=== PATIENT | male | born 1950 | race Caucasian/White ===

== ENCOUNTER 2024-06-08 17:13 | Emergency (ER) | payer OTHER, SELFPAY ==
[2024-06-08] VITALS (7 sets, daily range): BP systolic 166–202; BP diastolic 81–110; BMI 32.6
[2024-06-08 17:40] LABS: % Basophils 0.6 % (0-2); % Eosinophils 0.5 % (0-6); % Immature Granulocytes 0.3 % (0-0.5); % Lymphocytes 16.2 % (20.5-51.1); % Monocytes 7.4 % (1.7-9.3); Absolute Basophils 0.1 10^3/uL (0-0.2); Absolute Lymphocytes 1.3 10^3/uL (1.2-3.4); Absolute Monocytes 0.6 10^3/uL (0.1-0.6); Hematocrit 42.2 % (39.0-52.0); Hemoglobin 14.3 g/dL (13.0-18.0); Mean Corp Hgb Conc. 33.9 g/dL (33.0-37.0); Mean Corpuscular Hgb 30.6 pg (27.0-31.0); Mean Corpuscular Volume 90.2 fL (80.0-94.0); Mean Platelet Volume 8.9 fL (7.4-10.4); Nucleated Red Blood Cells % 0 % (-); Platelet Count 226 10^3/uL (130-400); Red Blood Cell Count 4.68 10^6/uL (4.70-6.10); Red Cell Dist. Width 12.8 % (11.5-14.5)
[2024-06-08 17:46] LABS: ALT (SGPT) 24 U/L (0-50); AST (SGOT) 28 U/L (17-59); Albumin 4.9 g/dl (3.5-5.0); Alkaline Phosphatase 73 U/L (38-126); Blood Urea Nitrogen 16 mg/dl (9-20); Calcium 9.7 mg/dl (8.4-10.2); Carbon Dioxide 26 mmol/L (22-30); Chloride 100 mmol/L (98-107); Glucose 115 mg/dl (70-99); Sodium 135 mmol/L (135-145); Total Bilirubin 1.9 mg/dl (0.2-1.3); eGFR > 60.00
--- NOTE | 2024-06-08 21:16 | ED.GENMED ---
History of Present Illness
General
Chief Complaint: Blood Pressure Problem
Source: patient
Exam Limitations: none
Time Seen by Provider: 06/08/24 21:09
History of Present Illness
History of Present Illness:
See MDM
Past History
Past History
ED Past Medical History: Cancer, HTN and Hypercholesterolemia
ED Past Surgical History: Urological (prostatectomy)
Social History
Tobacco: Non-smoker
Alcohol: None
Drug: None
Personal:
Living: with family
Phy Exam
Physical Exam
Physical Exam:
See MDM
Course
Orders/Labs/Results
Orders:
Orders
06/08/24 17:18
Electrocardiogram (*1) Urgent
Reason for Study: Other
Other Reason for Exam: hypertension
06/08/24 17:19
EKG- Treatment ONCE
06/08/24 17:25
CMP [Comprehensive Metabolic Panel] Urgent
Complete Blood Count/With Diff Urgent
06/08/24 21:16
Amlodipine [Norvasc] 10 mg PO ONCE ONE
Abnormal Lab Results
06/08/24
17:25
RBC 4.68 L 10^6/uL
(4.70-6.10)
Lymphocytes % 16.2 L %
(20.5-51.1)
Glucose 115 H mg/dl
(70-99)
Total Bilirubin 1.9 H mg/dl
(0.2-1.3)
06/08/24 17:25
06/08/24 17:25
Vital Signs
Initial and Last Documented VS:
Initial Vital Signs
Temp Pulse Resp Pulse Ox
97.4 F 71 18 99
06/08/24 17:14 06/08/24 17:14 06/08/24 17:14 06/08/24 17:14
Last Documented Vital Signs
Temp Pulse Resp BP Pulse Ox
97.4 F 69 13 166/84 96
06/08/24 17:14 06/08/24 23:00 06/08/24 23:00 06/08/24 23:00 06/08/24 23:00
MDM/Problems Addressed
Differential Diagnosis Includes:
HPI and MDM Narrative:
73-year-old male presenting for evaluation of asymptomatic hypertension. Patient has a recurrence of prostate cancer and is currently on a biologic medicine called his Zytiga. He was told that this medicine will increase his blood pressure.
Because of the increasing blood pressure, his 10 mg of lisinopril was increased to 40 mg. Patient takes his blood pressure every 2 to 3 days. He noticed that his blood pressure has remained elevated today and came in for evaluation. Patient
denies any complaint. Denies headache, shortness of breath, blurry vision, chest pain. Patient is found to have asymptomatic hypertension. Given that this is likely a worsening side effect of his chronic medication, will give dose of amlodipine
and continue to monitor. Blood work done prior to my evaluation showing no signs of endorgan damage
Physical exam
General: Well appearing and non-toxic. Sitting in bed,
HEENT: protecting airway. Pupils equal reactive
Neck: appears supple
CV: No evidence of cyanosis. Regular rate and rhythm
Resp: No accessory muscle use
Abd: Non-distended
Extremities: No deformities. No pitting edema in his legs
Neuro: alert
Psych: Normal affect
Skin: Intact
Problems Addressed including Acute and Chronic Conditions affecting care:
1. Asymptomatic hypertension
Acuity: acute
Prognosis: stable
Details: Likely related to his biologic medication. Patient is already on 40 mg of lisinopril. Will add amlodipine and continue to monitor
2. [ ]
Acuity: acute
Prognosis: stable
Details:
3. [ ]
Acuity: acute
Prognosis: stable
Details:
4. [ ]
Acuity: acute
Prognosis: stable
Details:
5. [ ]
Acuity:
Prognosis:
Details:
Updates
Differential Diagnosis (but not limited to):
Testing considered:
Drug therapy (if applicable): OTC meds, please see d/c instruction regarding Rx drugs
Amount and/or Complexity of Data Reviewed
Clinical info obtained from: Patient
External data reviewed: N/A
Labs I independently reviewed (but not limited to): Creatinine normal
Radiology: N/A
Pulse Ox: not hypoxic
EKG independently reviewed: Sinus rhythm, normal axis, no STEMI
[employer]: Sinus rhythm
Critical Care: N/A
Risk of Complication:
Social Determinants of health: Good social support
Discussed with other providers: N/A
Escalation of Care includes Admit/Obs: After being observed in the Emergency Department, pt stable for discharge.
Occasional wrong word or 'sound a like' substitutions may have occurred due to the inherent limitations of voice recognition software. Read the chart carefully and recognize, using context, where substitutions have occurred.
*Critical Care Note
Total Time (30-74mins, 75-104mins- exclusive of procedures): Not Applicable
ED Attending Note
-
Portions of this chart may have been created with voice recognition software.� Occasional wrong word or��sound alike� substitutions may have occurred due to the inherent limitations of voice recognition software.
Discharge Plan
Departure
Patient Disposition: Home (Routine Discharge)
Date of Disposition: 06/08/24
Time of Disposition: 23:21
Patient with high blood pressure during this ER visit?: Yes
Discharge Problem:
HTN (hypertension)
Instructions: High Blood Pressure (DC), BLOOD PRESSURE
Prescriptions:
New
amlodipine [Norvasc] 10 mg tablet
10 mg PO DAILY Qty: 30 0RF
No Action
levothyroxine 175 mcg tablet
175 mcg PO DAILY
prednisone 5 mg tablet
5 mg PO DAILY
simvastatin 20 mg tablet
20 mg PO QPM
lisinopril 40 mg tablet
40 mg PO DAILY
abiraterone [Zytiga] 250 mg Tablet
1,000 mg PO DAILY
Rx Instructions:
must be taken on empty stomach, at least 1 hr before or 2 hrs after a meal/food. takes at 6am
ciprofloxacin HCl 750 mg tablet
750 mg PO DAILY Qty: 7 0RF
Referrals:
Mane Simpson MD [Family Provider] -
Activity Restrictions/Additional Instructions:
Please return for any worsening symptoms.
You may return at any time if you have further concerns.
Please follow up with your doctor at the first available appointment, preferably this week.
Thank you for choosing [facility].
Interventions
Interventions:
*Risk Screen - Suicide Last Done: 06/08/24 17:14
*General Assessment Last Done: 06/08/24 21:32
*Neglect/Abuse Screening Last Done: 06/08/24 21:49
ED- Fall Risk Assessment Last Done: 06/08/24 21:32
*ED COVID-19 Vaccine History Last Done: 06/08/24 21:32
ED- Cardiac Assessment Last Done: 06/08/24 21:32
ED- Neurological Assessment Last Done: 06/08/24 21:32
ED- Pulmonary Assessment Last Done: 06/08/24 21:32
Discharge Date and Time
Print Language: CZECH
[2024-06-08] MEDS: NORVASC 10 MG PO (21:29)
== END 2024-06-08 23:50 | disposition home or self-care (01) ==
LOC: EMR 17:13
PROVIDERS: Emergency Medicine; EMERGENCY PHYSICIAN Student in an Organized Health Care Education/Training Program; FAMILY PHYSICIAN Family Medicine
DX: I10 Essential (primary) hypertension (principal); E78.00 Pure hypercholesterolemia, unspecified; Z90.79 Acquired absence of other genital organ(s); C61 Malignant neoplasm of prostate
CPT/HCPCS: 99283; 80053; 85025; 93005

== ENCOUNTER → 2024-07-12 09:02 | Outpatient (REF) | payer OTHER, SELFPAY | LOC: RAD 09:02 | PROVIDERS: ATTENDING PHYSICIAN Physician Assistant Medical; FAMILY PHYSICIAN Family Medicine | DX: Z91.89 Other specified personal risk factors, not elsewhere classified (principal); C61 Malignant neoplasm of prostate; C77.8 Secondary and unspecified malignant neoplasm of lymph nodes of multiple regions; Z79.52 Long term (current) use of systemic steroids; R79.89 Other specified abnormal findings of blood chemistry | CPT/HCPCS: 77080 ==

== ENCOUNTER 2025-02-06 17:45 | Inpatient (IN) | payer OTHER, SELFPAY ==
[2025-02-06] VITALS (11 sets, daily range): BP systolic 120–147; BP diastolic 59–82; BMI 31.0; BMI 31.3
--- NOTE | 2025-02-06 09:04 | ED.GENMED ---
History of Present Illness
General
Chief Complaint: Musculo-Skeletal Complaint
Source: patient
Exam Limitations: none
Time Seen by Provider: 02/06/25 09:01
Nursing documentation reviewed up to this point in time: agreed with
History of Present Illness
History of Present Illness:
The patient is a pleasant 74-year-old man with a past medical history of prostate cancer, prostatectomy, and urethral sphincter implant who presents with fairly sudden onset of severe pain in his right groin area. Patient reports the pain started
yesterday. Reports it so painful he cannot walk. Patient reports that while still the pain is extremely mild but with walking, he experiences severe pain in his right groin, right testicle and right inner thigh. Patient reports cough and
congestion about a week ago that is now improved but still reports a dry cough. Patient found to have a fever on arrival to the ED. Patient denies weakness and numbness of the legs. He denies back pain. He denies nausea, vomiting and diarrhea.
Patient reports he also self catheterizes twice a week to drain urine.
Past History
Past History
ED Past Medical History: Cancer, HTN and Hypercholesterolemia
ED Past Surgical History: Urological (prostatectomy)
Social History
Tobacco: Non-smoker
Alcohol: None
Drug: None
Personal:
Living: with family
Employment: Other
Family History
Family History: Other
Review of Systems
Review of Systems
Allergies reviewed?: Yes
All Other Systems: ROS reviewed and negative except as documented in HPI and ROS
Constitutional: Reports chills
EENT: Reports no symptoms
Respiratory: Reports no symptoms
Cardiac: Reports no symptoms
ABD/GI: Reports abdominal pain (Right groin area pain)
: Reports other (Right testicle and groin area pain)
Musculoskeletal: Reports other (Pain rating into right thigh)
Skin: Reports no symptoms
Neurological: Reports no symptoms
Endocrine: Reports no symptoms
Hematologic/Lymphatic: Reports no symptoms
Psychiatric: Reports no symptoms
Phy Exam
Physical Exam
Physical Exam:
Physical Exam
General: no apparent distress, not acutely ill
Neck: supple. no meningeal signs. normal psoterior pharynx
Heart: s1/s2 regular rate and rhythm, no murmur. equal radial pulses.
Lungs: no acute respiratory distress. clear bilaterally
Abdomen: Abdomen is soft throughout. No masses felt. No inguinal hernias felt. Mild tenderness in right testicle area with implantable device felt in right scrotal area. No signs of scrotal cellulitis. No skin redness or
swelling of peritoneum.
Neuro: alert and oriented. no focal neurological deficits
Skin: No crepitus, erythema or swelling of right thigh. No concerning rash
Psychiatric: well kept. interactive and cooperative
Extremities: no edema. no calf tenderness. negative homans. good distal pulses. Strong pulses in bilateral feet. Able to fully extend and flex right hip with no specific pain in right hip.
Course
Orders/Labs/Results
Orders:
Orders
02/06/25 09:10
COVID-19 Antigen Urgent
Source: Nasal Swab
Influenza A+B Rapid Molecular Urgent
KATHLEEN Source: Nasal Swab
Specimen Description:
02/06/25 09:19
Complete Blood Count/With Diff Urgent
Comprehensive Metabolic Panel Urgent
Lactic Acid Urgent
Magnesium Urgent
Urinalysis Reflex To Culture Urgent
Date Specimen was Collected: 02/06/25
Time Specimen was Collected: 09:13
Urine Microscopic Reflex Cult Urgent
Urine Culture Urgent
KATHLEEN Source: U
Specimen Description:
Date Specimen was Collected: 02/06/25
Time Specimen was Collected: 09:13
02/06/25 09:52
0.9% Sodium Chloride 1000 ml [Nss] 1,000 ml IV BOLUS
Acetaminophen [Tylenol] 1,000 mg PO NOW STA
02/06/25 10:16
Ketorolac [Toradol] 30 mg IV NOW STA
02/06/25 11:24
CT Abd/pel Without Iv Or Oral Urgent
Comment:
Reason For Exam: fever, R groin pain
02/06/25 11:25
CefTRIAXone [Rocephin] 1,000 mg IV NOW STA
02/06/25 13:22
Scrotum US [US Scrotum] Urgent
Comment:
Reason For Exam: R groin pain, UTI
02/06/25 13:45
Blood Culture Q30M
KATHLEEN Source: Blood/Venous
Specimen Description:
02/06/25 14:15
Blood Culture Q30M
KATHLEEN Source: Blood/Venous
Specimen Description:
Abnormal Lab Results
02/06/25
09:19
WBC 12.4 H 10^3/uL
(4.8-10.8)
RBC 4.27 L 10^6/uL
(4.70-6.10)
Hgb 12.8 L g/dL
(13.0-18.0)
Hct 38.6 L %
(39.0-52.0)
Absolute Neuts (auto) 10.6 H 10^3/uL
(1.4-6.5)
Absolute Lymphs (auto) 0.6 L 10^3/uL
(1.2-3.4)
Absolute Monos (auto) 1.1 H 10^3/uL
(0.1-0.6)
Neutrophils % 85.6 H %
(42.2-75.2)
Lymphocytes % 4.9 L %
(20.5-51.1)
BUN 22 H mg/dl
(9-20)
Glucose 140 H mg/dl
(70-99)
Total Bilirubin 2.3 H mg/dl
(0.2-1.3)
Ur Occult Blood Reflex 4+ A
(Negative)
Leukocyte Esterase Rfl 3+ A
(Negative)
Urine RBC 40-50 A /HPF
(0-2)
Urine WBC (Reflex) 16-20 A /HPF
(0-5)
Urine Bacteria (Reflex) Few A
(Negative)
Urine Albumin (Reflex) 2+ A
(Neg - Trace)
02/06/25 09:19
02/06/25 09:19
Vital Signs
Initial and Last Documented VS:
Initial Vital Signs
Temp Pulse Resp BP Pulse Ox
101.8 F H 86 16 147/70 96
02/06/25 09:00 02/06/25 09:00 02/06/25 09:00 02/06/25 09:00 02/06/25 09:00
Last Documented Vital Signs
Temp Pulse Resp BP Pulse Ox
101.8 F H 83 13 147/70 97
02/06/25 09:00 02/06/25 09:05 02/06/25 09:05 02/06/25 09:05 02/06/25 09:05
MDM/Problems Addressed
Differential Diagnosis Includes:
Orchitis, epididymitis, infected urethral device, renal colic, septic right hip
MDM/Problems Addressed:
Patient presents with acute pain in right groin area and right inner thigh
Chronic conditions affecting care:
Urinary incontinence
Acute Exacerbation and/or Progression of Chronic Illness:
Patient may have acute urinary infection due to chronic urinary incontinence
*Pulse Oximetry
SaO2: 95
Oxygen Mode of Delivery: Room air
Patient hypoxic: no
*EKG
Interpreted by ED Provider?: NA
*[employer]ling [employer]ader Interpretation
Rate: normal
Interpretation: normal
Rhythm: sinus
*Critical Care Note
Total Time (30-74mins, 75-104mins- exclusive of procedures): Not Applicable
Data Reviewed
Review of Other/Old Records Reveals: Discharge Summary (Discharge summary reviewed from 2022 when patient was septic due to UTI)
Source: patient and spouse
Patient Management
Social determinants of health affecting care: Living situation and Strong social support
Discussion with other providers: Hospitalist and Other (Case discussed with Dr. Almeida from urology who agreed to evaluate patient. He personally looked over patient's CT and did not feel that there was any air or abscess around urethral device)
ED Attending Note
-
Portions of this chart may have been created with voice recognition software.� Occasional wrong word or��sound alike� substitutions may have occurred due to the inherent limitations of voice recognition software.
Discharge Plan
Departure
Patient Disposition: Admit
Date of Disposition: 02/06/25
Time of Disposition: 13:07
Admit to: Med/Surg
Presentation/result/management discussed w/ accepting MD/DO: Hospitalist
Patient with high blood pressure during this ER visit?: Yes
Condition: Good
Covid-19: Negative COVID-19
Discharge Problem:
UTI (urinary tract infection), Fever
Prescriptions:
No Action
levothyroxine 175 mcg tablet
175 mcg PO MOTUWETHFRSA@0600
prednisone 5 mg tablet
5 mg PO DAILY
simvastatin 20 mg tablet
20 mg PO QPM
lisinopril 40 mg tablet
40 mg PO DAILY
abiraterone [Zytiga] 250 mg Tablet
1,000 mg PO DAILY@0600
Rx Instructions:
must be taken on empty stomach, at least 1 hr before or 2 hrs after a meal/food. takes at 6am
amlodipine 5 mg tablet
5 mg PO DAILY
calcium carbonate-vitamin D3 [Calcium + D] 600 mg-5 mcg (200 unit) Tablet
1 tab PO DAILY
Referrals:
Mane Simpson MD [Family Provider, Family Practice]
Interventions
Interventions:
*Risk Screen - Suicide Last Done: 02/06/25 09:00
*General Assessment Last Done: 02/06/25 09:00
*Neglect/Abuse Screening Last Done: 02/06/25 09:00
*ED- Fall Risk Assessment Last Done: 02/06/25 09:00
*ED COVID-19 Vaccine History Last Done: 02/06/25 09:00
*ED Influenza Vaccine History Last Done: 02/06/25 09:00
ED-Musculoskeletal Assessment Last Done: 02/06/25 09:00
Discharge Date and Time
Print Language: TURKISH
[2025-02-06 09:34] LABS: Hematocrit 38.6 % (39.0-52.0); Hemoglobin 12.8 g/dL (13.0-18.0); Mean Corp Hgb Conc. 33.2 g/dL (33.0-37.0); Mean Corpuscular Volume 90.4 fL (80.0-94.0); Nucleated Red Blood Cells % 0 % (-); Platelet Count 194 10^3/uL (130-400); Red Cell Dist. Width 13.2 % (11.5-14.5)
[2025-02-06 09:45] LABS: COVID-19 Antigen Negative (Negative)
[2025-02-06 10:03] LABS: ALT (SGPT) 16 U/L (0-50); AST (SGOT) 18 U/L (17-59); Albumin 3.9 g/dl (3.5-5.0); Alkaline Phosphatase 44 U/L (38-126); Blood Urea Nitrogen 22 mg/dl (9-20); Calcium 8.9 mg/dl (8.4-10.2); Carbon Dioxide 27 mmol/L (22-30); Chloride 106 mmol/L (98-107); Estimated Creatinine Clearance 80 ml/min; Glucose 140 mg/dl (70-99); Magnesium 1.9 mg/dl (1.6-2.3); Potassium 3.8 mmol/L (3.5-5.1); Sodium 137 mmol/L (135-145); Total Protein 6.8 g/dl (6.3-8.2); eGFR > 60.00
[2025-02-06] MEDS: TORADOL 30 MG IV (10:23)
[2025-02-06] MEDS: TYLENOL 1000 MG PO (10:23)
[2025-02-06] MEDS: NSS 1000 IV (10:23)
[2025-02-06 10:46] LABS: Urine Character Clear (Clear)
[2025-02-06 10:51] LABS: Urine Red Blood Cell 40-50 /HPF (0-2); Urine White Cell 16-20 /HPF (0-5)
[2025-02-06] MEDS: ROCEPHIN 1000 MG IV ×2 (12:56→23:06)
--- NOTE | 2025-02-06 14:06 | CM ---
mountain services manager reviewed patient's chart and met with patient and patient lives with spouse in a 1 story home, with 2 steps to enter, patient is independent with adl's and ambulation, no dme, patient drives.
PCP: Dr. Mane Simpson
Pharmacy: [facility]
Plan; Home with spouse when stable.
--- NOTE | 2025-02-06 18:02 | HPS.HSE ---
Addendum entered and electronically signed by Krys Mensah MD 02/06/25 19:01:
I personally performed a history and physical exam of the patient and discussed management with the resident. I reviewed the resident's note and agree with the documented findings and plan of care HPI/CC.
GENERAL: well developed, well nourished, obese male in no apparent distress
HEENT: NC/AT
HEART: regular rate and rhythm, +S1, +S2
LUNGS : clear to auscultation bilaterally
ABDOM: soft, nontender, nondistended, + bowel sounds
EXT: no cyanosis, clubbing, or edema--? fullness in right groin--LAD?, pulled muscle?--no hernia noted by Dr. Ness's exam
NEUROLOGIC: grossly intact
Sepsis due to unknown source possibly urinary--CT scan with stranding around the urinary bladder--WBC elevated and UTI likely--ADMIT--check urine and blood cultures--cont rocephin until cultures back--await urology input
Microscopic hematuria-- Urine analysis shows urine RBC of 40-50/high-power field, 4+ urine occult blood--renal stones, infection, radiation changes all possible--renal US pending
Right lower inguinal pain--presenting complaint--Present on right inguinal area radiating down the inner part of thigh, not able to elicit via palpation-- Scrotal ultrasound shows bilateral testicular microlithiasis which are usually
asymptomatic--Tylenol as needed for pain
Prostate cancer--s/p resection and XRT--Continue with Zytiga and prednisone 5 mg as he takes it with Zytiga to prevent side effects- Every 6 months receives a hormonal shot to his left arm at [facility]--watch for stress dose steroid needs
essential hypertension-- Continue with lisinopril 40 mg and amlodipine 5 mg p.o. daily
Hyperlipidemia- Continue simvastatin
DVT prophy-- Lovenox
code status--Full code
Original Note:
Family Physician
-
Family Physician: Mane Simpson
Chief Complaint
-
Right lower groin pain
History of Present Illness
74-year-old man presents to the ED with his at bedside with past medical history of prostate cancer, prostatectomy, urethral sphincter implant, hypertension, hyperlipidemia, hypothyroidism with sudden onset of severe sharp localized pain in the
right groin area. Pain is less on lying down. Aggravated on movement and when he walks a pound the inner side of his right thigh into his scrotum. On admission labs show a WBC of 12.8, hemoglobin 12.8. CMP shows lactate of 0.9, bili 2.3. His
vitals show a temperature of 101.8 with no tachycardia, increase in respiratory rate, hypotension. He met the criteria for sepsis. He sees Dr. Davis at [facility] for his oncology needs.
Medical History
Past Medical History
Past Medical History: Reports Other (Prostate cancer, hypertension, hypothyroidism, hyper lipidemia)
Past Surgical History: Reports Other (Prostatectomy, urethral sphincter implant, prostatic sling procedure)
Social History
Tobacco: Non-smoker
Alcohol: Occasional
Drug: None
Personal:
Living: With Family
Family History
Family History: Not pertinent
Allergies / Home Medications
Allergies reflects when Allergies were last updated in [employer].
Home Medications with original date entered in [employer]
Allergy/Medication List:
Allergies
Allergy/AdvReac Type Severity Reaction Status Date / Time
No Known Allergies Allergy Verified 06/08/24 17:16
Home Medications
abiraterone 250 mg tablet (Zytiga) 1,000 mg PO DAILY@0600 01/03/23
levothyroxine 175 mcg tablet 175 mcg PO MOTUWETHFRSA@0600 01/03/23
lisinopril 40 mg tablet 40 mg PO DAILY 01/03/23
prednisone 5 mg tablet 5 mg PO DAILY 01/03/23
simvastatin 20 mg tablet 20 mg PO QPM 01/03/23
amlodipine 5 mg tablet 5 mg PO DAILY 02/06/25
calcium 600 mg (as carbonate)-vitamin D3 5 mcg (200 unit) tablet 1 tab PO DAILY 02/06/25
Review of Systems
-
History Source: Patient
A 12 point ROS was completed and negative except as noted: Yes
Abdomen/GI: Reports Abdominal Pain
Physical Exam
Vital Signs
Vital Signs
Temp Pulse Resp BP Pulse Ox
98.9 F 66 16 120/60 95
02/06/25 14:14 02/06/25 14:14 02/06/25 14:14 02/06/25 14:14 02/06/25 14:16
Physical Exam
General: Well Developed
Respiratory: Clear
Cardiac: S1/S2 and Regular Rhythm
GI: Soft, Non Tender, Non Distended, Normal Bowel Sounds and Other (There is a small 1 cm x 1 cm none mobile firm well-circumscribed mass present in the right inguinal area.)
Musculoskeletal: No Clubbing
Skin: Warm and Dry
Neuro: Awake, Alert, Oriented and AO x 3
Laboratory Results
-
02/06/25 09:19
02/06/25 09:19
Laboratory Results
Lactic Acid 0.9 mmol/L (0.7-2.0) 02/06/25 09:19
Total Bilirubin 2.3 mg/dl (0.2-1.3) H 02/06/25 09:19
AST 18 U/L (17-59) 02/06/25 09:19
ALT 16 U/L (0-50) 02/06/25 09:19
Alkaline Phosphatase 44 U/L (38-126) 02/06/25 09:19
Data Reviewed
-
CT Scan: Report Reviewed by me and Discussed with Physician
Lab Data: Labs Reviewed by me and Discussed with Physician
Impression/Plan
-
Sepsis due to unknown source possibly urinary:
- Patient met 2 of the 4 SIRS criteria which were leukocytosis with an increased WBC of 12.8 and a temperature of 101.8
- Differential diagnosis includes cystitis, pyelonephritis, UTI, prostatitis
-Urinalysis shows 3+ leukocyte esterase, 16-20 urine WBC, few urine bacteria this is a clean-catch sample as squamous cells are only 6-10
- Awaiting urine culture and blood culture to determine source of infection
- Continue ceftriaxone as empiric therapy before cultures results so that we can taper to specific organism
-Will hold off on fluids as patient is able to tolerate p.o. intake, no active ongoing losses of fluid, no hypotension
- Urology was consulted
Microscopic hematuria:
-Vitals are stable and patient is afebrile
- Urine analysis shows urine RBC of 40-50/high-power field, 4+ urine occult blood
- Differential diagnosis is kidney stones, radiation cystitis, ureteral stone, glomerulonephritis
- BUN/creatinine function is normal
- Awaiting urine culture and blood cultures
- Will order renal ultrasound
Right lower inguinal pain:
-Present on right inguinal area radiating down the inner part of thigh, not able to elicit via palpation
- Differential diagnosis is inguinal/femoral hernia, muscle strain, urethral sphincter complication
- CT scan of abdomen/pelvis 2 mm calcification in the central pole of the right kidney, most likely nephrolithiasis, potential cystitis, small fat-containing hernia in the right paramedian abdominal wall which is stable, no diverticulitis, normal
appendix
- Scrotal ultrasound shows bilateral testicular microlithiasis which are usually asymptomatic
- Physical examination for inguinal hernia was negative
-Tylenol as needed for pain
- Urology consult placed to investigate a potential urethral sphincter complication
Prostate cancer:
- Continue with Zytiga and prednisone 5 mg as he takes it with Zytiga to prevent side effects
- Patient was diagnosed in [address] Davis at [facility]
- Every 6 months receives a hormonal shot to his left arm at [facility]
essential hypertension:
-Blood pressures 120/60 and stable
- Continue with lisinopril 40 mg and amlodipine 5 mg p.o. daily
Hyperlipidemia:
- Continue simvastatin
DVT prophylaxis: Lovenox 40
Full code
--- NOTE | 2025-02-06 19:10 | CONS.URO ---
Addendum entered and electronically signed by Jos Almeida MD 02/06/25 19:24:
Will order RLE US to r/o DVT
Original Note:
Consultation
-
Date/Time Consultation Performed: 189902/06/25
Performing Provider: Elle
Reason for Consultation: Groin pain, fever
Medical History
History of Present Illness
74M past medical history of prostate cancer, prostatectomy, artificial urethral sphincter implant
Cared for by Dr. Arambula at [place]
Also hx hypertension, hyperlipidemia, hypothyroidism
Presents with sudden onset of severe sharp localized pain in the right groin area. Pain is less on lying down Aggravated on movement and when he walks. Pain is primarily on the inner side of his right thigh and radiates up into his scrotum.
He has a hx of urethral stricture requiring maintenance dilation with CIC and occasional dilation in OR
OTherwise he voids without difficulty
No recent bothersome UTI symptoms
On admission labs show a WBC of 12.8, hemoglobin 12.8. CMP shows lactate of 0.9 Found to have a fever near 102 with no tachycardia, increase in respiratory rate, hypotension. He was admitted for suspected sepsis.
Past Medical History
Past Medical History: Other (as above)
Past Surgical History: Urological
Social History
Tobacco: Non-smoker
Family History
Family History: Reviewed & Not Pertinent
Allergies/Home Medications
Allergies
Allergy/AdvReac Type Severity Reaction Status Date / Time
No Known Allergies Allergy Verified 06/08/24 17:16
Home Medications
�Medication �Instructions �Recorded �Confirmed �Type
abiraterone 250 mg tablet (Zytiga) 1,000 mg PO DAILY@0600 01/03/23 02/06/25 History
levothyroxine 175 mcg tablet 175 mcg PO MOTUWETHFRSA@0600 01/03/23 02/06/25 History
lisinopril 40 mg tablet 40 mg PO DAILY 01/03/23 02/06/25 History
prednisone 5 mg tablet 5 mg PO DAILY 01/03/23 02/06/25 History
simvastatin 20 mg tablet 20 mg PO QPM 01/03/23 02/06/25 History
amlodipine 5 mg tablet 5 mg PO DAILY 02/06/25 02/06/25 History
calcium 600 mg (as 1 tab PO DAILY 02/06/25 02/06/25 History
carbonate)-vitamin D3 5 mcg (200
unit) tablet
Physical Exam
Vital Signs
Vital Signs
Temp Pulse Resp BP Pulse Ox
98.6 F 86 20 131/82 99
02/06/25 18:22 02/06/25 18:22 02/06/25 18:22 02/06/25 18:22 02/06/25 18:22
Lab / Testing Results
Laboratory Results
02/06/25 09:19
02/06/25 09:19
Physical Exam
General: Well Developed, Well Nourished and No Apparent Distress
Respiratory: Non Labored Respirations
GI: Soft and Non Tender
Genito-urinary: No Costovertebral Tend and Other (normal scrotum and testicles, no pain to palpation at any site, AUS pump in good position without induration)
Neuro: AO x 3
Psych: Calm and Intact Judgement
Assessment / Plan
-
74M with prostate cancer s/p prostatectomy, radiation, on ADT
Incontinence s/p AUS >5 years ago
Urethral stricture maintained open with twice weekly CIC
Care managed by Dr. Arambula at [place]
Presenting with R inner thigh pain radiating to scrotum
Fever/sepsis with positive UA
- No signs of abscess, cellulitis, intrascrotal infection, or infected prosthetic device. CT shows no air in soft tissues or around . No induration or tenderness of scrotum, groin, or inner thigh
- No suspected source of groin pain. Would be a very unusual manifestation of UTI. Consider alternate sources - musculoskeletal? Radiculopathy? DVT?
- Continue abx pending culture for possible UTI
Data Reviewed
-
CT Scan: Image personally visualized and interpreted
[2025-02-06] MEDS: OFIRMEV 100 IV (20:55)
--- NOTE | 2025-02-06 22:20 | PTCARENOTE ---
Recieved pt. from ED. Pt. ambulated from stretcher to bed. AAOx3. Pt. oriented to floor and call crawford placed within reach. Patient care ongoing
[2025-02-06] MEDS: OSCAL 500 + D 500 MG PO (23:06)
[2025-02-06] MEDS: STERILE WATER FOR INJECTION 10 ML IV (23:06)
[2025-02-06] MEDS: LOVENOX 40 MG SC (23:06)
[2025-02-07] MEDS: SYNTHROID 175 MCG PO (05:55)
[2025-02-07] MEDS: NON-FORMULARY ITEM 1000 MG PO (05:55)
[2025-02-07 07:00] VITALS: BP 130/88
[2025-02-07 07:09] LABS: Hematocrit 34.9 % (39.0-52.0); Hemoglobin 11.7 g/dL (13.0-18.0); Mean Corp Hgb Conc. 33.5 g/dL (33.0-37.0); Mean Corpuscular Volume 90.4 fL (80.0-94.0); Nucleated Red Blood Cells % 0 % (-); Platelet Count 165 10^3/uL (130-400); Red Cell Dist. Width 13.0 % (11.5-14.5)
[2025-02-07 07:11] LABS: INR 1.17; PT 15.2 Sec (11.4-14.6)
[2025-02-07 07:12] LABS: APTT 36.5 Sec (23.4-35.0)
[2025-02-07 07:32] LABS: ALT (SGPT) 13 U/L (0-50); AST (SGOT) 16 U/L (17-59); Albumin 3.4 g/dl (3.5-5.0); Alkaline Phosphatase 44 U/L (38-126); Blood Urea Nitrogen 17 mg/dl (9-20); Calcium 8.7 mg/dl (8.4-10.2); Carbon Dioxide 24 mmol/L (22-30); Chloride 107 mmol/L (98-107); Estimated Creatinine Clearance 103 ml/min; Glucose 108 mg/dl (70-99); Magnesium 1.9 mg/dl (1.6-2.3); Potassium 3.5 mmol/L (3.5-5.1); Sodium 134 mmol/L (135-145); Total Protein 6.3 g/dl (6.3-8.2); eGFR > 60.00
[2025-02-07] MEDS: OSCAL 500 + D PO ×2 (08:00→08:07)
[2025-02-07] MEDS: ZESTRIL 40 MG PO (08:03)
[2025-02-07] MEDS: NORVASC 5 MG PO (08:03)
[2025-02-07] MEDS: DELTASONE 5 MG PO (08:10)
[2025-02-07 09:20] LABS: Glycohemoglobin (HgbA1c) 5.6 % (4.0-5.6)
[2025-02-07] MEDS: ROCEPHIN 2000 MG IV (13:48)
[2025-02-07] MEDS: STERILE WATER FOR INJECTION 20 ML IV (13:48)
[2025-02-07] MEDS: TYLENOL 650 MG PO ×3 (13:48→23:00)
[2025-02-07] MEDS: FLUSH (NSS) 1 FLUSH IV (13:48)
[2025-02-07] MEDS: TORADOL 15 MG IV ×2 (14:00→20:09)
--- NOTE | 2025-02-07 14:04 | CM ---
Patient seen at bedside with physician on . Patient for Orthoded[facility] consult per physician. Patient continues to complain of difficulty with walking and plan is for PT/OT assessment when medically appropriate. CM will continue to follow for
discharge planning needs.
Plan; home with VN and watch for possible SNF needs
[2025-02-07 14:49] VITALS: BP 134/65
[2025-02-07 15:42] VITALS: BP 134/65; PULSE 81; O2SAT 96
--- NOTE | 2025-02-07 15:59 | W.PN.HOSP.TC ---
Addendum entered and electronically signed by Krys Mensah MD 02/07/25 18:20:
I saw and evaluated the patient independently. I reviewed and discussed the resident�s note and agree with findings and plan as documented by Dr. Ness.
GENERAL: well developed, well nourished, obese male in no apparent distress
HEENT: NC/AT
HEART: regular rate and rhythm, +S1, +S2
LUNGS : clear to auscultation bilaterally
ABDOM: soft, nontender, nondistended, + bowel sounds
EXT: no cyanosis, clubbing, or edema--? fullness in right groin--LAD?, pulled muscle?--no hernia noted by Dr. Ness's exam
NEUROLOGIC: grossly intact
Sepsis due to unknown source possibly urinary--CT scan with stranding around the urinary bladder--WBC elevated and UTI likely- urine and blood cultures negative--can stop rocephin--apprec urology input
Microscopic hematuria-- Urine analysis shows urine RBC of 40-50/high-power field, 4+ urine occult blood--renal stones, infection, radiation changes all possible--renal US WNL
Right lower inguinal pain--presenting complaint--Present on right inguinal area radiating down the inner part of thigh, not able to elicit via palpation-- Scrotal ultrasound shows bilateral testicular microlithiasis which are usually
asymptomatic--Tylenol as needed for pain--US neg for DVT--concern for possible musculoskeletal disease?
Prostate cancer--s/p resection and XRT--Continue with Zytiga and prednisone 5 mg as he takes it with Zytiga to prevent side effects- Every 6 months receives a hormonal shot to his left arm at [facility]--watch for stress dose steroid needs
essential hypertension-- Continue with lisinopril 40 mg and amlodipine 5 mg p.o. daily
Hyperlipidemia- Continue simvastatin
DVT prophy-- Lovenox
code status--Full code
Original Note:
Today's Communication/Plan
-
-
Assessment / Plan
Assessment / Plan
Sepsis due to unknown source possibly urinary:
- Patient met 2 of the 4 SIRS criteria which were leukocytosis with an increased WBC of 12.8 and a temperature of 101.8
- Differential diagnosis includes cystitis, pyelonephritis, UTI, prostatitis
-Urinalysis shows 3+ leukocyte esterase, 16-20 urine WBC, few urine bacteria this is a clean-catch sample as squamous cells are only 6-10
- urine and blood cultures negative, will DC antibiotics
-Will hold off on fluids as patient is able to tolerate p.o. intake, no active ongoing losses of fluid, no hypotension
Microscopic hematuria:
- Vitals are stable and patient is afebrile
- Urine analysis shows urine RBC of 40-50/high-power field, 4+ urine occult blood
- Differential diagnosis is kidney stones, radiation cystitis, ureteral stone, glomerulonephritis
- BUN/creatinine function is normal
- Renal u/s negative for any abnormalities
- Will consider a urology outpatient follow up
Right lower inguinal pain:
-Present on right inguinal area radiating down the inner part of thigh, not able to elicit via palpation which is his presenting complaint
- Differential diagnosis is inguinal/femoral hernia, muscle strain, urethral sphincter complication, DVT
- CT scan of abdomen/pelvis 2 mm calcification in the central pole of the right kidney, most likely nephrolithiasis, potential cystitis, small fat-containing hernia in the right paramedian abdominal wall which is stable, no diverticulitis, normal
appendix
- Scrotal ultrasound shows bilateral testicular microlithiasis which are usually asymptomatic
- Physical examination for inguinal hernia was negative
- Ordered both IV ketorolac and Tylenol for his pain
- U/S lower extremity negative for DVT
- Urology wants to consider alternate sources such as musculoskeletal or radiculopathy
- Ordered physical therapy and occupational therapy
Prostate cancer:
- Continue with Zytiga and prednisone 5 mg as he takes it with Zytiga to prevent side effects
- Patient was diagnosed in [address] Davis at [facility]
- Every 6 months receives a hormonal shot to his left arm at [facility]
essential hypertension:
-Blood pressures 135/65 and stable
- Continue with lisinopril 40 mg and amlodipine 5 mg p.o. daily
Anticipated Discharge: 24 - 48 hours
Subjective/Interval History
-
Date of Service: February 07, 2025
No overnight events
Patient is stating that his pain is more severe than yesterday in the same right lower quadrant inguinal region shooting down the inner aspect of his thigh. He states that he needs better pain control medication.
Objective Data
-
Labs:
Laboratory Results
02/07/25
06:46
WBC 9.2
Hgb 11.7 L
Hct 34.9 L
Plt Count 165
PT 15.2 H
INR 1.17
APTT 36.5 H
Sodium 134 L
Potassium 3.5
Chloride 107
Carbon Dioxide 24
BUN 17
Creatinine 0.7
Glucose 108 H
Calcium 8.7
Total Bilirubin 1.8 H
AST 16 L
ALT 13
Alkaline Phosphatase 44
Vital Signs:
Vital Signs
Temp Pulse Resp BP Pulse Ox
100.2 F 81 18 134/65 96
02/07/25 14:49 02/07/25 14:49 02/07/25 14:49 02/07/25 14:49 02/07/25 14:49
I&O
02/06/25 02/07/25 02/08/25
06:59 06:59 06:59
Intake Total 480 / 480
Balance 480 / 480
Review of Systems
-
All other systems: Reviewed and negative
Abdomen/GI: Reports Abdominal Pain
Physical Exam
-
General: No Apparent Distress and Comfortable
HEENT: Negative Oxygen
Respiratory: Clear to Auscultation
Cardiac: Regular Rhythm and S1/S2; Negative Murmur or Rub
GI: Soft, Nontender, Nondistended and Normal Bowel Sounds
Musculoskeletal: No Edema
Neuro: Awake, Alert, Oriented, No Motor Deficits and Nonfocal/Grossly Intact
Psych: Calm
Data Reviewed
-
Labs: Labs Reviewed by me and Discussed with Physician
[2025-02-07] MEDS: LOVENOX 40 MG SC (18:20)
[2025-02-07] MEDS: LIPITOR 10 MG PO (18:20)
[2025-02-07] MEDS: OSCAL 500 + D 500 MG PO (22:56)
[2025-02-07 23:02] VITALS: BP 119/55
--- NOTE | 2025-02-08 02:28 | DOWNTIME ---
There was a [employer] Downtime on 02/08/2025 from 0100 to 02/08/2025 at 0215. Downtime documentation of patient's care, including medication administrations, has been reconciled in the electronic record per guidelines. Refer to the
patient's paper chart under the miscellaneous tab to see printed paper medication records and downtime forms.
[2025-02-08] MEDS: TYLENOL 650 MG PO ×2 (06:02→12:15)
[2025-02-08] MEDS: SYNTHROID 175 MCG PO (06:02)
[2025-02-08] MEDS: NON-FORMULARY ITEM 1000 MG PO (06:03)
[2025-02-08] MEDS: TORADOL 15 MG IV ×2 (06:15→14:43)
[2025-02-08 07:00] VITALS: BP 123/67
[2025-02-08] MEDS: DELTASONE 5 MG PO (07:34)
[2025-02-08 07:35] LABS: Hematocrit 35.8 % (39.0-52.0); Hemoglobin 11.9 g/dL (13.0-18.0); Mean Corp Hgb Conc. 33.2 g/dL (33.0-37.0); Mean Corpuscular Volume 92.3 fL (80.0-94.0); Nucleated Red Blood Cells % 0 % (-); Platelet Count 183 10^3/uL (130-400); Red Cell Dist. Width 13.2 % (11.5-14.5)
[2025-02-08] MEDS: NORVASC PO (07:35)
[2025-02-08] MEDS: ZESTRIL PO (07:35)
[2025-02-08] MEDS: ZESTRIL 40 MG PO (08:13)
[2025-02-08 08:22] LABS: ALT (SGPT) 13 U/L (0-50); AST (SGOT) 17 U/L (17-59); Albumin 3.4 g/dl (3.5-5.0); Alkaline Phosphatase 44 U/L (38-126); Blood Urea Nitrogen 16 mg/dl (9-20); Calcium 8.2 mg/dl (8.4-10.2); Carbon Dioxide 22 mmol/L (22-30); Chloride 106 mmol/L (98-107); Estimated Creatinine Clearance 103 ml/min; Glucose 106 mg/dl (70-99); Magnesium 2.2 mg/dl (1.6-2.3); Potassium 3.9 mmol/L (3.5-5.1); Sodium 136 mmol/L (135-145); Total Protein 6.3 g/dl (6.3-8.2); eGFR > 60.00
[2025-02-08 11:14] VITALS: BP 136/77; PULSE 70; O2SAT 97
--- NOTE | 2025-02-08 11:22 | PTOTSP ---
Pt currently at independent level with basic self care, transfers and functional mobility in room, bathroom and x household distances without AD. No further skilled OT indicated at this time
--- NOTE | 2025-02-08 14:20 | W.PN.HOSP.TC ---
Addendum entered and electronically signed by Krys Mensah MD 02/08/25 15:49:
I saw and evaluated the patient independently. I reviewed and discussed the resident�s note and agree with findings and plan as documented by Dr. Ness.
GENERAL: well developed, well nourished, obese male in no apparent distress
HEENT: NC/AT
HEART: regular rate and rhythm, +S1, +S2
LUNGS : clear to auscultation bilaterally
ABDOM: soft, nontender, nondistended, + bowel sounds
EXT: no cyanosis, clubbing, or edema
NEUROLOGIC: grossly intact
Sepsis due to unknown source --CT scan with stranding around the urinary bladder-- urine and blood cultures negative--can stop rocephin--apprec urology input
Microscopic hematuria-- Urine analysis shows urine RBC of 40-50/high-power field, 4+ urine occult blood--renal stones, infection, radiation changes all possible--renal US WNL
Right lower inguinal pain--presenting complaint--Present on right inguinal area radiating down the inner part of thigh, not able to elicit via palpation-- Scrotal ultrasound shows bilateral testicular microlithiasis which are usually
asymptomatic--Tylenol as needed for pain--US neg for DVT--concern for possible musculoskeletal disease?--will send pt home with 600mg motrin Q8H prn--f/u with PCP
Prostate cancer--s/p resection and XRT--Continue with Zytiga and prednisone 5 mg as he takes it with Zytiga to prevent side effects- Every 6 months receives a hormonal shot to his left arm at [facility]--watch for stress dose steroid needs
essential hypertension-- Continue with lisinopril 40 mg and amlodipine 5 mg p.o. daily
Hyperlipidemia- Continue simvastatin
DVT prophy-- Lovenox
code status--Full code
Original Note:
Today's Communication/Plan
-
- discharge today with follow up instuctions
Assessment / Plan
Assessment / Plan
Resolved Sepsis due to unknown source possibly urinary:
- Stable on discharge, vitals stable and afebrile
- Patient met 2 of the 4 SIRS criteria which were leukocytosis with an increased WBC of 12.8 and a temperature of 101.8
- Differential diagnosis includes cystitis, pyelonephritis, UTI, prostatitis
-Urinalysis shows 3+ leukocyte esterase, 16-20 urine WBC, few urine bacteria this is a clean-catch sample as squamous cells are only 6-10
- urine and blood cultures negative, will DC antibiotics
-Will hold off on fluids as patient is able to tolerate p.o. intake, no active ongoing losses of fluid, no hypotension
Microscopic hematuria:
- Vitals are stable and patient is afebrile
- Urine analysis shows urine RBC of 40-50/high-power field, 4+ urine occult blood
- Differential diagnosis is kidney stones, radiation cystitis, ureteral stone, glomerulonephritis
- BUN/creatinine function is normal
- Renal u/s negative for any abnormalities
- Will add urology follow up on discharge
Right lower inguinal pain:
-Present on right inguinal area radiating down the inner part of thigh, not able to elicit via palpation which is his presenting complaint
- Differential diagnosis is inguinal/femoral hernia, muscle strain, urethral sphincter complication, DVT
- CT scan of abdomen/pelvis 2 mm calcification in the central pole of the right kidney, most likely nephrolithiasis, potential cystitis, small fat-containing hernia in the right paramedian abdominal wall which is stable, no diverticulitis, normal
appendix
- Scrotal ultrasound shows bilateral testicular microlithiasis which are usually asymptomatic
- Physical examination for inguinal hernia was negative
- Ordered both IV ketorolac and Tylenol for his pain
- U/S lower extremity negative for DVT
- Urology wants to consider alternate sources such as musculoskeletal or radiculopathy
- PT/OT states he has independent function and does not require OT. PT Will follow patient in house.
- Please follow up with PCP in 5 days for further evaluation of musculoskeletal pain.
- Provided script for ibuprofen 600 mg q8 into 5 days for the pain.
Prostate cancer:
- Continue with Zytiga and prednisone 5 mg as he takes it with Zytiga to prevent side effects
- Patient was diagnosed in [address] Davis at [facility]
- Every 6 months receives a hormonal shot to his left arm at [facility]
essential hypertension:
-Blood pressures 123/62 and stable
- Continue with lisinopril 40 mg and amlodipine 5 mg p.o. daily
Anticipated Discharge: Today
Subjective/Interval History
-
Date of Service: February 08, 2025
No overnight events
Patient's pain in right lower inguinal area is much better after we started him on IV ketorolac and Tylenol yesterday. He rates the pain as a 3 out of 10. Pain is still present on exertion and I will be less than before due to initiation of recent
pain medication.
Objective Data
-
Labs:
Laboratory Results
02/08/25
06:58
WBC 10.4
Hgb 11.9 L
Hct 35.8 L
Plt Count 183
Sodium 136
Potassium 3.9
Chloride 106
Carbon Dioxide 22
BUN 16
Creatinine 0.7
Glucose 106 H
Calcium 8.2 L
Total Bilirubin 1.0
AST 17
ALT 13
Alkaline Phosphatase 44
Vital Signs:
Vital Signs
Temp Pulse Resp BP Pulse Ox
98.8 F 67 18 123/62 96
02/08/25 07:00 02/08/25 07:00 02/08/25 07:00 02/08/25 08:13 02/08/25 07:00
I&O
02/07/25 02/08/25 02/09/25
06:59 06:59 06:59
Intake Total 480 / 480 1260 / 1260
Balance 480 / 480 1260 / 1260
Review of Systems
-
All other systems: Reviewed and negative
Constitutional: Denies Fever, Weight Loss, Fatigue, Night Sweats or Chills
Respiratory: Denies Cough, Hemoptysis or Trouble Breathing
Cardiac: Denies Chest Pain, Diaphoresis, Palpitations or Syncope
Abdomen/GI: Denies Abdominal Pain, Nausea, Vomiting or Diarrhea
Genitourinary: Reports Dark Urine; Denies Dysuria, Frequency, Flank Pain, Incontinence, Difficulty Voiding, Urgency or Bleeding
Musculoskeletal: Reports Muscle Pain (Right lower inguinal area)
Neuro: Denies Dizzy, Headache, Weakness, Numbness or Ataxia
Hematologic / Lymphatic: Denies Bleeding
Physical Exam
-
General: Well Developed, Well Nourished and No Apparent Distress
HEENT: Negative Oxygen
Respiratory: Clear to Auscultation
Cardiac: Regular Rhythm and S1/S2; Negative Murmur or Rub
GI: Soft, Nontender, Nondistended and Normal Bowel Sounds
Musculoskeletal: No Edema
Neuro: Awake, Alert, Oriented, No Motor Deficits and Nonfocal/Grossly Intact
Psych: Calm
[2025-02-08 15:27] VITALS: BP 133/73
--- NOTE | 2025-02-08 15:45 | W.DCSUMMARY ---
Addendum entered and electronically signed by Krys Mensah MD 02/08/25 19:33:
Read, reviewed, and agree. See same day progress note for additional details. Time spent coordinating care, DC planning, review of DC plan of care with resident, transition of care, review of records in EMR, med rec, consults, notes, d/w
consultants, nursing, family, and CM = 33 minutes
Original Note:
Discharge Summary
Discharge Data
Date of Admission: 02/06/25
Date of Discharge: 02/08/25
-
Pending Results: No
Hospital Course
Discharging Physician : Dr. Krys Mensah and Dr. Jose Ness
Disposition : Home
Primary care physician : Dr. Denis Simpson
Principal Discharge diagnosis : Sepsis due to unknown source, microscopic hematuria, right lower inguinal pain
Chronic Discharge diagnosis : Prostate cancer status postresection and XRT, essential hypertension, hyperlipidemia
Hospital Course : 74-year-old man presents to the ED with his at bedside with past medical history of prostate cancer, prostatectomy, urethral sphincter implant, hypertension, hyperlipidemia, hypothyroidism with sudden onset of severe sharp
localized pain in the right groin area and he met 2 of 4 SIRS criteria.
Problem #1: Sepsis due to unknown source
- Patient presents to ED on 02/06/2025. Patient met 2 of the 4 SIRS criteria, which were WBC of 12.8 and a sustained temperature of 101.8. Urine analysis showed 3+ leukocyte esterase, 16-20 urine WBC, few urine bacteria, this is a clean-catch
sample. Patient placed on IV empiric ceftriaxone. No fluids as patient is able to tolerate p.o. intake and has no active ongoing losses of fluid plus no hypotension. Urine and blood cultures negative, so then we discontinued empiric antibiotics.
On discharge patient does not have fever and vitals are stable. CT scan of the abdomen pelvis shows 2 mm calcification central pole of the right kidney, most likely nephrolithiasis, potential cystitis, small fat-containing hernia in the right
paramedian abdominal watch was stable, no diverticulitis, normal appendix. Follow-up CBC and CMP with PCP in 1 week. Follow-up urology in 1 week.
Problem #2: Microscopic hematuria
- Urinalysis shows urine RBC of 40-50 per high-power field, 4+ urine occult blood. Differential diagnoses kidney stones versus radiation cystitis versus ureteral stone versus glomerulonephritis. Renal ultrasound is negative for any abnormalities
and BUN/creatinine function is normal. Please follow-up with PCP in 1 week for further workup.
Problem #3: Right lower inguinal pain
-This is the patient's presenting complaint, it is present on the right inguinal area radiating down the inner part of the thigh not able to elicit via palpation. Scrotal ultrasound shows bilateral testicular microlithiasis which is usually
asymptomatic. Physical examination for inguinal hernia was negative. Patient was placed on IV ketorolac and Tylenol for his pain which helped. Ultrasound lower extremity negative for DVT. Urology wants to consider alternative sources such as a
musculoskeletal or radiculopathy. Patient was seen by physical therapy and Occupational Therapy. Discharge patient on 600 mg of ibuprofen Q8 hourly for 5 days to help suppress the pain until he is seen by PCP. Follow-up with PCP in 1 week to
further evaluate for musculoskeletal cause.
Problem #4: Prostate cancer status postresection and XRT
- Diagnosed with prostate cancer in 2008, continue with Zytiga and prednisone [address] follows [address] Arambula at [facility]. He receives hormonal shot to his left arm every 6 months at [facility].
Problem #5: Essential hypertension
-Blood pressure is 133/73 on discharge and stable. Continue with lisinopril 40 mg and amlodipine 5 mg p.o. daily.
Problem #6: Hyperlipidemia
-Continue home dose simvastatin 20 mg.
Important imaging findings :
Abdominal/pelvis CT: 02/06/2025
IMPRESSION:
2 mm calcification in the central upper pole the right kidney, which is likely a small nephrolith. No evidence for ureteral calculi bilaterally.
Status post prostatectomy with a penile prosthesis present.
Slight stranding of the fat anterior to the urinary bladder, and please correlate with any clinical signs or symptoms that would suggest cystitis.
Not mentioned above, there is a small fat-containing hernia in the right paramedian abdominal wall, located 5 cm superior to the umbilicus, stable.
Colonic diverticula with no CT evidence for diverticulitis. The appendix appears normal.
Bony degenerative changes as described.
Scrotum ultrasound 02/06/2025
FINDINGS:
RIGHT TESTICLE: The right testicle measures 3.2 x 1.7 x 1.8 cm in size. There are multiple small hyperechoic foci in the right testicle consistent with testicular microlithiasis. There is arterial and venous blood flow demonstrated within the right
testicle on color duplex evaluation and spectral duplex waveform analysis. The right epididymal head measures 8.4 x 5.6 x 6.2 mm in size. There is no right-sided hydrocele.
LEFT TESTICLE: The left testicle measures 2.7 x 1.4 x 2.0 cm in size. There are multiple tiny hyperechoic foci in the left testicle consistent with testicular microlithiasis. There is arterial and venous blood flow demonstrated within the left
testicle on color duplex evaluation and spectral duplex waveform analysis. The left epididymal head measures 6.1 x 5.2 x 7 mm in size. There is no left-sided hydrocele.
IMPRESSION:
BILATERAL TESTICULAR MICROLITHIASIS.
Peripheral vascular ultrasound 02/07/2025
IMPRESSION: No evidence of deep venous thrombosis of the right lower extremity.
Renal ultrasound 02/07/2025
FINDINGS: The right kidney measures 10.9 cm in length and the left kidney measures 12.3 cm in length. The bilateral kidneys show no signs of hydronephrosis, focal lesions, or calcifications. No perinephric collection is seen.
The urinary bladder virtually completely empty, patient voided just prior to obtaining this study. Bilateral ureteral jets are not seen.
IMPRESSION: Unremarkable sonographic appearance of the kidneys bilaterally.
Procedure findings :
Discharge Plan
-
Patient Disposition: Home (Routine Discharge)
Discharge Diagnosis/Procedures: sepsis due to unknown source, microscopic hematuria, right lower inguinal pain, prostate cancer status post resection and XRT, essential hypertension, hyperlipidemia
Condition: Fair
Diet: Low Cholesterol
Activity: As tolerated
Driving Restrictions: Not until seen by your Dr
Bathing Restrictions: None
Blood Work: CBC and CMP with PCP in 1 week
Referrals:
Mane Simpson MD [Family Provider, Family Practice] - in less than 1 week
Jos Almeida MD [Active, Urology] - in less than 1 week
Additional Discharge Medication Instructions: Take ibuprofen 600 mg (1 tablet) every 8 hours if needed. Please take medication with food.
Prescriptions:
New
ibuprofen 600 mg tablet
600 mg PO Q8H PRN (Reason: pain) 5 Days Qty: 15 0RF
Rx Instructions:
PLEASE TAKE MEDICATION WITH FOOD
Continued
levothyroxine 175 mcg tablet
175 mcg PO MOTUWETHFRSA@0600
prednisone 5 mg tablet
5 mg PO DAILY
simvastatin 20 mg tablet
20 mg PO QPM
lisinopril 40 mg tablet
40 mg PO DAILY
abiraterone [Zytiga] 250 mg Tablet
1,000 mg PO DAILY@0600
Rx Instructions:
must be taken on empty stomach, at least 1 hr before or 2 hrs after a meal/food. takes at 6am
amlodipine 5 mg tablet
5 mg PO DAILY
calcium carbonate-vitamin D3 600 mg-5 mcg (200 unit) Tablet
1 tab PO DAILY
Discharge Orders:
Discharge Patient (As Directed); Ordered 02/08/25
Ordered By: Jose Ness
Discharge Date and Time
Print Language: SERBIAN
--- NOTE | 2025-02-08 15:51 | CM ---
Patient seen at bedside with physicians on . Patient declined VN and competed IMM signed form placed on chart. CM will continue to follow for discharge planning needs.
Plan; home with family, no needs at this time.
== END 2025-02-08 15:47 | disposition home or self-care (01) | DRG 872 ==
LOC: 4 WEST ACU 17:45
PROVIDERS: ADMITTING PHYSICIAN Internal Medicine; CONSULT PHYSICIAN Urology; EMERGENCY PHYSICIAN Emergency Medicine; FAMILY PHYSICIAN Family Medicine
DX: A41.9 Sepsis, unspecified organism (principal); N39.0 Urinary tract infection, site not specified; I10 Essential (primary) hypertension; C61 Malignant neoplasm of prostate; E03.9 Hypothyroidism, unspecified; R10.31 Right lower quadrant pain; E66.9 Obesity, unspecified; N20.0 Calculus of kidney; R31.29 Other microscopic hematuria; Z11.52 Encounter for screening for COVID-19; Z68.31 Body mass index [BMI] 31.0-31.9, adult; Z79.890 Hormone replacement therapy; Z79.899 Other long term (current) drug therapy
CPT/HCPCS: 74176; 76770; 76870; 80053; 81003; 81015; 83036; 83605; 83735; 85025; 85610; 85730; 87040; 87086; 87502; 87811; 93971; 93976; 96361; 96374; 97162; 97165; 99285

== ENCOUNTER 2025-03-14 17:57 | Inpatient (IN) | payer OTHER, SELFPAY ==
[2025-03-14] VITALS (7 sets, daily range): BP systolic 133–160; BP diastolic 62–72; BMI 29.8
--- NOTE | 2025-03-14 13:45 | ED.GENMED ---
History of Present Illness
<Reyna Ramirez MD, Resident - Last Filed: 03/14/25 17:04>
General
Chief Complaint: Musculo-Skeletal Complaint
Source: patient
Time Seen by Provider: 03/14/25 13:19
History of Present Illness
History of Present Illness:
Patient is a 74-year-old male with past medical history significant for essential hypertension, hyperlipidemia, hypothyroidism, prostate cancer s/p prostatectomy with here with complaint of left knee pain and fever.
He was in his usual state of health, awakened at middle of night around 2 AM when he had sudden severe pain in his left knee. Denies any trauma, fall or injury to the knee. He does report he had been relying on his left knee while ambulating
because of pain in his right knee and back. He was not aware that he had fever until he came to the ER this morning due to difficulty in ambulation.
In the ER, he has a febrile 101.5 �F, he is tachycardic and is having rigors and chills. He fulfills 2 out of 4 criteria for SIRS.
He was recently discharged from hospital in January 2025 after being treated for fever of unknown origin.
Denies any chest pain, shortness of breath, abdominal pain, nausea, vomiting, dizziness, lightheadedness, near syncope or syncopal episode
Past History
<Reyna Ramirez MD, Resident - Last Filed: 03/14/25 17:04>
Past History
ED Past Medical History: Cancer, HTN and Hypercholesterolemia
ED Past Surgical History: Urological (prostatectomy)
Social History
Tobacco: Non-smoker
Alcohol: None
Drug: None
Personal:
Living: with family
Employment: Other
Family History
Family History: Other
Phy Exam
<Reyna Ramirez MD, Resident - Last Filed: 03/14/25 17:04>
General Physical Exam
General Presentation: moderate distress (Due to pain in the left knee and continues rigors/chills)
General age: appears stated age
General Skin: feels hot
General Habitus: normal
General Mental: alert
Cardiovascular Exam
Cardiovascular Exam: regular rate/rhythm, no edema, no murmur and normal peripheral pulses
Pulmonary Exam
Pulmonary Exam: lungs clear, no respiratory distress, no rales, no rhonchi and no wheezing
Gastrointestinal Exam
Gastrointestinal Exam: normal bowel sounds, non tender and soft
Neurological Exam
Neurological Exam: alert, oriented x3, no motor deficits and no sensory deficits
Musculoskeletal Exam
Musculoskeletal Exam: joint swelling (Left knee swelling with limited range of motion due to pain) and neuro vasc intact
Skin Exam
Skin Exam: normal color, warm/dry and no rash
Sepsis
<Reyna Ramirez MD, Resident - Last Filed: 03/14/25 17:04>
Sepsis Screening
Sepsis Assessment: Sepsis
Sepsis Screen
Sepsis Screen: Sepsis
Date: 03/14/25
Time: 17:02
<Linda Colón MD - Last Filed: 03/14/25 18:41>
Sepsis Screen
Sepsis Screen: Sepsis
Date: 03/14/25
Time: 18:40
Course
<Reyna Ramirez MD, Resident - Last Filed: 03/14/25 17:04>
Orders/Labs/Results
Orders:
Orders
03/14/25
CMP [Comprehensive Metabolic Panel] Urgent
Lactate Level [Lactic Acid] Urgent
03/14/25 13:23
CR Knee - Left 4 Or More View* Urgent
Comment:
Reason For Exam: pain, swelling
03/14/25 13:32
CBC/With Diff [Complete Blood Count/With Diff] Urgent
Erythrocyte Sed Rate Urgent
Comment: ADD ON
Urinalysis Reflex To Culture Urgent
Date Specimen was Collected: 03/14/25
Time Specimen was Collected: 14:19
03/14/25 13:46
Add On- LAB Urgent
Tests Added?: TSH REFLEX TO T4,CRP,ESR,VENICE
03/14/25 13:55
Ketorolac [Toradol] 30 mg IV NOW ONE
03/14/25 13:56
Acetaminophen [Tylenol] 1,000 mg PO NOW ONE
03/14/25 14:13
VENICE, IgG Reflex to HEp-2 [S] Urgent
Comment: ADD ON
C-Reactive Protein Urgent
Comment: ADD ON
TSH Reflex To Free T4 Urgent
Comment: ADD ON
Blood Culture Urgent
KATHLEEN Source: Blood/Venous
Specimen Description:
Date Specimen was Collected: 03/14/25
Time Specimen was Collected: 13:58
03/14/25 15:20
Oxycodone [Roxicodone] 5 mg PO NOW ONE
03/14/25 15:38
Blood Culture Urgent
KATHLEEN Source: Blood/Venous
Specimen Description:
Date Specimen was Collected: 03/14/25
Time Specimen was Collected: 15:35
03/14/25 16:17
Add On- LAB Urgent
Tests Added?: lyme titers,rheumatoid factor
03/14/25 17:08
Anaerobic Culture Routine
KATHLEEN Source: Joint Fluid
Specimen Description:
Date Specimen was Collected: 03/14/25
Time Specimen was Collected: 17:03
Comment: Cultures & Sensitivity
Fluid Culture with Gram Stain Routine
KATHLEEN Source: Joint Fluid
Specimen Description:
Date Specimen was Collected: 03/14/25
Time Specimen was Collected: 17:03
Comment: Cultures & Sensitivity
Fluid Culture with Gram Stain Urgent
KATHLEEN Source: Joint Fluid
Specimen Description:
Date Specimen was Collected: 03/14/25
Time Specimen was Collected: 17:03
03/14/25 17:16
Body Fluid Cell Count Urgent
What is the Body Fluid: joint
Date Specimen was Collected: 03/14/25
Time Specimen was Collected: 17:15
Comment: with DIFF
Lyme Progressive Urgent
Rheumatoid Agglutinin Urgent
Comment: ADD ON
03/14/25 17:26
Admit/Transfer Patient As Directed
Co-Sign Provider:
Level of Care: Inpatient admission
Assign to:: Telemetry
Physician / Group: elissa wayne
Diagnosis: sepsis
Reason for Telemetry: Arrhythmia
Date to Stop Telemetry: 03/17/25
Time to Stop Telemetry: 11:00
Reason for Hospitalization: sepsis
Expected length of stay greater than two midnights?: Yes
ELOS- Estimated Length of Stay in days: 3
I certify the patient meets the requirements for IP care: Yes
PRN Pain Medication Management As Directed
May give lesser potent ordered pain med per pt: Yes
preference::
Protocol:: Medication orders for pain may be administered in a
manner that supports deferring to patient preference
when the pt is:
- Requesting an ordered lesser potent pain medication.
Least to most potent pain medications are defined
as: acetaminophen < NSAID < tramadol < opioids
(morphine, oxycodone, hydromorphone).
- Requesting a lesser dose of the same medication IF
ORDERED.
- Requesting a less intrusive route of administration
if both routes are prescribed by the provider (PO <
IV).
03/14/25 17:27
Code Status As Directed
Resuscitation Status: Full Code
03/14/25 18:23
Body Fluid Crystals Urgent
What is the Body Fluid: joint
Date Specimen was Collected: 03/14/25
Time Specimen was Collected: 17:00
Comment: ADD ON
Body Fluid Glucose Urgent
Fluid Source: Other
Date Specimen was Collected: 03/14/25
Time Specimen was Collected: 17:00
Comment: ADD ON
03/17/25 11:00
DC Protocol for Telemetry ONCE
Abnormal Lab Results
03/14/25 03/14/25
13:32 14:13
WBC 14.4 H 10^3/uL
(4.8-10.8)
RBC 4.21 L 10^6/uL
(4.70-6.10)
Hgb 12.0 L g/dL
(13.0-18.0)
Hct 36.2 L %
(39.0-52.0)
Abs Immat Gran (auto) 0.1 H 10^3/uL
(0-0.05)
Absolute Neuts (auto) 13.0 H 10^3/uL
(1.4-6.5)
Absolute Lymphs (auto) 0.5 L 10^3/uL
(1.2-3.4)
Absolute Monos (auto) 0.8 H 10^3/uL
(0.1-0.6)
Neutrophils % 89.8 H %
(42.2-75.2)
Lymphocytes % 3.4 L %
(20.5-51.1)
ESR 76 H mm/hour
(0-20)
C-Reactive Protein 48.70 H mg/L
(0.0-10.00)
03/14/25 13:32
Vital Signs
Initial and Last Documented VS:
Initial Vital Signs
Temp Pulse Resp BP Pulse Ox
101.5 F H 92 17 160/72 98
03/14/25 12:54 03/14/25 12:54 03/14/25 12:54 03/14/25 12:54 03/14/25 12:54
Last Documented Vital Signs
Temp Pulse Resp BP Pulse Ox
98.4 F 100 15 147/68 95
03/14/25 17:18 03/14/25 14:45 03/14/25 14:45 03/14/25 14:00 03/14/25 14:45
<Linda Colón MD - Last Filed: 03/14/25 18:41>
Orders/Labs/Results
Orders:
Orders
03/14/25
CMP [Comprehensive Metabolic Panel] Urgent
Lactate Level [Lactic Acid] Urgent
03/14/25 13:23
CR Knee - Left 4 Or More View* Urgent
Comment:
Reason For Exam: pain, swelling
03/14/25 13:32
CBC/With Diff [Complete Blood Count/With Diff] Urgent
Erythrocyte Sed Rate Urgent
Comment: ADD ON
Urinalysis Reflex To Culture Urgent
Date Specimen was Collected: 03/14/25
Time Specimen was Collected: 14:19
03/14/25 13:46
Add On- LAB Urgent
Tests Added?: TSH REFLEX TO T4,CRP,ESR,VENICE
03/14/25 13:55
Ketorolac [Toradol] 30 mg IV NOW ONE
03/14/25 13:56
Acetaminophen [Tylenol] 1,000 mg PO NOW ONE
03/14/25 14:13
VENICE, IgG Reflex to HEp-2 [S] Urgent
Comment: ADD ON
C-Reactive Protein Urgent
Comment: ADD ON
TSH Reflex To Free T4 Urgent
Comment: ADD ON
Blood Culture Urgent
KATHLEEN Source: Blood/Venous
Specimen Description:
Date Specimen was Collected: 03/14/25
Time Specimen was Collected: 13:58
03/14/25 15:20
Oxycodone [Roxicodone] 5 mg PO NOW ONE
03/14/25 15:38
Blood Culture Urgent
KATHLEEN Source: Blood/Venous
Specimen Description:
Date Specimen was Collected: 03/14/25
Time Specimen was Collected: 15:35
03/14/25 16:17
Add On- LAB Urgent
Tests Added?: lyme titers,rheumatoid factor
03/14/25 17:08
Anaerobic Culture Routine
KATHLEEN Source: Joint Fluid
Specimen Description:
Date Specimen was Collected: 03/14/25
Time Specimen was Collected: 17:03
Comment: Cultures & Sensitivity
Fluid Culture with Gram Stain Routine
KATHLEEN Source: Joint Fluid
Specimen Description:
Date Specimen was Collected: 03/14/25
Time Specimen was Collected: 17:03
Comment: Cultures & Sensitivity
Fluid Culture with Gram Stain Urgent
KATHLEEN Source: Joint Fluid
Specimen Description:
Date Specimen was Collected: 03/14/25
Time Specimen was Collected: 17:03
03/14/25 17:16
Body Fluid Cell Count Urgent
What is the Body Fluid: joint
Date Specimen was Collected: 03/14/25
Time Specimen was Collected: 17:15
Comment: with DIFF
Lyme Progressive Urgent
Rheumatoid Agglutinin Urgent
Comment: ADD ON
03/14/25 17:26
Admit/Transfer Patient As Directed
Co-Sign Provider:
Level of Care: Inpatient admission
Assign to:: Telemetry
Physician / Group: elissa wayne
Diagnosis: sepsis
Reason for Telemetry: Arrhythmia
Date to Stop Telemetry: 03/17/25
Time to Stop Telemetry: 11:00
Reason for Hospitalization: sepsis
Expected length of stay greater than two midnights?: Yes
ELOS- Estimated Length of Stay in days: 3
I certify the patient meets the requirements for IP care: Yes
PRN Pain Medication Management As Directed
May give lesser potent ordered pain med per pt: Yes
preference::
Protocol:: Medication orders for pain may be administered in a
manner that supports deferring to patient preference
when the pt is:
- Requesting an ordered lesser potent pain medication.
Least to most potent pain medications are defined
as: acetaminophen < NSAID < tramadol < opioids
(morphine, oxycodone, hydromorphone).
- Requesting a lesser dose of the same medication IF
ORDERED.
- Requesting a less intrusive route of administration
if both routes are prescribed by the provider (PO <
IV).
03/14/25 17:27
Code Status As Directed
Resuscitation Status: Full Code
03/14/25 18:23
Body Fluid Crystals Urgent
What is the Body Fluid: joint
Date Specimen was Collected: 03/14/25
Time Specimen was Collected: 17:00
Comment: ADD ON
Body Fluid Glucose Urgent
Fluid Source: Other
Date Specimen was Collected: 03/14/25
Time Specimen was Collected: 17:00
Comment: ADD ON
03/17/25 11:00
DC Protocol for Telemetry ONCE
Abnormal Lab Results
03/14/25 03/14/25
13:32 14:13
WBC 14.4 H 10^3/uL
(4.8-10.8)
RBC 4.21 L 10^6/uL
(4.70-6.10)
Hgb 12.0 L g/dL
(13.0-18.0)
Hct 36.2 L %
(39.0-52.0)
Abs Immat Gran (auto) 0.1 H 10^3/uL
(0-0.05)
Absolute Neuts (auto) 13.0 H 10^3/uL
(1.4-6.5)
Absolute Lymphs (auto) 0.5 L 10^3/uL
(1.2-3.4)
Absolute Monos (auto) 0.8 H 10^3/uL
(0.1-0.6)
Neutrophils % 89.8 H %
(42.2-75.2)
Lymphocytes % 3.4 L %
(20.5-51.1)
ESR 76 H mm/hour
(0-20)
C-Reactive Protein 48.70 H mg/L
(0.0-10.00)
03/14/25 13:32
Vital Signs
Initial and Last Documented VS:
Initial Vital Signs
Temp Pulse Resp BP Pulse Ox
101.5 F H 92 17 160/72 98
03/14/25 12:54 03/14/25 12:54 03/14/25 12:54 03/14/25 12:54 03/14/25 12:54
Last Documented Vital Signs
Temp Pulse Resp BP Pulse Ox
98.4 F 100 15 147/68 95
03/14/25 17:18 03/14/25 14:45 03/14/25 14:45 03/14/25 14:00 03/14/25 14:45
<Reyna Ramirez MD, Resident - Last Filed: 03/14/25 17:04>
MDM/Problems Addressed
Differential Diagnosis Includes:
Fever of unknown origin
Possible septic arthritis
COVID/flu
UTI
MDM/Problems Addressed:
On labs review, mild leukocytosis, mild hyperbilirubinemia, ESR and CRP elevated
Joint fluid sent for complete analysis including Gram stain, aerobic and anaerobic culture and sensitivity
Talk to orthopedics and ordered rheumatoid factor and Lyme titers along with VENICE
Orthopedics recommends holding off MRI for now
Would admit for further evaluation
<Reyna Ramirez MD, Resident - Last Filed: 03/14/25 17:04>
*Pulse Oximetry
SaO2: 98
Oxygen Mode of Delivery: Room air
Patient hypoxic: no
*Critical Care Note
Total Time (30-74mins, 75-104mins- exclusive of procedures): Not Applicable
ED Attending Note
<Reyna Ramirez MD, Resident - Last Filed: 03/14/25 17:04>
-
Portions of this chart may have been created with voice recognition software.� Occasional wrong word or��sound alike� substitutions may have occurred due to the inherent limitations of voice recognition software.
<Linda Colón MD - Last Filed: 03/14/25 18:41>
ED Attending Note
Patient seen and examined by attending physician: Yes
I performed a history and physical exam of patient and discussed management with resident, I reviewed resident's note and agree with documented findings and plan of care.: Yes
ED Attending Note:
I have seen and evaluated the patient with a [id number] encounter. I have spoken to the [resident] and involved in the medical history, the physical exam, medical decision making.
Evaluation and management service: agree unless noted differently below.
Results interpretation: agree unless noted differently below.
74-year-old man presenting to the emergency department with knee pain. Per chart review patient was admitted recently for sepsis of unknown origin. He was discharged on antibiotics. Patient came in today for left-sided knee pain that started this
morning. He states that he has been overcompensating given the pain on his right side so he felt a tweak. He did have chills right before arrival. However did not have any fevers prior to arrival. Denies any numbness tingling. No weakness. He
is not on blood thinners. During my evaluation and comfortably. He does have tenderness palpation at the left knee with mild swelling laterally. Limited range of motion secondary to pain. No redness. Upon arrival here patient is febrile. Blood
work does show leukocytosis. Will obtain x-ray of the knee. Given the fever and knee pain could be septic arthritis though patient with minimal swelling. No redness. Will attempt arthrocentesis. Anticipate admission for further evaluation and
possible Ortho consult as well/further imaging of the knee. Other sources considered though less likely could be respiratory infection versus UTI. Abdomen soft nondistended nontender. Will send blood cultures as well
Initially patient reluctant for knee joint aspiration. However after a lengthy discussion patient is amenable. Knee joint aspiration completed with a lateral approach. Will send off for analysis. Initially thick yellow fluid drained that turned
serousanguinous. No additional thick or purulent fluid drained. Discussed with hospitalist accepted patient to their service pending result of synovial fluid analysis.
Discharge Plan
Departure
Patient Disposition: Admit
Date of Disposition: 03/14/25
Time of Disposition: 17:05
Presentation/result/management discussed w/ accepting MD/DO: Hospitalist
Patient with high blood pressure during this ER visit?: No
Condition: Fair
Discharge Problem:
Sepsis, Left knee pain, Effusion of knee joint, left
Interventions
Interventions:
*Risk Screen - Suicide Last Done: 03/14/25 12:54
*General Assessment Last Done: 03/14/25 12:54
*Neglect/Abuse Screening Last Done: 03/14/25 12:54
ED-Musculoskeletal Assessment Last Done: 03/14/25 13:49
[2025-03-14] MEDS: TYLENOL 1000 MG PO (14:01)
[2025-03-14] MEDS: TORADOL 30 MG IV (14:02)
[2025-03-14 14:09] LABS: Hematocrit 36.2 % (39.0-52.0); Hemoglobin 12.0 g/dL (13.0-18.0); Mean Corp Hgb Conc. 33.1 g/dL (33.0-37.0); Mean Corpuscular Volume 86.0 fL (80.0-94.0); Nucleated Red Blood Cells % 0 % (-); Platelet Count 361 10^3/uL (130-400); Red Cell Dist. Width 12.9 % (11.5-14.5)
[2025-03-14 14:12] LABS: ALT (SGPT) 12 U/L (0-50); AST (SGOT) 15 U/L (17-59); Albumin 4.1 g/dl (3.5-5.0); Alkaline Phosphatase 73 U/L (38-126); Blood Urea Nitrogen 22 mg/dl (9-20); Calcium 9.2 mg/dl (8.4-10.2); Carbon Dioxide 24 mmol/L (22-30); Chloride 104 mmol/L (98-107); Estimated Creatinine Clearance 88 ml/min; Glucose 182 mg/dl (70-99); Potassium 4.0 mmol/L (3.5-5.1); Sodium 137 mmol/L (135-145); Total Protein 7.8 g/dl (6.3-8.2); eGFR > 60.00
[2025-03-14 14:30] LABS: C-Reactive Protein 48.70 mg/L (0.0-10.00)
[2025-03-14] MEDS: ROXICODONE 5 MG PO ×2 (15:44→22:15)
--- NOTE | 2025-03-14 17:08 | HPS.HSE ---
Family Physician
-
Family Physician: Mane Simpson
Chief Complaint
-
left knee pain
History of Present Illness
74-year-old male with past medical history significant for essential hypertension, hyperlipidemia, hypothyroidism, prostate cancer s/p prostatectomy with here with complaint of left knee pain since last night. patient got up to use the bathroom and
not sure if he twisted the knee, since then he he is having left knee pain. patient puts extra pressure on left LE due to right hip and right LE pain. denied fever, chills, cough, congestion, runny nose at home. denied chest pain, sob. denied
abdominal pain,n,v,d. denied dysuria or hematuria.
In the ER, he has a febrile 101.5 �F, he is tachycardic and is having rigors and chills.
Admitting for further management
Medical History
Past Medical History
Past Medical History: Reports Other
Additional Past Medical History:
Prostate cancer, hypertension, hypothyroidism, hyperlipidemia
Past Surgical History: Reports Other
Additional Past Surgical History:
Prostatectomy, urethral sphincter implant, prostate sling
Social History
Alcohol: Occasional
Drug: None
Family History
Family History: Not pertinent
Allergies / Home Medications
Allergies reflects when Allergies were last updated in [employer].
Home Medications with original date entered in [employer]
Allergy/Medication List:
Allergies
Allergy/AdvReac Type Severity Reaction Status Date / Time
No Known Allergies Allergy Verified 06/08/24 17:16
Home Medications
abiraterone 250 mg tablet (Zytiga) 1,000 mg PO DAILY@0601/03/23
levothyroxine 175 mcg tablet 175 mcg PO MOTUWETHFRSA@0600 01/03/23
lisinopril 40 mg tablet 40 mg PO DAILY 01/03/23
prednisone 5 mg tablet 5 mg PO DAILY 01/03/23
simvastatin 20 mg tablet 20 mg PO QPM 01/03/23
amlodipine 5 mg tablet 5 mg PO DAILY 02/06/25
calcium 600 mg (as carbonate)-vitamin D3 5 mcg (200 unit) tablet 1 tab PO DAILY 02/06/25
ibuprofen 600 mg tablet 600 mg PO Q8H PRN pain 5 days #15 tabs 02/08/25
Review of Systems
-
Constitutional: Reports No Symptoms
EENT: Reports No Symptoms
Respiratory: Reports No Symptoms
Cardiac: Reports No Symptoms
Abdomen/GI: Reports No Symptoms
: Reports No Symptoms
Musculoskeletal: Reports Other (Left knee pain)
Skin: Reports No Symptoms
Neurological: Reports No Symptoms
Endocrine: Reports No Symptoms
Hematologic/Lymphatic: Reports No Symptoms
Psych: Reports No Symptoms
Physical Exam
Vital Signs
Vital Signs
Temp Pulse Resp BP Pulse Ox
101.5 F H 100 15 147/68 95
03/14/25 12:54 03/14/25 14:45 03/14/25 14:45 03/14/25 14:00 03/14/25 14:45
Physical Exam
General: Well Developed, Well Nourished and No Apparent Distress
HEENT: NormoCephalic, Moist mucous membranes and Atraumatic
Respiratory: Clear
Cardiac: S1/S2 and Regular Rhythm; No Murmur or Rub
GI: Soft, Non Tender, Non Distended and Normal Bowel Sounds; No Organomegaly
Rectal: Deferred by Provider
Musculoskeletal: No Clubbing, No Cyanosis and No Edema
Skin: No Rash
Neuro: AO x 3 and Nonfocal/grossly intact
Psych: Calm
Laboratory Results
-
03/14/25 13:32
03/14/25 Unknown
Laboratory Results
Lactic Acid 1.4 mmol/L (0.7-2.0) 03/14/25 Unknown
Total Bilirubin 1.4 mg/dl (0.2-1.3) H 03/14/25 Unknown
AST 15 U/L (17-59) L 03/14/25 Unknown
ALT 12 U/L (0-50) 03/14/25 Unknown
Alkaline Phosphatase 73 U/L (38-126) 03/14/25 Unknown
Data Reviewed
-
Diagnostic Radiology: Report Reviewed by me
Lab Data: Labs Reviewed by me
Impression/Plan
-
# Sepsis secondary to joint effusion
- knee with impression of Large suprapatellar joint effusion.Mild to moderate tricompartmental osteoarthritis, most pronounced within the medial tibiofemoral laith
- Arthrocentesis in the ER
- Fluid sent for analysis
- Lyme pending
- Blood culture sent from ER
-iv ancef
-orthopedics consulted
#Prostate cancer--s/p resection and XRT--Continue with Zytiga and prednisone 5 mg as he takes it with Zytiga to prevent side effects- Every 6 months receives a hormonal shot to his left arm at [facility]
#essential hypertension-- Continue with lisinopril 40 mg and amlodipine 5 mg p.o. daily
#Hyperlipidemia- Continue simvastatin
#DVT prophy-- Lovenox
#code status--Full code
--- NOTE | 2025-03-14 17:45 | EDCM ---
Reviewed chart and met with pt bedside in ED. Lives with his in [address], [address].
Independent in ADLs, personal care and ambulation at baseline. Has been using [facility] since last admission in January.
Confirms prescription coverage.
No hx VN or SNF
PCP: Mane Simpson
Pharmacy: [facility]
Anticipate discharge home, CM will continue to follow for any discharge planning needs.
--- NOTE | 2025-03-14 17:50 | W.PN.UPDATE ---
Update Note
Progress Note Update
This note serves as an addendum to the H&P by street light lamp cleaner SUKHWINDER�
HPI
74M
PMHX: pHTN, HLD, hypothyroidism, CA prostate s/p prostatectomy
- L knee pain since last night uncertain if he twisted the knee last night when he went for BR
- puts more wt. pressure on left LE due to right hip and right LE pain
- denied fever, chills, cough, congestion, runny nose at home.
ROS
+ rigors and chills.
@ ER
Febrile 101.5 �F, tachycardic
Relevant VS
Vital Signs
Temp Pulse Resp BP Pulse Ox
98.4 F 100 15 147/68 95
03/14/25 17:18 03/14/25 14:45 03/14/25 14:45 03/14/25 14:00 03/14/25 14:45
Selected Entries
03/14/25
12:54 03/14/25
17:18
Temp 101.5 F H 98.4 F
PE
Gen:No Apparent Distress, not toxic
Lungs:CTA
Cor:S1/S2 and Regular Rhythm
Abdo ; benign
MS: Lt suprapatellar knee swelling , able to do 15-20 degree flexion , no exquisite tenderness and felt tight
Psych: Nl drew and affect
Relevant Data
03/14/25 03/14/25 03/14/25
13:32 14:13 Unknown
WBC 14.4 H
Hgb 12.0 L
Creatinine 0.8
eGFR > 60.00
Lactic Acid 1.4
Total Bilirubin 1.4 H
AST 15 L
ALT 12
C-Reactive Protein 48.70 H
L Knee XR
- No fracture or dislocation appreciated.
- Large suprapatellar joint effusion.
- Mild to moderate tricompartmental osteoarthritis, most pronounced within the medial tibiofemoral joint space.
Last hospitalist admission: 01/03/23 - 01/05/23
Principal Discharge diagnosis :
Severity marcescens urinary tract infection
Sepsis
Right lung pulmonary nodule
ASSESSMENT & PLAN
Sepsis likely source is Lt Knee Joint - extra articular like suprapatellar bursitis vs septic Joint
- POS XR large suprapatellar joint effusion.
- S/P Arthrocentesis in the ER : Fluid sent for analysis
- Empiric IV Ancef
- Lyme pending
- Pending BCX
- Ortho consulted
CA Prostate c
- s/p resection and XRT
- on OPHTHALMIC SURGEON Zytiga and prednisone 5 mg as he takes it with Zytiga to prevent side effects
- Every 6 months receives a hormonal shot to his left arm at [facility]
pHTN
- on lisinopril 40 mg and amlodipine 5 mg p.o. daily
HLD
- simvastatin
DVT Px: LMWH
Full code
IP MS
[2025-03-14 18:38] LABS: Body Fluid Granulocytes 92 %
[2025-03-14 18:50] LABS: COVID-19 Antigen Negative (Negative)
[2025-03-14 20:23] LABS: Urine Character Cloudy (Clear)
[2025-03-14 20:29] LABS: Urine Squamous Cell 0-2 /LPF (Few)
[2025-03-14 20:31] LABS: Urine White Cell 50-60 /HPF (0-5)
--- NOTE | 2025-03-14 21:45 | PTCARENOTE ---
Received patient from ED via stretcher at 2030. Patient pulled over from stretcher to bed. Reports 10/10 left knee pain. SAWYER HELPER made aware, orders added for PRN sheeba. Oriented patient to room and call crawford placed within reach.
[2025-03-14] MEDS: ANCEF 10 IV (22:12)
[2025-03-14] MEDS: LIPITOR 10 MG PO (22:12)
[2025-03-14] MEDS: LOVENOX 40 MG SC (22:13)
[2025-03-14] MEDS: TYLENOL 650 MG PO (23:55)
[2025-03-15] VITALS (8 sets, daily range): BP systolic 130–157; BP diastolic 63–75; PULSE 94–96; O2SAT 95–96
[2025-03-15] MEDS: SYNTHROID 175 MCG PO (05:56)
[2025-03-15] MEDS: NON-FORMULARY ITEM 1000 MG PO (06:02)
[2025-03-15] MEDS: ANCEF 10 IV ×3 (06:02→22:01)
[2025-03-15] MEDS: ROXICODONE 5 MG PO (06:10)
[2025-03-15 07:30] LABS: Hematocrit 32.3 % (39.0-52.0); Hemoglobin 10.8 g/dL (13.0-18.0); Mean Corp Hgb Conc. 33.4 g/dL (33.0-37.0); Mean Corpuscular Volume 85.7 fL (80.0-94.0); Platelet Count 325 10^3/uL (130-400); Red Cell Dist. Width 12.9 % (11.5-14.5)
--- NOTE | 2025-03-15 08:04 | W.PN.UPDATE ---
Update Note
Progress Note Update
Patient seen on AM rounds. Full consult note to follow. Overall, I am not overly concerned for a septic left knee. In my opinion, the arthritis present in his left knee is more moderate to severe than mild, most notably in the medial compartment.
Culture of knee aspirate is pending, but I believe he is likely experiencing a flare of his underlying OA. Would recommend continued pain control while admitted and recommend PT/OT. He follows with Dr. Jackson at [facility] for his right hip, so as long
as cultures are negative, I would recommend outpatient follow up for continued management. Will continue to follow cultures.
[2025-03-15 08:17] LABS: Blood Urea Nitrogen 25 mg/dl (9-20); Calcium 8.6 mg/dl (8.4-10.2); Carbon Dioxide 24 mmol/L (22-30); Chloride 107 mmol/L (98-107); Estimated Creatinine Clearance 100 ml/min; Glucose 96 mg/dl (70-99); Potassium 3.6 mmol/L (3.5-5.1); Sodium 139 mmol/L (135-145); eGFR > 60.00
[2025-03-15 08:47] LABS: Reticulocyte Count 1.4 % (0.4-2.8)
[2025-03-15] MEDS: ZESTRIL 40 MG PO (09:02)
[2025-03-15] MEDS: NORVASC 5 MG PO (09:02)
[2025-03-15] MEDS: DELTASONE 5 MG PO (09:02)
[2025-03-15] MEDS: OSCAL 500 + D 500 MG PO (09:02)
--- NOTE | 2025-03-15 09:10 | W.PN.HOSP.TC ---
Addendum entered and electronically signed by Catarino Kenney MD 03/15/25 16:07:
Resection in 2008, sling for incontinence at 2010, same year it got loose and replaced, same year it cut into urethra and removed. Then implantation of AMS 800 for urinary incontinence 2016
Original Note:
Today's Communication/Plan
-
see PN
Assessment / Plan
Assessment / Plan
74yo M with PMHx of Prostate CA on Zytiga, adrenal insufficiency 2/2 chemo on Prednisone, Hypothyroidism, HTN, HLD came with acute onset of L knee pain, found large suprapatellar effusion in ED that was tapped and fluid showed abudant clotting so
WBC could not be calculated. Also febrile with elevated WBC count on admission so started on Ancef for septic arthritis, however Orthopedics consider it less likely, since patient recently increased weight baring on LLE due to R hip problems.
Followed in the [facility].
A/P:
#L knee acute monoarthritis, concern for septic vs non-inflammatory 2/2 OA
Concern for immunocompromized patient with Hx of CA and chronic Prednisone
Ortho followed: advised to await for cultures
Bcx and joint fluid Cx pending and NTD
ID consult
#Asymptomatic bacteriuria
no urinary symptoms reported
follow Ucx
#Prostate CA
#Urinary strictures on self-cath
#Iatrogenic adrenal insufficiency
#Hypothyroidism
#HLD
#Essential HTN
PAtient requesting Zytiga with Synthroid strictly at 6:30am and the rest of meds at 8am with food.
COnt home meds
watch for retention
cont straight cath as needed
DVT ppx lovenox
FUll code
I have spent at least 58min reviewing chart, test results, communication with consultants and providing direct patient care
Anticipated Discharge: > 48 hours
Subjective/Interval History
-
Date of Service: March 15, 2025
Objective Data
-
Labs:
Laboratory Results
03/15/25
06:11
WBC 9.1
Hgb 10.8 L
Hct 32.3 L
Plt Count 325
Sodium 139
Potassium 3.6
Chloride 107
Carbon Dioxide 24
BUN 25 H
Creatinine 0.7
Glucose 96
Calcium 8.6
Total Bilirubin Pending
AST Pending
ALT Pending
Alkaline Phosphatase Pending
Vital Signs:
Vital Signs
Temp Pulse Resp BP Pulse Ox
98.8 F 79 20 130/67 95
03/15/25 03:28 03/15/25 03:28 03/15/25 03:28 03/15/25 03:28 03/15/25 03:28
I&O
03/14/25 03/15/25 03/16/25
06:59 06:59 06:59
Intake Total 480 / 480
Output Total 200 / 200
Balance 280 / 280
Review of Systems
-
History Source: Patient
All other systems: Reviewed and negative
Musculoskeletal: Reports Joint Pain (L knee)
Physical Exam
-
General: No Apparent Distress
HEENT: Normocephalic
Respiratory: Clear to Auscultation
Cardiac: Regular Rhythm
Musculoskeletal: Other (L knee swelling and mild redness)
Neuro: Awake, Alert, Oriented and AO x 3
Psych: Calm
[2025-03-15 09:11] LABS: ALT (SGPT) 10 U/L (0-50); AST (SGOT) 13 U/L (17-59); Albumin 3.3 g/dl (3.5-5.0); Alkaline Phosphatase 62 U/L (38-126); LDH 175 U/L (120-246); Total Protein 6.9 g/dl (6.3-8.2)
--- NOTE | 2025-03-15 09:37 | CON.ORTHO ---
Consultation - Orthopedics
History
Mr. Prasad is a 74 year old male with PMH of essential hypertension, hyperlipidemia, hypothyroidism, prostate cancer s/p prostatectomy. He is seen today for evaluation of his left knee. He denies any falls or specific injuries, but reports he may
have twisted his knee when he was getting up to use the bathroom yesterday morning. He reports onset of severe pain and swelling about the left knee. He reports his symptoms are exacerbated with weight bearing to his left lower extremity. He denies
mechanical symptoms or instability. He is currently under the care of Dr. Blackman at [facility] for his right hip, but denies any issues with his left knee in the past. He denies PMH of gout. He is on daily prednsione and Zytiga for treatment of his
prostate cancer. He denies any fever/chills, respiratory or GI/ symptoms prior to presentation in the ED, but he was febrile to 101.5 with chills while in the ED. He reports he is feeling well this morning.
Allergies / Home Medications
Allergy/AdvReac Type Severity Reaction Status Date / Time
No Known Allergies Allergy Verified 06/08/24 17:16
�Medication �Instructions �Recorded
abiraterone 250 mg tablet (Zytiga) 1,000 mg PO DAILY@0600 Antiandrogen 01/03/23
levothyroxine 175 mcg tablet 175 mcg PO MOTUWETHFRSA@0600 01/03/23
Thyroid
lisinopril 40 mg tablet 40 mg PO DAILY Blood Pressure 01/03/23
prednisone 5 mg tablet 5 mg PO DAILY INFLAMMATION 01/03/23
simvastatin 20 mg tablet 20 mg PO QPM High Cholesterol 01/03/23
amlodipine 5 mg tablet 5 mg PO DAILY Blood Pressure 02/06/25
calcium 600 mg (as 1 tab PO DAILY Supplement 02/06/25
carbonate)-vitamin D3 5 mcg (200
unit) tablet
Vital Signs / Lab Results
Temp Pulse Resp BP Pulse Ox
98.8 F 79 20 130/67 95
03/15/25 03:28 03/15/25 03:28 03/15/25 03:28 03/15/25 03:28 03/15/25 03:28
03/15/25 06:11
03/15/25 06:11
XR of the left knee independently interpreted by me reveal moderate to severe medial compartment narrowing with periarticular spurring.
Aspirate negative for crystals, Gram stain without WBC or organisms. Culture pending.
Blood culture pending.
Urine culture pending.
Negative for Covid and flu.
Directed exam of the left knee reveals positive effusion. No erythema, ecchymosis or lesions. No significant tenderness to palpation throughout the knee. ROM 0-90, limited secondary to patient pain. Stable to varus and valgus stress. Neurovascularly
intact distally.
Assessment / Plan
Left knee pain and effusion
--Demond has experienced one day of severe left knee pain and swelling without any specific known injury. I am not overly concerned for a septic left knee joint at this time. He does have moderate to severe medial joint space narrowing and I suspect
he is dealing with a flare of his underlying arthritis. That being said, his knee cultures are pending, so we will await the results from this culture.
--He may be weight bearing as tolerated with an assistive device. He would likely benefit from PT/OT while admitted.
--Pain control prn. Ice for edema control.
--If cultures are negative, would recommend outpatient follow up for continued management moving forward.
[2025-03-15] MEDS: SENOKOT-S 1 TABLET PO (13:03)
[2025-03-15] MEDS: TYLENOL 650 MG PO ×2 (13:03→22:12)
--- NOTE | 2025-03-15 13:41 | W.PN.UPDATE ---
Update Note
Progress Note Update
Agree with orthopedic PA note. Patient appears to have had a twisting injury to the left knee that cause pain and effusion. Coincidentally patient has fever of unknown origin of which they had Worked up in the past. He is being seen by Caity
for his right hip musculoskeletal injury that he was being seen for 5 weeks ago. was at bedside.
Left knee: Mild to moderate effusion. Tenderness to palpation. Neurovascularly intact.
X-rays performed yesterday AP/lateral/oblique of the left knee shows no acute fractures, dislocations or lesions. Mild to moderate DJD.
Cultures show no organisms over 24 hours from the left knee aspirate performed in ER
Impression left knee pain, DJD, effusion likely due to injury rather than septic joint.
Plan: I ordered patient in knee immobilizer for comfort. Patient may weight-bear to tolerance with a walker. Will obtain MRI as an outpatient. Hospitalist and/Or infectious disease will Work on source of his fever.
--- NOTE | 2025-03-15 15:27 | W.PN.UPDATE ---
Update Note
Progress Note Update
Just received a phone call from Dr. Blackman from [facility] orthopedics who was evaluating and treating his right hip pain that started 5 weeks ago. An MRI was performed at [facility] Of his pelvis which showed a fluid collection likely related to his
prostate surgery that was done by Beka Arambula at [facility] and symphysis pubis osteomyelitis. This was a stat reading that Dr. Blackman just received from the radiologist. Dr. Jackson had recommended urology consult and infectious
disease consult for treatment of this likely source of his fever. I spoke with his hospitalist, Dr. Kenney, regarding these recommendations
--- NOTE | 2025-03-15 15:34 | W.PN.UPDATE ---
Update Note
Progress Note Update
Additional information obtained by Ortho from [facility], where patient was followed for his R hip pain. Recent MRI showed OM of pubic symphisis and associated pelvic collection, possibly related to the prostate Sx that was previously doen by
Tyesha in [facility]. Most liekly it is a source of infection. CT scan reasonable for fluid collection. Will consult Urology as per suggestion from Ortho. Request info for MRI reading from [facility]
[2025-03-15] MEDS: OMNIPAQUE 50 ML PO (15:55)
[2025-03-15] MEDS: LIPITOR 10 MG PO (17:49)
[2025-03-15] MEDS: LOVENOX 40 MG SC (17:49)
[2025-03-16 03:00] VITALS: BP 131/65
[2025-03-16] MEDS: NON-FORMULARY ITEM 1000 MG PO (06:30)
[2025-03-16] MEDS: ANCEF 10 IV (06:30)
[2025-03-16] MEDS: SYNTHROID 175 MCG PO (06:30)
--- NOTE | 2025-03-16 07:51 | CON.ID ---
Consultation
-
Date/Time Consultation Requested: March 15, 202518
Date/Time Consultation Performed: March 16, 2025 1404
Requesting Provider: Dr. Catarino Kenney
Performing Provider: Dr. Eugenia Gilbert
Reason for Consultation: Pelvic osteomyelitis
Chief Complaint / Past History
Chief Complaint
Left knee pain
History of Present Illness
74-year-old male with history of hypertension, prostate cancer status post prostatectomy, XRT, history of urethral implant 2011 who presented to the hospital March 14 with acute left knee pain and swelling. Patient has been having approximately
5-week history of right groin pain/difficulty with ambulation for which he was recently hospitalized February 06�Oct with fever, right inguinal pain -negative blood cultures, CT abdomen pelvis without contrast -no source of fever, seen by
urology and deemed not source of fever/right groin pain. He was discharged to home. He had follow-up with orthopedic who ordered MRI. In the meantime patient reports his right groin pain was improving. However he then developed acute left
knee pain due to overuse and overcompensating for the right leg pain. On March 14, temperature 101.5. Knee x-ray showed large joint effusion. The knee was tapped but fluid was clotted, no crystals, culture negative to date. His outside
orthopedic received the MRI result yesterday which reportedly showed fluid collection and symphysis pubis osteomyelitis. CT of the pelvis with contrast here showed two rim-enhancing fluid collections in the right adductor musculature measuring up
to 3.5 cm and 1.8 cm, most compatible with intramuscular abscesses. Osseous destructive changes centered at the symphysis pubis. Blood cultures negative. He is currently on cefazolin. Patient denies history of trauma or falls. No frequent UTIs.
Denies injuring the bladder during self catheterization.
Past History
Additional Past Medical History:
Hypertension
Hypothyroidism
prostate cancer status post prostatectomy and radiation 2007, with elevated PSA 3 years ago currently on Zytiga/low-dose prednisone
History of urethral implant/prostate sling procedure 2011
Urethral stricture requiring self catheterization twice a week for urethral dilation
Allergy History:
No Known Allergies Allergy (Verified 06/08/24 17:16)
Medications Reviewed: Yes
Current Antibiotics:
Cefazolin
Social History
Tobacco: Non-Smoker
Alcohol: None
Drug: None
Personal:
Family History
Family History: Not Pertinent
Review of Systems
Review of Systems
General: Chills; Negative Change in Appetite
HEENT: Negative Sinus Problems or Headache
Cardiovascular: Negative Chest Pain or Edema
Respiratory: Negative Dyspnea
Gasteroenterology: Negative Nausea, Vomiting or Diarrhea
Genital / Urological: Negative Dysuria or Flank Pain
Musculoskeletal: Joint Pain
Skin / Hair / Nails: Negative Rash
Vital Signs
Temp Pulse Resp BP Pulse Ox
99.4 F 80 16 131/65 96
03/16/25 03:00 03/16/25 03:00 03/16/25 03:00 03/16/25 03:00 03/16/25 03:00
Physical Exam
Physical Exam
Constitutional: No Acute Distress and Comfortable
Eyes: No Conjunctival Hemorrhage
Cardiovascular: Regular Rate and S1/S2
Pulmonary: Clear
Gastrointestinal: Soft, Non Tender, Non Distended and Normal Bowel Sounds
Genito-Urinary: Negative CVA Tenderness
Extremities: Edema (LLE)
Musculoskeletal: Joint Effusion (L knee) and Other (Right inguinal: no erythema/induration)
Neurological: AO x 3
Lab / Diagnostic Study Results
Abs Immat Gran (auto) 0.1 10^3/uL (0-0.05) H 03/14/25 13:32
Absolute Neuts (auto) 13.0 10^3/uL (1.4-6.5) H 03/14/25 13:32
Absolute Lymphs (auto) 0.5 10^3/uL (1.2-3.4) L 03/14/25 13:32
Absolute Monos (auto) 0.8 10^3/uL (0.1-0.6) H 03/14/25 13:32
Absolute Basos (auto) 0.1 10^3/uL (0-0.2) 03/14/25 13:32
Immature Gran % 0.4 % (0-0.5) 03/14/25 13:32
Neutrophils % 89.8 % (42.2-75.2) H 03/14/25 13:32
Lymphocytes % 3.4 % (20.5-51.1) L 03/14/25 13:32
Monocytes % 5.8 % (1.7-9.3) 03/14/25 13:32
Eosinophils % 0.1 % (0-6) 03/14/25 13:32
Basophils % 0.5 % (0-2) 03/14/25 13:32
ESR 76 mm/hour (0-20) H 03/14/25 13:32
Lactic Acid 1.4 mmol/L (0.7-2.0) 03/14/25 Unknown
C-Reactive Protein 48.70 mg/L (0.0-10.00) H 03/14/25 14:13
Ur Squamous Epith Cells 0-2 /LPF (Few) 03/14/25 20:17
Microbiology Results
Micro:
03/14/25 15:38 Blood Culture - Preliminary
Blood/Venous No Growth in 24 hours- Final report to follow
03/14/25 14:13 Blood Culture - Preliminary
Blood/Venous No Growth in 24 hours- Final report to follow
03/14/25 17:08 Body Fluid Culture - Preliminary
Joint Fluid No Growth After 18-24 Hours
Gram Stain - Preliminary
03/14/25 17:08 Anaerobic Culture - Preliminary
Joint Fluid Culture pending. Anaerobic cultures are examined after 3
days incubation. Additional information to follow.
03/14/25 17:08 Body Fluid Culture - Preliminary
Joint Fluid No Growth After 18-24 Hours
Gram Stain - Preliminary
03/14/25 20:17 Urine Culture - Pending
Urine
03/14/25 18:23 Influenza Types A & B (SULAIMAN) - Final
Nasal Swab Negative for Influenza A & B, NAAT
Negative results must be combined with clinical observations
and patient history.
Nucleic Acid Amplification test (NAAT)performed on the
[employer] platform.
03/15/25 CT a/p with IV and po contrast: Two rim-enhancing fluid collections in the right adductor musculature measuring up to 3.5 cm and 1.8 cm, most compatible with intramuscular abscesses. Osseous destructive changes centered at the symphysis
pubis
Assessment / Plan
# Acute Right adductor muscle abscesses
# R pubic symphysis osteo
# Acute Left knee sprain - synovial fluid cx neg to date
# hx prostate ca s/p prostatectomy/XRT 2007; recurrence 3 yrs ago currently on Zytiga/low dose prednisone
# hx prostate sling, urethral implant aroung 2011
# Urethral stricture, self-cath 2x/week to dilate
- Suspect R adductor abscess and pubic osteo source from adjacent urogenital contiguous spread
-Fever x1 resolved
- blood cx's neg to date
- Left knee synovial fluid clotted: no crystals, cx neg to date
- Recommend IR drainage of abscess for culture and cytology
- DC current abx to increase cx yield
-Recommend Urology consult.
Care Review
Plan reviewed with: Physician (Dr. Kenney)
[2025-03-16 08:05] VITALS: BP 119/66
[2025-03-16 08:26] LABS: Hematocrit 31.4 % (39.0-52.0); Hemoglobin 10.5 g/dL (13.0-18.0); Mean Corp Hgb Conc. 33.4 g/dL (33.0-37.0); Mean Corpuscular Volume 85.3 fL (80.0-94.0); Platelet Count 316 10^3/uL (130-400); Red Cell Dist. Width 12.6 % (11.5-14.5)
[2025-03-16] MEDS: MIRALAX 17 GRAMS PO (08:55)
[2025-03-16] MEDS: NORVASC 5 MG PO (08:56)
[2025-03-16] MEDS: ZESTRIL 40 MG PO (08:56)
[2025-03-16] MEDS: OSCAL 500 + D 500 MG PO (08:56)
[2025-03-16] MEDS: DELTASONE 5 MG PO (08:56)
[2025-03-16 09:02] LABS: Blood Urea Nitrogen 14 mg/dl (9-20); Calcium 8.4 mg/dl (8.4-10.2); Carbon Dioxide 31 mmol/L (22-30); Chloride 100 mmol/L (98-107); Estimated Creatinine Clearance 100 ml/min; Glucose 95 mg/dl (70-99); Potassium 3.7 mmol/L (3.5-5.1); Sodium 134 mmol/L (135-145); eGFR > 60.00
--- NOTE | 2025-03-16 09:39 | W.PN.UPDATE ---
Update Note
Progress Note Update
Urology asked to comment on possible source of infection.
- H/o prostate cancer s/p RALP, salvage XRT (2007)
- h/o biochemical recurrence ~2021 - on Zytiga/prednisone
- h/o urethral sling 2010 w/ subsequent erosion and revision
- h/o AUS (AMS 800) in 2016
- h/o urethral strictures on regular self-dilation x2 weekly => with expected chronic asymptomatic bacteriuria of urine
Urology care w/ Dr. Arambula @[facility].
03/15: CTAP w/ IV/PO contrast => 2 rim-enhancing fluid collections in the right adductor musculature measuring up to 3.5 cm and 1.8 cm most compatible with intramuscular abscesses. Osseous destructive changes centered at the symphysis pubis.
Reported history of an outside MRI showing osteomyelitis of the symphysis pubis.
No serologic or radiographic evidence of infection.
No indication for urologic intervention.
UA reviewed - c/w chronic colonization.
UCx NG.
D/w Hospitalist.
[2025-03-16 11:14] VITALS: BP 132/71
--- NOTE | 2025-03-16 11:28 | W.PN.HOSP.TC ---
Today's Communication/Plan
-
pending drain of abscesses
Assessment / Plan
Assessment / Plan
74yo M with PMHx of Prostate CA on Zytiga, adrenal insufficiency 2/2 chemo on Prednisone, Hypothyroidism, HTN, HLD came with acute onset of L knee pain, found large suprapatellar effusion in ED that was tapped and fluid showed abudant clotting so
WBC could not be calculated. Also febrile with elevated WBC count on admission so started on Ancef for septic arthritis, however Orthopedics consider it less likely, since patient recently increased weight baring on LLE due to R hip problems.
Followed in the [facility].
A/P:
#L knee acute monoarthritis most liekly 2/2 OA
Ortho evaluated
immobilizer
pending joint fluid Cx
#Abdominal wall abscess
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
Additional information obtained by Ortho from [facility], where patient was followed for his R hip pain. Recent MRI showed OM of pubic symphysis and associated pelvic collection, possibly related to the prostate Sx that was previously doen by
Tyesha in [facility]. Most liekly it is a source of infection. CT scan reasonable for fluid collection. Will consult Urology as per suggestion from Ortho. Request info for MRI reading from [facility]
CT showed Two rim-enhancing fluid collections in the right adductor musculature measuring up to 3.5 cm and 1.8 cm, most compatible with intramuscular abscesses. IRAD for drain
CT with Osseous destructive changes centered at the symphysis pubis.
Concern for immunocompromised patient with Hx of CA and chronic Prednisone
Bcx and joint fluid Cx pending and NTD
ID consult: drain abscess, concern for urologic source, but as per Urology eval with absent positive UA, no signs of inflammation around Urogenital organs - unlikely. Holding ff Abx pending abscess Cx
#Asymptomatic bacteriuria
no urinary symptoms reported
follow Ucx
#Prostate CA
#Urinary strictures on self-cath
#Iatrogenic adrenal insufficiency
#Hypothyroidism
#HLD
#Essential HTN
PAtient requesting Zytiga with Synthroid strictly at 6:30am and the rest of meds at 8am with food.
COnt home meds
watch for retention
cont straight cath as needed
DVT ppx lovenox
FUll code
I have spent at least 57min reviewing chart, test results, communication with consultants and providing direct patient care
Anticipated Discharge: > 48 hours
Subjective/Interval History
-
Date of Service: March 16, 2025
Objective Data
-
Labs:
Laboratory Results
03/16/25
06:59
WBC 9.2
Hgb 10.5 L
Hct 31.4 L
Plt Count 316
Sodium 134 L
Potassium 3.7
Chloride 100
Carbon Dioxide 31 H
BUN 14
Creatinine 0.7
Glucose 95
Calcium 8.4
Vital Signs:
Vital Signs
Temp Pulse Resp BP Pulse Ox
100 F 78 18 132/71 97
03/16/25 11:14 03/16/25 11:14 03/16/25 11:14 03/16/25 11:14 03/16/25 11:14
I&O
03/15/25 03/16/25 03/17/25
06:59 06:59 06:59
Intake Total 480 / 480 960 / 960
Output Total 200 / 200 1440 / 1440
Balance 280 / 280 -480 / -480
Review of Systems
-
History Source: Patient
All other systems: Reviewed and negative
Physical Exam
-
General: No Apparent Distress
HEENT: Normocephalic
Cardiac: Regular Rhythm
Skin: Warm
Neuro: Awake, Alert, Oriented and AO x 3
Psych: Calm
[2025-03-16] MEDS: TYLENOL 650 MG PO ×2 (11:49→21:54)
--- NOTE | 2025-03-16 14:45 | W.PN.UPDATE ---
Update Note
Progress Note Update
Patient seen, examined, labs reviewed
Left knee effusion. No warmth, no redness. Knee immobilizer is in place
Cultures from the left knee aspiration are negative. No need for acute orthopedic intervention
Keep knee immobilizer and follow up in the office upon discharge.
Will sign off. Please call with questions
[2025-03-16 16:15] VITALS: BP 103/57
[2025-03-16] MEDS: LOVENOX 40 MG SC (17:09)
[2025-03-16] MEDS: LIPITOR 10 MG PO (17:09)
--- NOTE | 2025-03-16 18:38 | PTCARENOTE ---
Dr. Kenney made aware pt. with c/o itchy rash on back. Picture provided via tiger text. Hypoallergenic sheets applied to pt. bed. Dr. Kenney to place Benadryl order. No new orders at this time. Will pass on to oncoming shift nurse.
[2025-03-16] MEDS: BENADRYL 25 MG PO (18:43)
[2025-03-16 19:52] VITALS: BP 125/60
[2025-03-16 23:00] VITALS: BP 122/65
[2025-03-17] VITALS (8 sets, daily range): BP systolic 76–149; BP diastolic 58–71
[2025-03-17] MEDS: SYNTHROID 175 MCG PO (06:02)
[2025-03-17] MEDS: NON-FORMULARY ITEM 1000 MG PO (06:02)
[2025-03-17 08:05] LABS: Hematocrit 29.6 % (39.0-52.0); Hemoglobin 9.9 g/dL (13.0-18.0); Mean Corp Hgb Conc. 33.4 g/dL (33.0-37.0); Mean Corpuscular Volume 84.8 fL (80.0-94.0); Platelet Count 344 10^3/uL (130-400); Red Cell Dist. Width 12.5 % (11.5-14.5)
[2025-03-17] MEDS: NORVASC 5 MG PO (08:30)
[2025-03-17] MEDS: ZESTRIL 40 MG PO (08:30)
[2025-03-17] MEDS: FLUSH (NSS) 1 FLUSH IV ×2 (08:31→12:42)
[2025-03-17 08:35] LABS: Blood Urea Nitrogen 13 mg/dl (9-20); Calcium 8.6 mg/dl (8.4-10.2); Carbon Dioxide 31 mmol/L (22-30); Chloride 104 mmol/L (98-107); Estimated Creatinine Clearance 100 ml/min; Glucose 93 mg/dl (70-99); Potassium 3.6 mmol/L (3.5-5.1); Sodium 135 mmol/L (135-145); eGFR > 60.00
--- NOTE | 2025-03-17 10:20 | W.PN.ID1 ---
Date of Service
Date of Service: March 17, 2025
Today's Communication
- 03/17 s/p IR drainage of abscess for culture and cytology
- start vancomycin and ceftriaxone pending culture results
Assessment / Plan
# Acute Right adductor muscle abscesses
# R pubic symphysis osteo
# Acute Left knee sprain - synovial fluid cx neg to date
# hx prostate ca s/p prostatectomy/XRT 2007; recurrence 3 yrs ago currently on Zytiga/low dose prednisone
# hx prostate sling, urethral implant 2010
# Urethral stricture, self-cath 2x/week to dilate
- Suspect R adductor abscess and pubic osteo source from adjacent urogenital contiguous spread
- 03/14 UA with pyuria, urine culture polymicrobial
- Fever x1 resolved
- 03/14 blood cx's neg to date
- 03/14 Left knee synovial fluid clotted: no crystals, cx neg to date
- 03/17 s/p IR drainage of abscess for culture and cytology
- start vancomycin and ceftriaxone pending culture results
Chief Complaint
-: Other (osteomyelitis, adductor abscess)
Subjective / Review of Systems
no further paul fevers, tmax was 1001.
bp overall stable
has some pruritus and folliculitis on the back
Vital Signs / Physical Exam
Vital Signs
Vital Signs
Temp Pulse Resp BP Pulse Ox
99.6 F 71 18 127/58 96
03/17/25 07:45 03/17/25 08:30 03/17/25 07:45 03/17/25 08:30 03/17/25 08:27
Physical Exam
Constitutional: No Acute Distress
Cardiovascular: Regular Rate and S1/S2; Negative Murmur or Rub
Pulmonary: Clear and Symmetric; Negative Wheezes or Rales
Gastrointestinal: Soft, Non Tender, Non Distended and Normal Bowel Sounds
Skin: Warm, Dry and Rash (folliculitis - small raised pustules); Negative Jaundice
Objective Data
Lab Data
Lab Results
03/17/25 07:38
03/17/25 07:38
ESR 76 mm/hour (0-20) H 03/14/25 13:32
Estimated Creat Clear 100 ml/min 03/17/25 07:38
Lactic Acid 1.4 mmol/L (0.7-2.0) 03/14/25 Unknown
Total Bilirubin 1.2 mg/dl (0.2-1.3) 03/15/25 06:11
AST 13 U/L (17-59) L 03/15/25 06:11
ALT 10 U/L (0-50) 03/15/25 06:11
Alkaline Phosphatase 62 U/L (38-126) 03/15/25 06:11
C-Reactive Protein 48.70 mg/L (0.0-10.00) H 03/14/25 14:13
Most recent labs reviewed.
Micro Results:
03/14/25 15:38 Blood Culture - Preliminary
Blood/Venous No Growth in 48 hours- Final report to follow
03/14/25 14:13 Blood Culture - Preliminary
Blood/Venous No Growth in 48 hours- Final report to follow
03/14/25 17:08 Body Fluid Culture - Preliminary
Joint Fluid No Growth After 48 Hours
Gram Stain - Preliminary
03/14/25 17:08 Body Fluid Culture - Preliminary
Joint Fluid No Growth After 48 Hours
Gram Stain - Preliminary
03/14/25 20:17 Urine Culture - Final
Urine
03/14/25 17:08 Anaerobic Culture - Preliminary
Joint Fluid Culture pending. Anaerobic cultures are examined after 3
days incubation. Additional information to follow.
03/14/25 18:23 Influenza Types A & B (SULAIMAN) - Final
Nasal Swab Negative for Influenza A & B, NAAT
Negative results must be combined with clinical observations
and patient history.
Nucleic Acid Amplification test (NAAT)performed on the
[employer] platform.
03/15/25 CT a/p with IV and po contrast: Two rim-enhancing fluid collections in the right adductor musculature measuring up to 3.5 cm and 1.8 cm, most compatible with intramuscular abscesses. Osseous destructive changes centered at the symphysis
pubis
--- NOTE | 2025-03-17 10:33 | W.PN.HOSP.TC ---
Addendum entered and electronically signed by Catarino Kenney MD 03/17/25 18:07:
Correction - R thigh abscesses, not abdominal wall
Original Note:
Today's Communication/Plan
-
pending IRAD and Cx
Assessment / Plan
Assessment / Plan
74yo M with PMHx of Prostate CA on Zytiga, adrenal insufficiency 2/2 chemo on Prednisone, Hypothyroidism, HTN, HLD came with acute onset of L knee pain, found large suprapatellar effusion in ED that was tapped and fluid showed abudant clotting so
WBC could not be calculated. Also febrile with elevated WBC count on admission so started on Ancef for septic arthritis, however Orthopedics consider it less likely, since patient recently increased weight baring on LLE due to R hip problems.
Followed in the [facility].
A/P:
#Abdominal wall abscess
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
Additional information obtained by Ortho from [facility], where patient was followed for his R hip pain. Recent MRI showed OM of pubic symphysis and associated pelvic collection, possibly related to the prostate Sx that was previously doen by
Tyesha in [facility]. Most likely it is a source of infection. CT scan reasonable for fluid collection. Will consult Urology as per suggestion from Ortho. Request info for MRI reading from [facility]
CT showed Two rim-enhancing fluid collections in the right adductor musculature measuring up to 3.5 cm and 1.8 cm, most compatible with intramuscular abscesses. IRAD for drain
CT with Osseous destructive changes centered at the symphysis pubis.
Concern for immunocompromised patient with Hx of CA and chronic Prednisone
ID consult: drain abscess, concern for urologic source, but as per Urology eval with absent positive UA, no signs of inflammation around Urogenital organs - unlikely. Holding ff Abx pending abscess Cx
#L knee acute monoarthritis most likely 2/2 OA
Improving
Ortho evaluated
immobilizer
Bcx and joint fluid Cx NTD
#Asymptomatic bacteriuria
no urinary symptoms reported
follow Ucx
#Prostate CA
#Urinary strictures on self-cath
#Iatrogenic adrenal insufficiency
#Hypothyroidism
#HLD
#Essential HTN
PAtient requesting Zytiga with Synthroid strictly at 6:30am and the rest of meds at 8am with food.
COnt home meds
watch for retention
cont straight cath as needed
DVT ppx lovenox
FUll code
I have spent at least 57min reviewing chart, test results, communication with consultants and providing direct patient care
Anticipated Discharge: > 48 hours
Subjective/Interval History
-
Date of Service: March 17, 2025
Objective Data
-
Labs:
Laboratory Results
03/17/25
07:38
WBC 7.1
Hgb 9.9 L
Hct 29.6 L
Plt Count 344
Sodium 135
Potassium 3.6
Chloride 104
Carbon Dioxide 31 H
BUN 13
Creatinine 0.7
Glucose 93
Calcium 8.6
Vital Signs:
Vital Signs
Temp Pulse Resp BP Pulse Ox
99.6 F 71 18 127/58 96
03/17/25 07:45 03/17/25 08:30 03/17/25 07:45 03/17/25 08:30 03/17/25 08:27
I&O
03/16/25 03/17/25 03/18/25
06:59 06:59 06:59
Intake Total 960 / 960 1440 / 1440
Output Total 1440 / 1440 900 / 900
Balance -480 / -480 540 / 540
Review of Systems
-
History Source: Patient
All other systems: Reviewed and negative
Physical Exam
-
General: No Apparent Distress
Neuro: Awake, Alert, Oriented and AO x 3
Psych: Calm
[2025-03-17 11:31] LABS: ANA, IgG Reflex to HEp-2 Detected (None Detected)
--- NOTE | 2025-03-17 12:08 | PHA.VAN.IN ---
Assessment
- Assessment
Renal Function: Appears similar to baseline
Concomitant Antimicrobials: ceftriaxone
AUC Dosing Plan
- Dosing Variables
Dosing Weight (kg): 89
Dosing CrCl (ml/min): 100
Vd coefficient (L/kg): 0.7
- Empiric Dosing
Initial / Loading Dose: 2000mg - administration pending
Maintenance Regimen: Vanc 1250mg Q12H starting 03/18 600
Estimated AUC (mcg*h/mL): 489
Estimated Peak (mcg*h/mL): 30.9
Estimated Trough (mcg/ml): 12.3
Estimated Half Life (H): 7.9
- Monitoring
No levels ordered at this time: consider levels in next few days
Pharmacokinetics Vancomycin I
- -
Patient Age: 74
Patient Sex: Male
Vancomycin Day #: 1
Indication: Bone And Joint
Requesting Provider: Dr. Cardenas
Pertinent Antimicrobial Allergies:
NKDA
Height / Weight:
Height 5 ft 8 in
Actual Weight 89.018 kg
Pertinent Past Medical History: Prostate cancer, BMI ~30
- Vital Signs / Lab Results
Temp Pulse Resp BP Pulse Ox
99.6 F 76 16 130/68 96
03/17/25 11:44 03/17/25 11:44 03/17/25 11:44 03/17/25 11:44 03/17/25 11:44
Lab Results - Hematology
03/14/25 03/15/25 03/16/25
13:32 06:11 06:59
WBC 14.4 H 9.1 9.2
03/17/25
07:38
WBC 7.1
Lab Results - Chemistry
03/14/25 03/15/25 03/16/25
Unknown 06:11 06:59
BUN 22 H 25 H 14
Creatinine 0.8 0.7 0.7
Estimated Creat Clear 88 100 100
Albumin 4.1 3.3 L
03/17/25
07:38
BUN 13
Creatinine 0.7
Estimated Creat Clear 100
Albumin
03/14/25
Unknown
Lactic Acid 1.4
Lab Results - Urine
03/14/25
20:17
Urine Nitrite (Reflex) Negative
Leukocyte Esterase Rfl 3+ A
Urine WBC (Reflex) 50-60 A
Ur Squamous Epith Cells 0-2
Urine Bacteria (Reflex) Many A
Microbiology Results
03/14/25 17:08 Body Fluid Culture - Final
Joint Fluid No Growth After 72 Hours
Gram Stain - Final
03/14/25 17:08 Body Fluid Culture - Preliminary
Joint Fluid No Growth After 72 Hours
Gram Stain - Preliminary
03/14/25 15:38 Blood Culture - Preliminary
Blood/Venous No Growth in 48 hours- Final report to follow
03/14/25 14:13 Blood Culture - Preliminary
Blood/Venous No Growth in 48 hours- Final report to follow
03/14/25 20:17 Urine Culture - Final
Urine
03/14/25 17:08 Anaerobic Culture - Preliminary
Joint Fluid Culture pending. Anaerobic cultures are examined after 3
days incubation. Additional information to follow.
[2025-03-17] MEDS: OSCAL 500 + D 500 MG PO (12:40)
[2025-03-17] MEDS: DELTASONE 5 MG PO (12:40)
[2025-03-17] MEDS: STERILE WATER FOR INJECTION 20 ML IV (12:41)
[2025-03-17] MEDS: VANCOCIN 540 MG IV (12:42)
[2025-03-17] MEDS: ROCEPHIN 2000 MG IV (12:42)
--- NOTE | 2025-03-17 12:54 | CM ---
reviewed chart and met with pt bedside. Discussed PT rec on Home Health. He is agreeable, Choices offered; pt selected [facility]. [facility] made aware
Plan: Home with [facility].
--- NOTE | 2025-03-17 13:23 | VNURNOTE ---
Home health liaison met with patient to discuss [facility] services, visit scheduling/frequency, homebound status and pet policy. Patient agreeable to [facility] services and understands home visits will be 1-2 times a week to assess and teach medical
management. Patient aware a visiting nurse will contact him for start of care within 1 week after discharge from . [facility] Referral completed in care port
[2025-03-17 16:28] LABS: Lyme Antibody Screen, EIA Negative (Negative)
--- NOTE | 2025-03-17 17:11 | PTCARENOTE ---
Pt AO x3, ALANIZ well. VSS. On room air- puls eox 95%, no SOB noted. Abd soft, rounded, latoya :O well. Voids small amts yellow urine in urinal. Rt groin site bandaid D/I. Pt c/o mild 'itching' from macular rash on back requesting prn topical med-
notified. Will continue to monitor.
[2025-03-17] MEDS: LOVENOX 40 MG SC (17:49)
[2025-03-17] MEDS: LIPITOR 10 MG PO (17:49)
[2025-03-17] MEDS: ZYRTEC 10 MG PO (18:25)
[2025-03-18] MEDS: VANCOCIN 275 MG IV (06:06)
[2025-03-18] MEDS: SYNTHROID 175 MCG PO (06:07)
[2025-03-18] MEDS: NON-FORMULARY ITEM 1000 MG PO (06:07)
[2025-03-18 07:52] VITALS: BP 135/66
[2025-03-18] MEDS: ZESTRIL 40 MG PO (08:16)
[2025-03-18] MEDS: NORVASC 5 MG PO (08:16)
[2025-03-18] MEDS: DELTASONE 5 MG PO (08:16)
[2025-03-18] MEDS: OSCAL 500 + D 500 MG PO (08:16)
[2025-03-18] MEDS: ZYRTEC 10 MG PO (08:16)
[2025-03-18 08:18] LABS: Blood Urea Nitrogen 15 mg/dl (9-20); Calcium 8.4 mg/dl (8.4-10.2); Carbon Dioxide 30 mmol/L (22-30); Chloride 104 mmol/L (98-107); Estimated Creatinine Clearance 70 ml/min; Glucose 96 mg/dl (70-99); Potassium 3.9 mmol/L (3.5-5.1); Sodium 137 mmol/L (135-145); eGFR > 60.00
--- NOTE | 2025-03-18 08:22 | PHA.VAN.FU ---
Vancomycin Assessment / Plan
- Assessment
Renal Function: SCR Increasing (0.7-->1.0)
WBC's are: Stable
In the past 24 hrs, patient has been: Afebrile
Concomitant Antimicrobials: CEFTRIAXONE
- Dosing Plan
Adjust Regimen to: 1000MG Q12H
- Monitoring Plan
No level(s) ordered at this time: CONSIDER AT STEADY STATE
- Follow Up
Pharmacy will continue to follow.
Vancomycin Follow UP
- -
Patient Age: 74
Patient Sex: Male
Vancomycin Day #: 2
Indication: Bone And Joint
Requesting Provider: Dr. Cardenas
Pertinent Antimicrobial Allergies:
NKDA
Height / Weight:
Height 5 ft 8 in
Actual Weight 89.018 kg
Pertinent Past Medical History: Prostate cancer, BMI ~30
- Vital Signs / Lab Results
Temp Pulse Resp BP Pulse Ox
98.3 F 74 18 120/61 98
03/17/25 23:15 03/17/25 23:15 03/17/25 23:15 03/17/25 23:15 03/17/25 23:15
Lab Results - Hematology
03/16/25 03/17/25
06:59 07:38
WBC 9.2 7.1
Lab Results - Chemistry
03/15/25 03/16/25 03/17/25
06:11 06:59 07:38
BUN 25 H 14 13
Creatinine 0.7 0.7 0.7
Estimated Creat Clear 100 100 100
Albumin 3.3 L
03/18/25
07:07
BUN 15
Creatinine 1.0
Estimated Creat Clear 70
Albumin
Microbiology Results
03/17/25 11:00 Gram Stain - Preliminary
Leg - Right
03/14/25 15:38 Blood Culture - Preliminary
Blood/Venous No Growth in 72 hours- Final report to follow
03/14/25 14:13 Blood Culture - Preliminary
Blood/Venous No Growth in 72 hours- Final report to follow
03/14/25 17:08 Anaerobic Culture - Preliminary
Joint Fluid NO ANAEROBES ISOLATED
03/14/25 17:08 Body Fluid Culture - Final
Joint Fluid No Growth After 72 Hours
Gram Stain - Final
03/14/25 17:08 Body Fluid Culture - Preliminary
Joint Fluid No Growth After 72 Hours
Gram Stain - Preliminary
03/14/25 20:17 Urine Culture - Final
Urine
--- NOTE | 2025-03-18 10:59 | W.PN.HOSP.TC ---
Today's Communication/Plan
-
cont Abx
Assessment / Plan
Assessment / Plan
74yo M with PMHx of Prostate CA on Zytiga, adrenal insufficiency 2/2 chemo on Prednisone, Hypothyroidism, HTN, HLD came with acute onset of L knee pain, found large suprapatellar effusion in ED that was tapped and fluid showed abudant clotting so
WBC could not be calculated. Also febrile with elevated WBC count on admission so started on Ancef for septic arthritis, however Orthopedics consider it less likely, since patient recently increased weight baring on LLE due to R hip problems.
Followed in the [facility]. LAter found with abductor muscle absess s/p IRAD drain pending Cx on Abx
A/P:
#Abductor muscle abscess
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
Additional information obtained by Ortho from [facility], where patient was followed for his R hip pain. Recent MRI showed OM of pubic symphysis and associated pelvic collection, possibly related to the prostate Sx that was previously done by
Tyesha in [facility]. Most likely it is a source of infection. CT scan reasonable for fluid collection. Will consult Urology as per suggestion from Ortho. Request info for MRI reading from [facility]
CT showed Two rim-enhancing fluid collections in the right adductor musculature measuring up to 3.5 cm and 1.8 cm, most compatible with intramuscular abscesses. IRAD for drain on 03/17/25 - Cx pending
CT with Osseous destructive changes centered at the symphysis pubis.
Concern for immunocompromised patient with Hx of CA and chronic Prednisone
ID consult: drain abscess, concern for urologic source, but as per Urology eval with absent positive UA, no signs of inflammation around Urogenital organs - unlikely. Vanco/ceftriaxone
#L knee acute monoarthritis most likely 2/2 OA
Improving
Ortho evaluated
immobilizer
Bcx and joint fluid Cx NTD
#Asymptomatic bacteriuria
no urinary symptoms reported
follow Ucx
#Contact dermatitis with rash on back
hypoallergenic sheets
Zyrtec - pruritus resolved
#Prostate CA
#Urinary strictures on self-cath
#Iatrogenic adrenal insufficiency
#Hypothyroidism
#HLD
#Essential HTN
PAtient requesting Zytiga with Synthroid strictly at 6:30am and the rest of meds at 8am with food.
COnt home meds
watch for retention
cont straight cath as needed
DVT ppx lovenox
FUll code
I have spent at least 51min reviewing chart, test results, communication with consultants and providing direct patient care
Anticipated Discharge: > 48 hours
Subjective/Interval History
-
Date of Service: March 18, 2025
Objective Data
-
Labs:
Laboratory Results
03/18/25
07:07
Sodium 137
Potassium 3.9
Chloride 104
Carbon Dioxide 30
BUN 15
Creatinine 1.0
Glucose 96
Calcium 8.4
Vital Signs:
Vital Signs
Temp Pulse Resp BP Pulse Ox
98.9 F 74 18 135/66 96
03/18/25 07:52 03/18/25 07:52 03/18/25 07:52 03/18/25 07:52 03/18/25 08:00
I&O
03/17/25 03/18/25 03/19/25
06:59 06:59 06:59
Intake Total 1440 / 1440 1140 / 1140 480 / 480
Output Total 900 / 900 250 / 250 800 / 800
Balance 540 / 540 890 / 890 -320 / -320
Review of Systems
-
History Source: Patient
All other systems: Reviewed and negative
Physical Exam
-
General: Comfortable
HEENT: Normocephalic
Cardiac: Regular Rhythm
Neuro: Awake, Alert, Oriented and AO x 3
Psych: Calm
[2025-03-18] MEDS: STERILE WATER FOR INJECTION 20 ML IV (12:10)
[2025-03-18] MEDS: ROCEPHIN 2000 MG IV (12:10)
[2025-03-18 15:00] VITALS: BP 122/61
[2025-03-18] MEDS: VANCOCIN 200 IV (17:26)
[2025-03-18] MEDS: LIPITOR 10 MG PO (17:26)
[2025-03-18] MEDS: LOVENOX 40 MG SC (17:26)
[2025-03-18 23:18] VITALS: BP 116/60
[2025-03-19] MEDS: VANCOCIN 200 IV ×2 (05:36→17:14)
[2025-03-19] MEDS: NON-FORMULARY ITEM 1000 MG PO (06:07)
[2025-03-19 07:28] VITALS: BP 133/60
--- NOTE | 2025-03-19 07:49 | PHA.VAN.FU ---
Vancomycin Assessment / Plan
- Assessment
Renal Function: No New Labs Today
In the past 24 hrs, patient has been: Afebrile
Concomitant Antimicrobials: ceftriaxone
- Dosing Plan
Continue: 1000mg q12h
- Monitoring Plan
Peak Level: 03/19 @2100
Trough Level: 03/20 @0530
- Follow Up
Pharmacy will continue to follow.
Vancomycin Follow UP
- -
Patient Age: 74
Patient Sex: Male
Vancomycin Day #: 3
Indication: Bone And Joint
Requesting Provider: Dr. Cardenas
Pertinent Antimicrobial Allergies:
NKDA
Height / Weight:
Height 5 ft 8 in
Actual Weight 89.018 kg
Pertinent Past Medical History: Prostate cancer, BMI ~30
- Vital Signs / Lab Results
Temp Pulse Resp BP Pulse Ox
98.8 F 68 18 116/60 96
03/18/25 23:18 03/18/25 23:18 03/18/25 23:18 03/18/25 23:18 03/18/25 23:18
Lab Results - Hematology
03/16/25 03/17/25
06:59 07:38
WBC 9.2 7.1
Lab Results - Chemistry
03/16/25 03/17/25 03/18/25
06:59 07:38 07:07
BUN 14 13 15
Creatinine 0.7 0.7 1.0
Estimated Creat Clear 100 100 70
Microbiology Results
03/14/25 15:38 Blood Culture - Preliminary
Blood/Venous No Growth in 4 days- Final report to follow
03/14/25 14:13 Blood Culture - Preliminary
Blood/Venous No Growth in 4 days- Final report to follow
03/17/25 11:00 Wound Culture - Preliminary
Leg - Right No growth
Gram Stain - Preliminary
03/14/25 17:08 Anaerobic Culture - Preliminary
Joint Fluid NO ANAEROBES ISOLATED
03/14/25 17:08 Body Fluid Culture - Final
Joint Fluid No Growth After 72 Hours
Gram Stain - Final
03/14/25 17:08 Body Fluid Culture - Preliminary
Joint Fluid No Growth After 72 Hours
Gram Stain - Preliminary
[2025-03-19] MEDS: OSCAL 500 + D 500 MG PO (08:20)
[2025-03-19] MEDS: DELTASONE 5 MG PO (08:20)
[2025-03-19] MEDS: NORVASC 5 MG PO (08:21)
[2025-03-19] MEDS: ZYRTEC 10 MG PO (08:21)
[2025-03-19] MEDS: ZESTRIL 40 MG PO (08:21)
[2025-03-19] MEDS: STERILE WATER FOR INJECTION 20 ML IV (11:26)
[2025-03-19] MEDS: ROCEPHIN 2000 MG IV (11:27)
--- NOTE | 2025-03-19 11:28 | W.PN.HOSP.TC ---
Today's Communication/Plan
-
cont Abx pending Cx - remain NTD
Assessment / Plan
Assessment / Plan
74yo M with PMHx of Prostate CA on Zytiga, adrenal insufficiency 2/2 chemo on Prednisone, Hypothyroidism, HTN, HLD came with acute onset of L knee pain, found large suprapatellar effusion in ED that was tapped and fluid showed abudant clotting so
WBC could not be calculated. Also febrile with elevated WBC count on admission so started on Ancef for septic arthritis, however Orthopedics consider it less likely, since patient recently increased weight baring on LLE due to R hip problems.
Followed in the [facility]. LAter found with abductor muscle absess s/p IRAD drain pending Cx on Abx
A/P:
#Abductor muscle abscess
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
Additional information obtained by Ortho from [facility], where patient was followed for his R hip pain. Recent MRI showed OM of pubic symphysis and associated pelvic collection, possibly related to the prostate Sx that was previously done by
Tyesha in [facility]. Most likely it is a source of infection. CT scan reasonable for fluid collection. Will consult Urology as per suggestion from Ortho. Request info for MRI reading from [facility]
CT showed Two rim-enhancing fluid collections in the right adductor musculature measuring up to 3.5 cm and 1.8 cm, most compatible with intramuscular abscesses. IRAD for drain on 03/17/25 - Cx pending
CT with Osseous destructive changes centered at the symphysis pubis.
Concern for immunocompromised patient with Hx of CA and chronic Prednisone
ID consult: drain abscess, concern for urologic source, but as per Urology eval with absent positive UA, no signs of inflammation around Urogenital organs - unlikely. Vanco/ceftriaxone
#L knee acute monoarthritis most likely 2/2 OA
almost resolved
Ortho evaluated
immobilizer as needed
Bcx and joint fluid Cx NTD
#Asymptomatic bacteriuria
no urinary symptoms reported
follow Ucx
#Contact dermatitis with rash on back
hypoallergenic sheets
Zyrtec - pruritus resolved
#Prostate CA
#Urinary strictures on self-cath
#Iatrogenic adrenal insufficiency
#Hypothyroidism
#HLD
#Essential HTN
PAtient requesting Zytiga with Synthroid strictly at 6:30am and the rest of meds at 8am with food.
COnt home meds
watch for retention
cont straight cath as needed
DVT ppx lovenox
FUll code
I have spent at least 38min reviewing chart, test results, communication with consultants and providing direct patient care
Anticipated Discharge: > 48 hours
Subjective/Interval History
-
Date of Service: March 19, 2025
Objective Data
-
Vital Signs:
Vital Signs
Temp Pulse Resp BP Pulse Ox
98.8 F 70 18 133/60 96
03/19/25 07:28 03/19/25 08:21 03/19/25 07:28 03/19/25 08:21 03/19/25 07:28
I&O
03/18/25 03/19/25 03/20/25
06:59 06:59 06:59
Intake Total 1140 / 1140 1860 / 1860
Output Total 250 / 250 3250 / 3250
Balance 890 / 890 -1390 / -1390
Review of Systems
-
History Source: Patient
All other systems: Reviewed and negative
Physical Exam
-
General: No Apparent Distress
HEENT: Normocephalic
Respiratory: Clear to Auscultation
GI: Soft, Nontender and Nondistended
Musculoskeletal: No Clubbing, No Cyanosis and No Edema
Skin: Warm
Psych: Calm
[2025-03-19 15:00] VITALS: BP 113/60
[2025-03-19] MEDS: LOVENOX 40 MG SC (17:13)
[2025-03-19] MEDS: LIPITOR 10 MG PO (17:13)
[2025-03-19 23:38] VITALS: BP 122/67
[2025-03-20] MEDS: SYNTHROID 175 MCG PO (06:09)
[2025-03-20] MEDS: DELTASONE 5 MG PO (06:10)
[2025-03-20] MEDS: VANCOCIN 200 IV (06:10)
[2025-03-20] MEDS: NON-FORMULARY ITEM 1000 MG PO (06:14)
[2025-03-20 06:16] LABS: Hematocrit 31.4 % (39.0-52.0); Hemoglobin 10.2 g/dL (13.0-18.0); Mean Corp Hgb Conc. 32.5 g/dL (33.0-37.0); Mean Corpuscular Volume 85.3 fL (80.0-94.0); Nucleated Red Blood Cells % 0 % (-); Platelet Count 365 10^3/uL (130-400); Red Cell Dist. Width 12.6 % (11.5-14.5)
[2025-03-20 06:44] LABS: ALT (SGPT) 14 U/L (0-50); AST (SGOT) 20 U/L (17-59); Albumin 2.9 g/dl (3.5-5.0); Alkaline Phosphatase 52 U/L (38-126); Blood Urea Nitrogen 17 mg/dl (9-20); Calcium 8.6 mg/dl (8.4-10.2); Carbon Dioxide 32 mmol/L (22-30); Chloride 107 mmol/L (98-107); Estimated Creatinine Clearance 64 ml/min; Glucose 97 mg/dl (70-99); Potassium 3.8 mmol/L (3.5-5.1); Sodium 140 mmol/L (135-145); Total Protein 6.1 g/dl (6.3-8.2); eGFR > 60.00
[2025-03-20 06:58] LABS: ANA, HEp-2, IgG <1:80 (<1:80)
[2025-03-20 07:05] VITALS: BP 146/69
--- NOTE | 2025-03-20 08:26 | PHA.VAN.FU ---
Vancomycin Assessment / Plan
- Assessment
Renal Function: SCR Increasing
WBC's are: WNL
In the past 24 hrs, patient has been: Afebrile
Concomitant Antimicrobials: ceftriaxone
- Assessment - Therapeutic Drug Monitoring
Extrapolated Cmax (mcg/mL): 27.8
Peak level was drawn: Appropriately (drawn ~2H after end of previous infusion)
Extrapolated Cmin (mcg/mL): 17.3
Trough Drawn: Appropriately
Levels were drawn: At steady state (levels drawn after 3rd maintenance dose)
Calculated AUC (mcg*h/mL): 532
Calculated ke: 0.0434
Calculated half life (H): 16
Calculated Vd (L): 87
Calculated Vanc CL (ml/min): 63
- Dosing Plan
Adjust Regimen to: dosing by level
Dosing Comments: received 1000mg this AM at 06:10
Given increasing trend in SCR, prolonged half-life and trough at upper end of limits, will switch to dose by level and follow
- Monitoring Plan
Random Level: 12 0600
- Follow Up
Pharmacy will continue to follow.
Vancomycin Follow UP
- -
Patient Age: 74
Patient Sex: Male
Vancomycin Day #: 4
Indication: Bone And Joint
Requesting Provider: Dr. Cardenas
Pertinent Antimicrobial Allergies:
NKDA
Height / Weight:
Height 5 ft 8 in
Actual Weight 89.018 kg
Pertinent Past Medical History: Prostate cancer, BMI ~30
- Vital Signs / Lab Results
Temp Pulse Resp BP Pulse Ox
98.2 F 68 16 122/67 98
03/19/25 23:38 03/19/25 23:38 03/19/25 23:38 03/19/25 23:38 03/19/25 23:38
Lab Results - Hematology
03/20/25
05:53
WBC 7.4
Lab Results - Chemistry
03/17/25 03/18/25 03/20/25
07:38 07:07 05:53
BUN 13 15 17
Creatinine 0.7 1.0 1.1
Estimated Creat Clear 100 70 64
Albumin 2.9 L
Microbiology Results
03/14/25 15:38 Blood Culture - Final
Blood/Venous No Growth - Final Report
03/14/25 14:13 Blood Culture - Final
Blood/Venous No Growth - Final Report
03/17/25 11:00 Wound Culture - Preliminary
Leg - Right Gram Stain - Preliminary
03/14/25 17:08 Body Fluid Culture - Final
Joint Fluid No Growth After 72 Hours
Gram Stain - Final
03/14/25 17:08 Anaerobic Culture - Final
Joint Fluid NO ANAEROBES ISOLATED
Therapeutic Drug Monitoring
Vancomycin Peak 25.4 ug/ml (18-26) 03/19/25 20:21
Vancomycin Trough 16.8 ug/ml (5-20) 03/20/25 05:53
[2025-03-20] MEDS: ZYRTEC 10 MG PO (09:36)
[2025-03-20] MEDS: NORVASC 5 MG PO (09:36)
[2025-03-20] MEDS: ZESTRIL 40 MG PO (09:36)
[2025-03-20] MEDS: OSCAL 500 + D 500 MG PO (09:37)
--- NOTE | 2025-03-20 10:36 | W.PN.HOSP.TC ---
Today's Communication/Plan
-
Cx remain neg - working with ID on finalizing plan for DC
Assessment / Plan
Assessment / Plan
74yo M with PMHx of Prostate CA on Zytiga, adrenal insufficiency 2/2 chemo on Prednisone, Hypothyroidism, HTN, HLD came with acute onset of L knee pain, found large suprapatellar effusion in ED that was tapped and fluid showed abudant clotting so
WBC could not be calculated. Also febrile with elevated WBC count on admission so started on Ancef for septic arthritis, however Orthopedics consider it less likely, since patient recently increased weight baring on LLE due to R hip problems.
Followed in the [facility]. LAter found with abductor muscle absess s/p IRAD drain pending Cx on Abx
A/P:
#Abductor muscle abscess
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
Additional information obtained by Ortho from [facility], where patient was followed for his R hip pain. Recent MRI showed OM of pubic symphysis and associated pelvic collection, possibly related to the prostate Sx that was previously done by
Tyesha in [facility]. Most likely it is a source of infection. CT scan reasonable for fluid collection. Will consult Urology as per suggestion from Ortho. Request info for MRI reading from [facility]
CT showed Two rim-enhancing fluid collections in the right adductor musculature measuring up to 3.5 cm and 1.8 cm, most compatible with intramuscular abscesses. IRAD for drain on 03/17/25 - Cx pending
CT with Osseous destructive changes centered at the symphysis pubis.
Concern for immunocompromised patient with Hx of CA and chronic Prednisone
ID consult: drain abscess, concern for urologic source, but as per Urology eval with absent positive UA, no signs of inflammation around Urogenital organs - unlikely. Vanco/ceftriaxone
#L knee acute monoarthritis most likely 2/2 OA
almost resolved
Ortho evaluated
immobilizer as needed - patient does not need it anymore
Bcx and joint fluid Cx NTD
#Asymptomatic bacteriuria
no urinary symptoms reported
follow Ucx
#Contact dermatitis with rash on back
hypoallergenic sheets
Zyrtec - pruritus resolved
#Prostate CA
#Urinary strictures on self-cath
#Iatrogenic adrenal insufficiency
#Hypothyroidism
#HLD
#Essential HTN
PAtient requesting Zytiga with Synthroid strictly at 6:30am and the rest of meds at 8am with food.
COnt home meds
watch for retention
cont straight cath as needed
DVT ppx lovenox
FUll code
I have spent at least 51min reviewing chart, test results, communication with consultants and providing direct patient care
Anticipated Discharge: 24 - 48 hours
Subjective/Interval History
-
Date of Service: March 20, 2025
Objective Data
-
Labs:
Laboratory Results
03/20/25
05:53
WBC 7.4
Hgb 10.2 L
Hct 31.4 L
Plt Count 365
Sodium 140
Potassium 3.8
Chloride 107
Carbon Dioxide 32 H
BUN 17
Creatinine 1.1
Glucose 97
Calcium 8.6
Total Bilirubin 0.4
AST 20
ALT 14
Alkaline Phosphatase 52
Vital Signs:
Vital Signs
Temp Pulse Resp BP Pulse Ox
98.1 F 75 18 146/69 98
03/20/25 07:05 03/20/25 09:36 03/20/25 07:05 03/20/25 09:36 03/20/25 07:05
I&O
03/19/25 03/20/25 03/21/25
06:59 06:59 06:59
Intake Total 1860 / 1860 1500 / 1500
Output Total 3250 / 3250 1250 / 1250
Balance -1390 / -1390 250 / 250
Review of Systems
-
History Source: Patient
All other systems: Reviewed and negative
Physical Exam
-
General: No Apparent Distress
HEENT: Normocephalic
Respiratory: Clear to Auscultation
Cardiac: Regular Rhythm
Skin: Warm
Neuro: Awake, Alert, Oriented and AO x 3
Psych: Calm
--- NOTE | 2025-03-20 10:44 | W.PN.ID1 ---
Addendum entered and electronically signed by Eugenia Gilbert MD 03/20/25 12:20:
Abscess cx: Viridans Group Strep.
DC daptomycin.
Continue ceftriaxone 2g IV q24 x 6 weeks through 04/27/25.
Place Picc.
Home infusion sheet submitted to piano case maker.
Original Note:
Date of Service
Date of Service: March 20, 2025
Today's Communication
- Continue ceftriaxone pending culture results
- Replace Vancomycin with Daptomycin pending final cx result. Check CK in am. Hold atorvastatin.
- Anticipate 6 weeks of IV abx.
Assessment / Plan
# Acute Right adductor muscle abscesses
# R pubic symphysis osteo
# Acute Left knee sprain - synovial fluid cx neg to date
# hx prostate ca s/p prostatectomy/XRT 2007; recurrence 3 yrs ago currently on Zytiga/low dose prednisone
# hx prostate sling, urethral implant 2010
# Urethral stricture, self-cath 2x/week to dilate
- R adductor abscess and pubic osteo is NOR from adjacent urogenital contiguous spread, per Urology
- 03/14 UA with pyuria, urine culture polymicrobial
- Fever x1 resolved
- 03/14 blood cx's neg to date
- 03/14 Left knee synovial fluid clotted: no crystals, cx neg to date
- 03/17 s/p IR drainage of abscess : Many wbc, culture in progress.
- Continue ceftriaxone pending culture results
- Replace Vancomycin with Daptomycin pending final cx result. Check CK in am. Hold atorvastatin.
- Anticipate 6 weeks of IV abx.
Chief Complaint
-: Other (osteomyelitis, adductor abscess)
Subjective / Review of Systems
R groin pain minimal.
L knee improving.
Vital Signs / Physical Exam
Vital Signs
Vital Signs
Temp Pulse Resp BP Pulse Ox
98.1 F 75 18 146/69 98
03/20/25 07:05 03/20/25 09:36 03/20/25 07:05 03/20/25 09:36 03/20/25 07:05
Physical Exam
Constitutional: No Acute Distress
Cardiovascular: Regular Rate and S1/S2
Pulmonary: Clear
Gastrointestinal: Soft, Non Tender, Non Distended and Normal Bowel Sounds
Extremities: Edema (LLE decreaseing)
Musculoskeletal: Other (Left knee effusion decreased)
Neurological: AO x 3
Objective Data
Lab Data
Lab Results
03/20/25 05:53
03/20/25 05:53
ESR 76 mm/hour (0-20) H 03/14/25 13:32
Estimated Creat Clear 64 ml/min 03/20/25 05:53
Lactic Acid 1.4 mmol/L (0.7-2.0) 03/14/25 Unknown
Total Bilirubin 0.4 mg/dl (0.2-1.3) 03/20/25 05:53
AST 20 U/L (17-59) 03/20/25 05:53
ALT 14 U/L (0-50) 03/20/25 05:53
Alkaline Phosphatase 52 U/L (38-126) 03/20/25 05:53
C-Reactive Protein 48.70 mg/L (0.0-10.00) H 03/14/25 14:13
Most recent labs reviewed.
Micro Results:
03/14/25 15:38 Blood Culture - Final
Blood/Venous No Growth - Final Report
03/14/25 14:13 Blood Culture - Final
Blood/Venous No Growth - Final Report
03/17/25 11:00 Wound Culture - Preliminary
Leg - Right Gram Stain - Preliminary
03/14/25 17:08 Body Fluid Culture - Final
Joint Fluid No Growth After 72 Hours
Gram Stain - Final
03/14/25 17:08 Anaerobic Culture - Final
Joint Fluid NO ANAEROBES ISOLATED
03/14/25 17:08 Body Fluid Culture - Final
Joint Fluid No Growth After 72 Hours
Gram Stain - Final
03/14/25 20:17 Urine Culture - Final
Urine
03/14/25 18:23 Influenza Types A & B (SULAIMAN) - Final
Nasal Swab Negative for Influenza A & B, NAAT
Negative results must be combined with clinical observations
and patient history.
Nucleic Acid Amplification test (NAAT)performed on the
[employer] platform.
03/15/25 CT a/p with IV and po contrast: Two rim-enhancing fluid collections in the right adductor musculature measuring up to 3.5 cm and 1.8 cm, most compatible with intramuscular abscesses. Osseous destructive changes centered at the symphysis
pubis
Care Review
Plan reviewed with: Physician (Dr. Kenney)
[2025-03-20 11:25] VITALS: BP 147/72; PULSE 68; O2SAT 98
[2025-03-20] MEDS: CUBICIN 14 MG IV (11:37)
[2025-03-20] MEDS: ROCEPHIN 2000 MG IV (12:35)
[2025-03-20] MEDS: STERILE WATER FOR INJECTION 20 ML IV (12:36)
[2025-03-20 15:25] VITALS: BP 134/64
[2025-03-20 15:36] LABS: Rheumatoid Agglutinin Less Than 10 IU (<10 IU)
--- NOTE | 2025-03-20 15:42 | CM ---
Addendum entered by Lizz Rhodes 03/20/25 16:19:
Spoke with Kathryn, [facility] will check costs and if all good will come tomorrow to do teaching.
Original Note:
Patient for home IV anbx.
Per CM, request [facility].
Left VM for liaison from [facility], clinicals (Face sheet, insurance card, H+P, ID note, PICC line, CXR and script) faxed to [facility] at [phone]. Requested costs and anticipated d/c tomorrow.
[2025-03-20] MEDS: LOVENOX 40 MG SC (17:02)
[2025-03-20 23:00] VITALS: BP 143/74
[2025-03-21] MEDS: SYNTHROID 175 MCG PO (06:09)
[2025-03-21] MEDS: NON-FORMULARY ITEM 1000 MG PO (06:10)
[2025-03-21] MEDS: NORVASC 5 MG PO (08:15)
[2025-03-21] MEDS: ZYRTEC 10 MG PO (08:15)
[2025-03-21] MEDS: DELTASONE 5 MG PO (08:15)
[2025-03-21] MEDS: ZESTRIL 40 MG PO (08:15)
[2025-03-21] MEDS: OSCAL 500 + D 500 MG PO (08:15)
[2025-03-21 08:25] VITALS: BP 131/65
--- NOTE | 2025-03-21 08:58 | CM ---
Late note from 03/20/2025: Patient will need home IV ABX. [facility] chosen for services.
Clinicals (Face sheet, insurance card, H+P, ID note, PICC line, CXR and script) faxed to [facility] at [phone]. Requested costs and anticipated d/c tomorrow following infusion teaching.
--- NOTE | 2025-03-21 09:04 | W.PN.ID1 ---
Date of Service
Date of Service: March 21, 2025
Today's Communication
- Continue ceftriaxone [id number] x 6 weeks through 04/27/25.
Assessment / Plan
# Acute Right adductor muscle abscesses
# R pubic symphysis osteo
# Acute Left knee sprain - synovial fluid cx neg to date
# hx prostate ca s/p prostatectomy/XRT 2007; recurrence 3 yrs ago currently on Zytiga/low dose prednisone
# hx prostate sling, urethral implant 2010
# Urethral stricture, self-cath 2x/week to dilate
- R adductor abscess and pubic osteo is NOR from adjacent urogenital contiguous spread, per Urology
- 03/14 UA with pyuria, urine culture polymicrobial
- Fever x1 resolved
- 03/14 blood cx's neg to date
- 03/14 Left knee synovial fluid clotted: no crystals, cx neg to date
- 03/17 s/p IR drainage of abscess : Many wbc, culture: Strep viridans group
-DC daptomycin. Resume atorvastatin
- Continue ceftriaxone [id number] x 6 weeks through 04/27/25.
- Follow weekly CBC, CMP, ESR, CRP.
- Infusion sheet submitted to case finisher 03/20.
Chief Complaint
-: Other (osteomyelitis, adductor abscess)
Subjective / Review of Systems
Feels well.
Vital Signs / Physical Exam
Vital Signs
Vital Signs
Temp Pulse Resp BP Pulse Ox
98.6 F 79 18 131/65 97
03/21/25 08:25 03/21/25 08:25 03/21/25 08:25 03/21/25 08:25 03/21/25 08:25
Physical Exam
Constitutional: No Acute Distress
Cardiovascular: Regular Rate and S1/S2
Pulmonary: Clear
Gastrointestinal: Soft, Non Tender, Non Distended and Normal Bowel Sounds
Extremities: Edema (LLE decreaseing)
Musculoskeletal: Other (Left knee effusion decreased)
Neurological: AO x 3
Lines: PICC (RUE intact)
Objective Data
Lab Data
Lab Results
03/20/25 05:53
03/20/25 05:53
ESR 76 mm/hour (0-20) H 03/14/25 13:32
Estimated Creat Clear 64 ml/min 03/20/25 05:53
Lactic Acid 1.4 mmol/L (0.7-2.0) 03/14/25 Unknown
Total Bilirubin 0.4 mg/dl (0.2-1.3) 03/20/25 05:53
AST 20 U/L (17-59) 03/20/25 05:53
ALT 14 U/L (0-50) 03/20/25 05:53
Alkaline Phosphatase 52 U/L (38-126) 03/20/25 05:53
C-Reactive Protein 48.70 mg/L (0.0-10.00) H 03/14/25 14:13
Most recent labs reviewed.
Micro Results:
03/17/25 11:00 Wound Culture - Final
Leg - Right Viridans Streptococcus Group
Gram Stain - Final
03/14/25 15:38 Blood Culture - Final
Blood/Venous No Growth - Final Report
03/14/25 14:13 Blood Culture - Final
Blood/Venous No Growth - Final Report
03/14/25 17:08 Body Fluid Culture - Final
Joint Fluid No Growth After 72 Hours
Gram Stain - Final
03/14/25 17:08 Anaerobic Culture - Final
Joint Fluid NO ANAEROBES ISOLATED
03/14/25 17:08 Body Fluid Culture - Final
Joint Fluid No Growth After 72 Hours
Gram Stain - Final
03/14/25 20:17 Urine Culture - Final
Urine
03/14/25 18:23 Influenza Types A & B (SULAIMAN) - Final
Nasal Swab Negative for Influenza A & B, NAAT
Negative results must be combined with clinical observations
and patient history.
Nucleic Acid Amplification test (NAAT)performed on the
[employer] platform.
03/15/25 CT a/p with IV and po contrast: Two rim-enhancing fluid collections in the right adductor musculature measuring up to 3.5 cm and 1.8 cm, most compatible with intramuscular abscesses. Osseous destructive changes centered at the symphysis
pubis
--- NOTE | 2025-03-21 10:46 | CM ---
MALOU spoke with Kathryn at [facility] to confirm IV abx teaching for today. Per Kathryn, she will be in the hospital around 1PM today for teaching with Demond.
Pt has no drug copay and 80% coverage for supplies and nursing care. CM will make him aware of the costs associated with IV ABX and provide IMM.
Plan: Discharge to home with IV ABX with [facility].
[facility] Report: [phone]
[facility]
--- NOTE | 2025-03-21 10:49 | W.PN.HOSP.TC ---
Today's Communication/Plan
-
dc
Assessment / Plan
Assessment / Plan
74yo M with PMHx of Prostate CA on Zytiga, adrenal insufficiency 2/2 chemo on Prednisone, Hypothyroidism, HTN, HLD came with acute onset of L knee pain, found large suprapatellar effusion in ED that was tapped and fluid showed abudant clotting so
WBC could not be calculated. Also febrile with elevated WBC count on admission so started on Ancef for septic arthritis, however Orthopedics consider it less likely, since patient recently increased weight baring on LLE due to R hip problems.
Followed in the [facility]. LAter found with abductor muscle abscess s/p IRAD drain with Cx growing strep Viridans, so ID recommended Ceftriaxone IV till 04/27/24. CM arranged home infusions and patient is medically stable for d/c home
A/P:
#Abductor muscle abscess
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
Additional information obtained by Ortho from [facility], where patient was followed for his R hip pain. Recent MRI showed OM of pubic symphysis and associated pelvic collection, possibly related to the prostate Sx that was previously done by
Tyesha in [facility] [place]. Most likely it is a source of infection. CT scan reasonable for fluid collection. Will consult Urology as per suggestion from Ortho. Request info for MRI reading from [facility]
CT showed Two rim-enhancing fluid collections in the right adductor musculature measuring up to 3.5 cm and 1.8 cm, most compatible with intramuscular abscesses. IRAD for drain on 03/17/25 - Cx strep viridans
CT with Osseous destructive changes centered at the symphysis pubis.
Concern for immunocompromised patient with Hx of CA and chronic Prednisone
ID consult: drain abscess, concern for urologic source, but as per Urology eval with absent positive UA, no signs of inflammation around Urogenital organs - unlikely.
ceftriaxone
#L knee acute monoarthritis most likely 2/2 OA
almost resolved
Ortho evaluated
immobilizer as needed - patient does not need it anymore
Bcx and joint fluid Cx NTD
#Asymptomatic bacteriuria
no urinary symptoms reported
follow Ucx
#Contact dermatitis with rash on back
hypoallergenic sheets
Zyrtec - pruritus resolved
#Prostate CA
#Urinary strictures on self-cath
#Iatrogenic adrenal insufficiency
#Hypothyroidism
#HLD
#Essential HTN
PAtient requesting Zytiga with Synthroid strictly at 6:30am and the rest of meds at 8am with food.
COnt home meds
watch for retention
cont straight cath as needed
DVT ppx lovenox
FUll code
I have spent at least 36min reviewing chart, test results, communication with consultants and providing direct patient care
Anticipated Discharge: Today
Subjective/Interval History
-
Date of Service: March 21, 2025
Objective Data
-
Vital Signs:
Vital Signs
Temp Pulse Resp BP Pulse Ox
98.6 F 79 18 131/65 97
03/21/25 08:25 03/21/25 08:25 03/21/25 08:25 03/21/25 08:25 03/21/25 08:35
I&O
03/20/25 03/21/25 03/22/25
06:59 06:59 06:59
Intake Total 1500 / 1500 480 / 480
Output Total 1250 / 1250 425 / 425
Balance 250 / 250 480 / 480 -425 / -425
Review of Systems
-
History Source: Patient
All other systems: Reviewed and negative
Physical Exam
-
General: No Apparent Distress
HEENT: Normocephalic
Respiratory: Clear to Auscultation
GI: Soft, Nontender and Nondistended
Musculoskeletal: No Clubbing, No Cyanosis and No Edema
Neuro: Awake, Alert, Oriented and AO x 3
Psych: Calm
--- NOTE | 2025-03-21 10:55 | W.DCSUMMARY ---
Discharge Summary
Discharge Data
Date of Admission: 03/14/25
Date of Discharge: 03/21/25
-
Pending Results: No
Hospital Course
74yo M with PMHx of Prostate CA on Zytiga, adrenal insufficiency 2/2 chemo on Prednisone, Hypothyroidism, HTN, HLD came with acute onset of L knee pain, found large suprapatellar effusion in ED that was tapped and fluid showed abudant clotting so
WBC could not be calculated. Also febrile with elevated WBC count on admission so started on Ancef for septic arthritis, however Orthopedics consider it less likely, since patient recently increased weight baring on LLE due to R hip problems.
Followed in the [facility]. LAter found with abductor muscle abscess s/p IRAD drain with Cx growing strep Viridans, so ID recommended Ceftriaxone IV till 04/27/24. CM arranged home infusions and patient is medically stable for d/c home
I have spent at least 36min reviewing chart, test results, communication with consultants and providing direct patient care
Patient was managed for:
#Abductor muscle abscess
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
#L knee acute monoarthritis most likely 2/2 OA
#Asymptomatic bacteriuria
#Contact dermatitis with rash on back
hypoallergenic sheets
#Prostate CA
#Urinary strictures on self-cath
#Iatrogenic adrenal insufficiency
#Hypothyroidism
#HLD
#Essential HTN
Discharge Plan
-
Patient Disposition: Home (Routine Discharge)
Discharge Diagnosis/Procedures: pubic OM, abductor muscle abscess
Diet: Regular
Activity: As tolerated
Driving Restrictions: As prior to admission
Blood Work: Follow weekly CBC, CMP, ESR, CRP with PCP/infection disease
Referrals:
Mane Simpson MD [Family Provider, Family Practice]
Eugenia Gilbert MD [Active, Infectious Diseases] - in three to four weeks
Additional Discharge Medication Instructions: Continue ceftriaxone [id number] x 6 weeks through 04/27/25.
Prescriptions:
New
ceftriaxone 2 gram Recon Soln
2,000 mg IV Q24H Qty: 0 0RF
Continued
levothyroxine 175 mcg tablet
175 mcg PO MOTUWETHFRSA@0600
prednisone 5 mg tablet
5 mg PO DAILY
simvastatin 20 mg tablet
20 mg PO QPM
lisinopril 40 mg tablet
40 mg PO DAILY
abiraterone [Zytiga] 250 mg Tablet
1,000 mg PO DAILY@0600
Rx Instructions:
must be taken on empty stomach, at least 1 hr before or 2 hrs after a meal/food. takes at 6am
patient can take his own med
amlodipine 5 mg tablet
5 mg PO DAILY
calcium carbonate-vitamin D3 600 mg-5 mcg (200 unit) Tablet
1 tab PO DAILY
Discharge Orders:
Discharge Patient (As Directed); Ordered 03/21/25
Ordered By: Catarino Kenney
Discharge Date and Time
Print Language: GREENLANDIC
[2025-03-21] MEDS: STERILE WATER FOR INJECTION 20 ML IV (11:41)
[2025-03-21] MEDS: ROCEPHIN 2000 MG IV (11:41)
--- NOTE | 2025-03-21 12:01 | PTCARENOTE ---
Pt given his own Ozempic yesterday. He does not want to take the insulin
[2025-03-21 14:13] VITALS: BP 137/71
== END 2025-03-21 14:24 | disposition home or self-care (01) | DRG 501 ==
LOC: 4 EAST ACU 17:57
PROVIDERS: Radiology Diagnostic Radiology; Radiology Neuroradiology; Registered Nurse; Student in an Organized Health Care Education/Training Program; ADMITTING PHYSICIAN Internal Medicine; ATTENDING PHYSICIAN Internal Medicine; CONSULT PHYSICIAN Orthopaedic Surgery; EMERGENCY PHYSICIAN Student in an Organized Health Care Education/Training Program; FAMILY PHYSICIAN Family Medicine; OTHER PHYSICIAN Internal Medicine Infectious Disease
PROC: 0S9D3ZX Drainage of Left Knee Joint, Percutaneous Approach, Diagnostic (ICD-10-PCS; 2025-03-14)
PROC: 0K9 Muscles, Drainage (ICD-10-PCS; 2025-03-17)
PROC: 02HV33Z Insertion of Infusion Device into Superior Vena Cava, Percutaneous Approach (ICD-10-PCS; 2025-03-20)
DX: M60.051 Infective myositis, right thigh (principal); D84.9 Immunodeficiency, unspecified; M86.8X8 Other osteomyelitis, other site; E27.3 Drug-induced adrenocortical insufficiency; E03.9 Hypothyroidism, unspecified; I10 Essential (primary) hypertension; I27.20 Pulmonary hypertension, unspecified; M25.462 Effusion, left knee; N35.919 Unspecified urethral stricture, male, unspecified site; M17.12 Unilateral primary osteoarthritis, left knee; L25.9 Unspecified contact dermatitis, unspecified cause; E78.00 Pure hypercholesterolemia, unspecified; R82.71 Bacteriuria; B95.4 Other streptococcus as the cause of diseases classified elsewhere; Z90.79 Acquired absence of other genital organ(s); Z85.46 Personal history of malignant neoplasm of prostate; Z79.890 Hormone replacement therapy; Z79.899 Other long term (current) drug therapy; Z79.52 Long term (current) use of systemic steroids; Z92.3 Personal history of irradiation; Z92.21 Personal history of antineoplastic chemotherapy
CPT/HCPCS: 10030; 20610; 71045; 73564; 74177; 80048; 80053; 80202; 81003; 81015; 82248; 82550; 82945; 83605; 83615; 84443; 85025; 85027; 85045; 85652; 86038; 86039; 86140; 86430; 86618; 87015; 87040; 87070; 87075; 87077; 87086; 87205; 87502; 87811; 89051; 89060; 96374; 97110; 97116; 97162; 97167; 97530; 99152; 99153; 99285; J0878; Q9967

== ENCOUNTER 2025-04-03 17:18 | Inpatient (IN) | payer OTHER, SELFPAY ==
[2025-04-03] VITALS (10 sets, daily range): BP systolic 114–155; BP diastolic 58–70; BMI 30.1; BMI 29.7
[2025-04-03 11:53] LABS: Hematocrit 34.3 % (39.0-52.0); Hemoglobin 11.6 g/dL (13.0-18.0); Mean Corp Hgb Conc. 33.8 g/dL (33.0-37.0); Mean Corpuscular Volume 81.7 fL (80.0-94.0); Nucleated Red Blood Cells % 0 % (-); Platelet Count 327 10^3/uL (130-400); Red Cell Dist. Width 13.8 % (11.5-14.5)
--- NOTE | 2025-04-03 12:08 | ED.GENMED ---
History of Present Illness
<Marcella Alvarez BYPRODUCTS PUMP OPERATOR - Last Filed: 04/04/25 16:04>
General
Chief Complaint: Fever
Source: patient and previous hospital records
Exam Limitations: none
Time Seen by Provider: 04/03/25 12:06
Nursing documentation reviewed up to this point in time: agreed with
History of Present Illness
History of Present Illness:
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
began two days ago, with the left knee being more painful. Pain in the left knee led to overcompensation, resulting in right knee pain as well. Two weeks ago, saw Dr. Waterman and the left knee was drained by IR. Knee pain is 6/10 when still, 10/10
with any movement. He presents with fever 101.5
Pt states the site of the R abductor muscle abscess is not painful. No redness or swelling or pain at PICC site
Denies n/v/d/c. Denies CP or SOB or abdominal pain.
Other history includes HTN, HLD, hypothyroid, iatrogenic adrenal insufficiency, urinary strictures where he self caths, prostate cancer, chronic low-dose steroid therapy
Past History
<Marcella Alvarez [employer]PR[employer] PUMP OPERATOR - Last Filed: 04/04/25 16:04>
Past History
ED Past Medical History: Cancer, HTN, Hypercholesterolemia and Other (self catheterizes due to urinary stricture)
ED Past Surgical History: Urological (prostatectomy)
Social History
Tobacco: Non-smoker
Alcohol: None
Drug: None
Personal:
Living: with family
Employment: Other
Family History
Family History: Other
Review of Systems
<Marcella Alvarez [employer] PUMP OPERATOR - Last Filed: 04/04/25 16:04>
Review of Systems
Allergies reviewed?: Yes
All Other Systems: ROS reviewed and negative except as documented in HPI and ROS
Phy Exam
<Marcella Alvarez, [employer] PUMP OPERATOR - Last Filed: 04/04/25 16:04>
Physical Exam
Physical Exam:
GENERAL: No acute distress. A&Ox3.
CONSTITUTIONAL: Temp 101 .2
EYES: clear, conjunctivae normal
ENMT: moist mucus membranes, Pharynx nl
RESPIRATORY: Regular respirations, nonlabored, lungs clear.
CARDIOVASCULAR: Regular rate and rhythm, no murmurs, no rubs.
GI: Soft, nontender, normal BS
MUSCULOSKELETAL: Unable to move either leg due to significant bilateral knee pain and swelling. No redness or warmth.Distal n/v intact. Well perfused. R groin area nontender, pelvic rock neg
SKIN: Warm, dry, pink. PICC site with no redness, swelling, drainage, tenderness. Looks good.
PSYCH: Normal mood and affect. Well kept, interactive and appropriate
NEUROLOGIC: Awake, alert and oriented. No focal neurological deficits
Sepsis
<Marcella Alvarez, [employer] PUMP OPERATOR - Last Filed: 04/04/25 16:04>
Sepsis Screening
Sepsis Assessment: Sepsis
Sepsis Screen
Sepsis Screen: Sepsis
Date: 04/04/25
Time: 16:04
Course
<Marcella Alvarez, [employer] PUMP OPERATOR - Last Filed: 04/04/25 16:04>
Orders/Labs/Results
Orders:
Orders
04/03/25 11:38
Comprehensive Metabolic Panel Urgent
Lactic Acid Urgent
Uric Acid Urgent
Blood Culture Urgent
KATHLEEN Source: Blood/Venous
Specimen Description:
04/03/25 11:39
CRP [C-Reactive Protein] Urgent
Complete Blood Count/With Diff Urgent
Erythrocyte Sed Rate Urgent
04/03/25 11:44
Blood Culture Urgent
KATHLEEN Source: Blood/Venous
Specimen Description:
04/03/25 12:52
Acetaminophen [Tylenol] 1,000 mg .ROUTE .STK-MED ONE
04/03/25 12:53
Acetaminophen [Tylenol] 1,000 mg PO NOW STA
04/03/25 13:42
0.9% Sodium Chloride 1000 ml [Nss] 2,700 ml IV NOW STA
04/03/25 13:44
CT Pelvis With Iv Contrast Urgent
Comment:
Reason For Exam: recent abscess R abductor OM symph pubis, now SIRS
04/03/25 14:06
COVID-19 Antigen Urgent
Source: Nasal Swab
Influenza A+B Rapid Molecular Urgent
KATHLEEN Source: Nasal Swab
Specimen Description:
04/03/25 14:13
Add On- LAB Routine
Tests Added?: uric acid
04/03/25 14:35
HYDROmorphone [Dilaudid] 1 mg IV NOW STA
04/03/25 14:58
Body Fluid Cell Count Urgent
What is the Body Fluid: joint
Date Specimen was Collected: 04/03/25
Time Specimen was Collected: 14:51
Comment: with DIFF
Body Fluid Crystals Urgent
What is the Body Fluid: joint
Date Specimen was Collected: 04/03/25
Time Specimen was Collected: 14:51
Fluid Culture with Gram Stain Urgent
KATHLEEN Source: Joint Fluid
Specimen Description:
Date Specimen was Collected: 04/03/25
Time Specimen was Collected: 14:51
Comment: LEFT
04/03/25 Dinner
Regular
At Your Request: Full Participation
Does patient need a safe tray?: No
04/03/25 15:03
Lyme PCR, DNA [S] Urgent
04/03/25 16:32
Admit/Transfer Patient As Directed
Co-Sign Provider:
Level of Care: Inpatient admission
Assign to:: Medical/Surgical
Physician / Group: Hospitalist
Diagnosis: Fever, sepsis
Reason for Hospitalization: Fever, Sepsis
Expected length of stay greater than two midnights?: Yes
ELOS- Estimated Length of Stay in days: 5
I certify the patient meets the requirements for IP care: Yes
PRN Pain Medication Management As Directed
May give lesser potent ordered pain med per pt: Yes
preference::
Protocol:: Medication orders for pain may be administered in a
manner that supports deferring to patient preference
when the pt is:
- Requesting an ordered lesser potent pain medication.
Least to most potent pain medications are defined
as: acetaminophen < NSAID < tramadol < opioids
(morphine, oxycodone, hydromorphone).
- Requesting a lesser dose of the same medication IF
ORDERED.
- Requesting a less intrusive route of administration
if both routes are prescribed by the provider (PO <
IV).
04/03/25 16:34
Code Status As Directed
Resuscitation Status: Full Code
04/03/25 16:51
Body Fluid Cell Count Urgent
What is the Body Fluid: joint
Date Specimen was Collected: 04/03/25
Time Specimen was Collected: 16:29
Comment: with DIFF, This is from RIGHT knee, previous was from Left knee
Body Fluid Crystals Urgent
What is the Body Fluid: joint
Date Specimen was Collected: 04/03/25
Time Specimen was Collected: 16:29
Comment: This is from RIGHT knee, previous was from Left knee
Urinalysis Reflex To Culture Urgent
Date Specimen was Collected: 04/03/25
Time Specimen was Collected: 14:51
Urine Microscopic Reflex Cult Urgent
Fluid Culture with Gram Stain Urgent
KATHLEEN Source: Joint Fluid
Specimen Description:
Date Specimen was Collected: 04/03/25
Time Specimen was Collected: 16:29
Comment: This is from RIGHT knee, previous was from Left knee
Urine Culture Urgent
KATHLEEN Source: U
Specimen Description:
Date Specimen was Collected: 04/03/25
Time Specimen was Collected: 14:51
04/03/25 19:38
0.9% Sodium Chloride 1000 ml [Nss] 1,000 ml IV 200 mls/hr
Bisacodyl [Dulcolax] 10 mg RECTAL [id number] PRN
Docusate W/Senna [Senokot-S] 1 tablet PO BIDPRN PRN
Polyethylene Glycol Powder [Miralax] 17 grams PO DAILYPRN PRN
04/03/25 19:38
Activity As Directed
Activity Level: With Assistance
Pneumatic Compression Sleeves As Directed
Type: Knee high
Vital Signs As Directed
Frequency: Per unit guidelines
DX Deep Vein Thrombosis Video Routine
04/03/25 20:00
Atorvastatin [Lipitor] 10 mg PO QPM
CefTRIAXone [Rocephin] 2,000 mg IV Q24H
04/04/25 03:44
Basic Metabolic Panel IN AM
Complete Blood Count/No Diff IN AM
Magnesium IN AM
04/04/25 06:00
Levothyroxine [Synthroid] 175 mcg PO MOTUWETHFRSA@0600
abiraterone [Zytiga] 1,000 mg PO DAILY@0600
04/04/25 08:00
Amlodipine [Norvasc] 5 mg PO DAILY
Calcium Carbonate [Oscal Manas 500] 500 mg PO DAILY
Lisinopril [Zestril] 40 mg PO DAILY
Prednisone [Deltasone] 5 mg PO DAILY
Abnormal Lab Results
04/03/25 04/03/25 04/03/25
11:38 11:39 16:51
WBC 18.1 H 10^3/uL
(4.8-10.8)
RBC 4.20 L 10^6/uL
(4.70-6.10)
Hgb 11.6 L g/dL
(13.0-18.0)
Hct 34.3 L %
(39.0-52.0)
Abs Immat Gran (auto) 0.1 H 10^3/uL
(0-0.05)
Absolute Neuts (auto) 16.0 H 10^3/uL
(1.4-6.5)
Absolute Lymphs (auto) 0.6 L 10^3/uL
(1.2-3.4)
Absolute Monos (auto) 1.4 H 10^3/uL
(0.1-0.6)
Neutrophils % 88.6 H %
(42.2-75.2)
Lymphocytes % 3.0 L %
(20.5-51.1)
ESR 61 H mm/hour
(0-20)
Sodium 132 L mmol/L
(135-145)
Carbon Dioxide 16 L mmol/L
(22-30)
Glucose 189 H mg/dl
(70-99)
Lactic Acid 2.7 H mmol/L
(0.7-2.0)
Uric Acid 3.1 L mg/dl
(3.5-8.5)
Total Bilirubin 2.3 H mg/dl
(0.2-1.3)
C-Reactive Protein 175.50 H mg/L
(0.0-10.00)
Urine Ketones 1+ A
(Negative)
Ur Occult Blood Reflex 4+ A
(Negative)
Leukocyte Esterase Rfl 2+ A
(Negative)
Urine RBC 3-6 A /HPF
(0-2)
Urine WBC (Reflex) 50-60 A /HPF
(0-5)
Urine Bacteria (Reflex) Moderate A
(Negative)
Urine Albumin (Reflex) 2+ A
(Neg - Trace)
04/03/25 11:39
04/03/25 11:38
Vital Signs
Initial and Last Documented VS:
Initial Vital Signs
Temp Pulse Resp BP Pulse Ox
101.5 F H 99 16 141/62 97
04/03/25 11:36 04/03/25 11:36 04/03/25 11:36 04/03/25 11:36 04/03/25 11:36
Last Documented Vital Signs
Temp Pulse Resp BP Pulse Ox
101.8 F H 92 16 152/76 96
04/04/25 15:00 04/04/25 15:00 04/04/25 15:00 04/04/25 15:00 04/04/25 15:00
Regional Account Executive consulted with Physician
Regional Account Executive consulted with physician?: Yes
Name of Physician Consulted: Suzan
<Kristie Mares, DO - Last Filed: 04/03/25 14:05>
Orders/Labs/Results
Orders:
Orders
04/03/25 11:38
Comprehensive Metabolic Panel Urgent
Lactic Acid Urgent
Uric Acid Urgent
Blood Culture Urgent
KATHLEEN Source: Blood/Venous
Specimen Description:
04/03/25 11:39
CRP [C-Reactive Protein] Urgent
Complete Blood Count/With Diff Urgent
Erythrocyte Sed Rate Urgent
04/03/25 11:44
Blood Culture Urgent
KATHLEEN Source: Blood/Venous
Specimen Description:
04/03/25 12:52
Acetaminophen [Tylenol] 1,000 mg .ROUTE .STK-MED ONE
04/03/25 12:53
Acetaminophen [Tylenol] 1,000 mg PO NOW STA
04/03/25 13:42
0.9% Sodium Chloride 1000 ml [Nss] 2,700 ml IV NOW STA
04/03/25 13:44
CT Pelvis With Iv Contrast Urgent
Comment:
Reason For Exam: recent abscess R abductor OM symph pubis, now SIRS
04/03/25 14:06
COVID-19 Antigen Urgent
Source: Nasal Swab
Influenza A+B Rapid Molecular Urgent
KATHLEEN Source: Nasal Swab
Specimen Description:
04/03/25 14:13
Add On- LAB Routine
Tests Added?: uric acid
04/03/25 14:35
HYDROmorphone [Dilaudid] 1 mg IV NOW STA
04/03/25 14:58
Body Fluid Cell Count Urgent
What is the Body Fluid: joint
Date Specimen was Collected: 04/03/25
Time Specimen was Collected: 14:51
Comment: with DIFF
Body Fluid Crystals Urgent
What is the Body Fluid: joint
Date Specimen was Collected: 04/03/25
Time Specimen was Collected: 14:51
Fluid Culture with Gram Stain Urgent
KATHLEEN Source: Joint Fluid
Specimen Description:
Date Specimen was Collected: 04/03/25
Time Specimen was Collected: 14:51
Comment: LEFT
04/03/25 Dinner
Regular
At Your Request: Full Participation
Does patient need a safe tray?: No
04/03/25 15:03
Lyme PCR, DNA [S] Urgent
04/03/25 16:32
Admit/Transfer Patient As Directed
Co-Sign Provider:
Level of Care: Inpatient admission
Assign to:: Medical/Surgical
Physician / Group: Hospitalist
Diagnosis: Fever, sepsis
Reason for Hospitalization: Fever, Sepsis
Expected length of stay greater than two midnights?: Yes
ELOS- Estimated Length of Stay in days: 5
I certify the patient meets the requirements for IP care: Yes
PRN Pain Medication Management As Directed
May give lesser potent ordered pain med per pt: Yes
preference::
Protocol:: Medication orders for pain may be administered in a
manner that supports deferring to patient preference
when the pt is:
- Requesting an ordered lesser potent pain medication.
Least to most potent pain medications are defined
as: acetaminophen < NSAID < tramadol < opioids
(morphine, oxycodone, hydromorphone).
- Requesting a lesser dose of the same medication IF
ORDERED.
- Requesting a less intrusive route of administration
if both routes are prescribed by the provider (PO <
IV).
04/03/25 16:34
Code Status As Directed
Resuscitation Status: Full Code
04/03/25 16:51
Body Fluid Cell Count Urgent
What is the Body Fluid: joint
Date Specimen was Collected: 04/03/25
Time Specimen was Collected: 16:29
Comment: with DIFF, This is from RIGHT knee, previous was from Left knee
Body Fluid Crystals Urgent
What is the Body Fluid: joint
Date Specimen was Collected: 04/03/25
Time Specimen was Collected: 16:29
Comment: This is from RIGHT knee, previous was from Left knee
Urinalysis Reflex To Culture Urgent
Date Specimen was Collected: 04/03/25
Time Specimen was Collected: 14:51
Urine Microscopic Reflex Cult Urgent
Fluid Culture with Gram Stain Urgent
KATHLEEN Source: Joint Fluid
Specimen Description:
Date Specimen was Collected: 04/03/25
Time Specimen was Collected: 16:29
Comment: This is from RIGHT knee, previous was from Left knee
Urine Culture Urgent
KATHLEEN Source: U
Specimen Description:
Date Specimen was Collected: 04/03/25
Time Specimen was Collected: 14:51
04/03/25 19:38
0.9% Sodium Chloride 1000 ml [Nss] 1,000 ml IV 200 mls/hr
Bisacodyl [Dulcolax] 10 mg RECTAL [id number] PRN
Docusate W/Senna [Senokot-S] 1 tablet PO BIDPRN PRN
Polyethylene Glycol Powder [Miralax] 17 grams PO DAILYPRN PRN
04/03/25 19:38
Activity As Directed
Activity Level: With Assistance
Pneumatic Compression Sleeves As Directed
Type: Knee high
Vital Signs As Directed
Frequency: Per unit guidelines
DX Deep Vein Thrombosis Video Routine
04/03/25 20:00
Atorvastatin [Lipitor] 10 mg PO QPM
CefTRIAXone [Rocephin] 2,000 mg IV Q24H
04/04/25 03:44
Basic Metabolic Panel IN AM
Complete Blood Count/No Diff IN AM
Magnesium IN AM
04/04/25 06:00
Levothyroxine [Synthroid] 175 mcg PO MOTUWETHFRSA@0600
abiraterone [Zytiga] 1,000 mg PO DAILY@0600
04/04/25 08:00
Amlodipine [Norvasc] 5 mg PO DAILY
Calcium Carbonate [Oscal Manas 500] 500 mg PO DAILY
Lisinopril [Zestril] 40 mg PO DAILY
Prednisone [Deltasone] 5 mg PO DAILY
Abnormal Lab Results
04/03/25 04/03/25 04/03/25
11:38 11:39 16:51
WBC 18.1 H 10^3/uL
(4.8-10.8)
RBC 4.20 L 10^6/uL
(4.70-6.10)
Hgb 11.6 L g/dL
(13.0-18.0)
Hct 34.3 L %
(39.0-52.0)
Abs Immat Gran (auto) 0.1 H 10^3/uL
(0-0.05)
Absolute Neuts (auto) 16.0 H 10^3/uL
(1.4-6.5)
Absolute Lymphs (auto) 0.6 L 10^3/uL
(1.2-3.4)
Absolute Monos (auto) 1.4 H 10^3/uL
(0.1-0.6)
Neutrophils % 88.6 H %
(42.2-75.2)
Lymphocytes % 3.0 L %
(20.5-51.1)
ESR 61 H mm/hour
(0-20)
Sodium 132 L mmol/L
(135-145)
Carbon Dioxide 16 L mmol/L
(22-30)
Glucose 189 H mg/dl
(70-99)
Lactic Acid 2.7 H mmol/L
(0.7-2.0)
Uric Acid 3.1 L mg/dl
(3.5-8.5)
Total Bilirubin 2.3 H mg/dl
(0.2-1.3)
C-Reactive Protein 175.50 H mg/L
(0.0-10.00)
Urine Ketones 1+ A
(Negative)
Ur Occult Blood Reflex 4+ A
(Negative)
Leukocyte Esterase Rfl 2+ A
(Negative)
Urine RBC 3-6 A /HPF
(0-2)
Urine WBC (Reflex) 50-60 A /HPF
(0-5)
Urine Bacteria (Reflex) Moderate A
(Negative)
Urine Albumin (Reflex) 2+ A
(Neg - Trace)
04/03/25 11:39
04/03/25 11:38
Vital Signs
Initial and Last Documented VS:
Initial Vital Signs
Temp Pulse Resp BP Pulse Ox
101.5 F H 99 16 141/62 97
04/03/25 11:36 04/03/25 11:36 04/03/25 11:36 04/03/25 11:36 04/03/25 11:36
Last Documented Vital Signs
Temp Pulse Resp BP Pulse Ox
101.8 F H 92 16 152/76 96
04/04/25 15:00 04/04/25 15:00 04/04/25 15:00 04/04/25 15:00 04/04/25 15:00
Procedures
<Marcella Alvarez, [employer] PUMP OPERATOR - Last Filed: 04/04/25 16:04>
Incision/Drainage/Joint Aspiration
Left Lateral Knee:
Anethesia: 1% Lidocaine with Epi
Preparation: cleaned with alcohol wipe
Type of procedure: aspiration
Nature of site: other (effusion)
How much fluid was obtained?: number in mls (5)
Fluid description: serosanguinous
Treatment: bandaid applied
Right Lateral Knee:
Anethesia: 1% Lidocaine with Epi
Preparation: cleaned with alcohol wipe
Type of procedure: aspiration
Nature of site: other (effusion)
How much fluid was obtained?: number in mls (20)
Fluid description: clear and straw colored
Treatment: bandaid applied
<Marcella Alvarez, [employer] PUMP OPERATOR - Last Filed: 04/04/25 16:04>
MDM/Problems Addressed
Differential Diagnosis Includes:
sepsis, SIRS, UTI, bacteremia, septic knee joint
MDM/Problems Addressed:
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
began two days ago, with the left knee being more painful. Pain in the left knee led to overcompensation, resulting in right knee pain as well. He is unable to walk due to knee pain.
Two weeks ago, saw Dr. Waterman for left knee pain and the left knee was drained by IR. Knee pain is 6/10 when still, 10/10 with any movement. He presents with fever 101.5
Pt states the site of the R abductor muscle abscess is not painful. No redness or swelling or pain at PICC site
Denies n/v/d/c. Denies CP or SOB or abdominal pain.
Immunocompromised patient with history of cancer and chronic prednisone
Other history includes HTN, HLD, hypothyroid, iatrogenic adrenal insufficiency, urinary strictures where he self caths, prostate cancer
Temp 101.5
CBC: WBC 18.1 with shift
CMP: pending
Lactic acid 2.7
ESR 61
Covid neg
Flu neg
PICC line site looks good no sign of infection
Dr. Gilbert ID in. Requests continue Rocephin, no change until ortho evaluates the knees
Immunocompromised patient with history of cancer and chronic prednisone here with bilateral knee pain which started 2 days ago, patient is unable to flex the knee at all due to pain. There is no redness or warmth or sign of infection
Dr. Mares in to evaluate.
Unsure of the cause of infectious symptoms, although he straight caths, not likely urine as he's been on Rocephin, will check u/a regardless
Had unremarkable CXR on 03/20 and has had no cough or URI symptoms, no indication to repeat.
Ortho consult to Dr. Diaz for knees, states 'I spoke with Rafaela. Sounds like the infection issue is a urology/IR managed thing. Knees were just swollen and negative for bacteria 2 weeks ago.' The IR drainage of abscess, is not the issue today.
Worsening bilateral knee swelling and pain are the issue for him today
Aspirated 5 ml serosanguineous fluid from left knee, I expected more due to fluctuance and fluid but got no more. Fluid sent to lab, results pending.
I will leave it up to Hospitalist to consult ortho if needed.
3:00 p.m.
Plan: Admit: SIRS, continue Rocephin, Blood cultures pending. U/A pending. Knee aspirant results pending.
Medicated for pain
Hospitalist notified of admission.
Pt remains stable.
<Marcella Alvarez, [employer] PUMP OPERATOR - Last Filed: 04/04/25 16:04>
*Pulse Oximetry
SaO2: 95
Oxygen Mode of Delivery: Room air
Patient hypoxic: no
*Critical Care Note
Total Time (30-74mins, 75-104mins- exclusive of procedures): Not Applicable
ED Attending Note
<Marcella Alvarez, [employer] PUMP OPERATOR - Last Filed: 04/04/25 16:04>
-
Portions of this chart may have been created with voice recognition software.� Occasional wrong word or��sound alike� substitutions may have occurred due to the inherent limitations of voice recognition software.
<Kristie Mares DO - Last Filed: 04/03/25 14:05>
ED Attending Note
Patient seen and examined by attending physician: Yes
I performed the substantive portion of visit, reviewed & personally made and approve the management plan that is documented in note by myself or SUKHWINDER.: Yes
I performed a history and physical exam of patient and discussed management with resident, I reviewed resident's note and agree with documented findings and plan of care.: Yes
ED Attending Note:
74-year-old male with history of hypertension hyperlipidemia presenting for fever and knee pain. Patient presents from home with bilateral knee pain. Patient with complicated recent hospital admission from 03/14 to 03/21. At that time patient had
presented with left knee pain. There was concern for septic arthritis, patient was admitted on antibiotics. Ultimately with orthopedics in consultation, septic arthritis thought to be less likely. Patient was discovered to have a abscess to the
right adductor muscle with additional concern for osteomyelitis to the symphysis pubis. Patient had been started on antibiotics, discharged on a PICC line, has been receiving ceftriaxone in consultation with infectious disease. 2 days ago, started
to have increased pain to his knees, now the right knee as well. Does note that because of the issues with the left knee, has been favoring the right knee so is unsure if that is contributing. He has now unable to ambulate secondary to the pain.
Patient otherwise denies cough. He denies abdominal pain. Vital signs on arrival are significant for fever.
On exam patient is resting comfortably, no acute distress. Unremarkable cardiac and pulmonary exam. No tenderness to the abdomen. No significant tenderness to the pelvis. However, patient does note that he was not having significant pain to the
pelvis with recent diagnosis of intramuscular abscess and osteomyelitis. On examination of the knees, bilateral suprapatellar swelling with suspicion for suprapatellar effusions. Limited range of motion secondary to pain. No erythema or warmth.
Swelling appears to be symmetric bilaterally with generalized tenderness on palpation. Given bilateral nature and absence of any erythema, lower suspicion for septic arthritis. Unclear etiology of presenting fever. Infectious disease has been
consulted, did come to evaluate patient at bedside and recommended continuation of ceftriaxone until cultures result. Labs obtained prior to my assessment, leukocytosis with elevated lactic acid, meeting sepsis criteria. Will start IV fluids,
blood culture sent. Will discuss with orthopedics regarding bilateral knee swelling. Will also repeat imaging of the abdomen and pelvis to ensure no interval worsening of fluid collection. Plan for admission.
Discharge Plan
Departure
Patient Disposition: Admit
Date of Disposition: 04/03/25
Time of Disposition: 15:06
Admit to: Med/Surg
Presentation/result/management discussed w/ accepting MD/DO: Hospitalist
Condition: Fair
Discharge Problem:
SIRS (systemic inflammatory response syndrome), Swelling of both knees, Acute bilateral knee pain
Interventions
Interventions:
*General Assessment Last Done: 04/03/25 11:40
*Neglect/Abuse Screening Last Done: 04/03/25 11:40
*ED COVID-19 Vaccine History Last Done: 04/03/25 11:40
*ED Influenza Vaccine History Last Done: 04/03/25 11:40
[facility] Risk Assessment Tool Last Done: 04/03/25 11:40
*Risk Screen - Suicide (C-SSRS) Last Done: 04/03/25 11:40
*Nursing Disposition Last Done: 04/03/25 19:50
ED- Neurological Assessment Last Done: 04/03/25 11:40
ED-Skin Assessment Last Done: 04/03/25 11:40
Discharge Date and Time
Discharge Date/Time: 04/03/25 19:52
[2025-04-03] MEDS: TYLENOL 1000 MG PO (12:54)
--- NOTE | 2025-04-03 13:49 | CON.ID ---
Consultation
-
Date/Time Consultation Requested: April 03, 2025 133
Date/Time Consultation Performed: April 03, 20251329
Requesting Provider: RUDI Quezada
Performing Provider: Dr. Eugenia Gilbert
Reason for Consultation: Fever, bilateral knee pain
Chief Complaint / Past History
Chief Complaint
Severe bilateral knee pain and swelling
History of Present Illness
74-year-old male known to me with history of hypertension, prostate cancer status post prostatectomy, XRT, history of urethral implant, recent approximately 5-week history of right groin pain/difficulty with ambulation, hospitalized 03/14 - 03/21 due
to acute left knee pain -> synovial fluid cx neg, neg crystals. Outside MRI and inpatient CT abdomen/pelvis showed 2 abscesses in the right adductor musculature, osseous destructive changes at the symphysis pubis. IR aspirated the abscess which
grew viridans strep. Patient was discharged to home to complete 6 weeks of IV ceftriaxone. Patient reports he was doing well at home. PT was very pleased with his progress on Saturday 03/31. However on Thursday, he developed acute onset of both
right and left knee pain with effusion. He had difficulty bearing weight. Denies injury. He states his 85 pound dog jumped and landed on his left knee prior to the pain. He then started having fevers and chills and therefore he presented to the
ER this morning. He left a message at my office regarding coming to the ER. In ER temperature 101.5, white count 18.1. He denies N/V,diarrhea. No headache, sinus congestion, or sore throat. No cough or shortness of breath. No urine symptoms.
No ill contacts. No PICC site pain or swelling. The previous R groin pain remains resolved.
Past History
Additional Past Medical History:
Hypertension
Hypothyroidism
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
prostate cancer status post prostatectomy and radiation 2007, with elevated PSA 3 years ago currently on Zytiga/low-dose prednisone
History of urethral implant/prostate sling procedure 2011
Urethral stricture requiring self catheterization twice a week for urethral dilation
Allergy History:
No Known Allergies Allergy (Verified 06/08/24 17:16)
Medications Reviewed: Yes
Current Antibiotics:
Ceftriaxone 2g IV q24h.
Social History
Tobacco: Non-Smoker
Alcohol: None
Drug: None
Personal:
Living: With Family
Family History
Family History: Not Pertinent
Review of Systems
Review of Systems
General: Fever and Chills
HEENT: Negative Sinus Problems, Headache or Pharyngitis
Cardiovascular: Negative Chest Pain or Dyspnea
Respiratory: Negative Dyspnea or Cough
Gasteroenterology: Negative Nausea, Vomiting or Diarrhea
Genital / Urological: Negative Dysuria or Flank Pain
Endocrine: Weakness
Musculoskeletal: Joint Swelling and Arthralgias
Skin / Hair / Nails: Negative Rash
Neurological: Negative Dizziness
All systems: All other systems were reviewed and were negative
Vital Signs
Temp Pulse Resp BP Pulse Ox
101.5 F H 101 18 155/70 96
04/03/25 11:36 04/03/25 13:00 04/03/25 13:00 04/03/25 13:00 04/03/25 13:00
Physical Exam
Physical Exam
Constitutional: No Acute Distress
Head: Other (No sinus tenderness)
Eyes: No Conjunctival Hemorrhage and Sclera Anicteric
Cardiovascular: Regular Rate and S1/S2
Pulmonary: Clear
Gastrointestinal: Soft, Non Tender, Non Distended and Normal Bowel Sounds
Genito-Urinary: Negative CVA Tenderness
Musculoskeletal: Joint Effusion (R knee>L knee, + warmth, no erythema.) and Other (Left knee ROM limited due to pain > R knee ROM)
Neurological: AO x 3
Lines: PICC (RUE no edema/erythema, no drainage)
Lab / Diagnostic Study Results
04/03/25 11:39
Abs Immat Gran (auto) 0.1 10^3/uL (0-0.05) H 04/03/25 11:39
Absolute Neuts (auto) 16.0 10^3/uL (1.4-6.5) H 04/03/25 11:39
Absolute Lymphs (auto) 0.6 10^3/uL (1.2-3.4) L 04/03/25 11:39
Absolute Monos (auto) 1.4 10^3/uL (0.1-0.6) H 04/03/25 11:39
Absolute Basos (auto) 0.1 10^3/uL (0-0.2) 04/03/25 11:39
Immature Gran % 0.4 % (0-0.5) 04/03/25 11:39
Neutrophils % 88.6 % (42.2-75.2) H 04/03/25 11:39
Lymphocytes % 3.0 % (20.5-51.1) L 04/03/25 11:39
Monocytes % 7.5 % (1.7-9.3) 04/03/25 11:39
Eosinophils % 0.1 % (0-6) 04/03/25 11:39
Basophils % 0.4 % (0-2) 04/03/25 11:39
ESR 61 mm/hour (0-20) H 04/03/25 11:39
Lactic Acid 2.7 mmol/L (0.7-2.0) H 04/03/25 11:38
Microbiology Results
Micro:
04/03/25 11:44 Blood Culture - Pending
Blood/Venous
04/03/25 11:38 Blood Culture - Pending
Blood/Venous
Assessment / Plan
# Fever
# Leukocytosis
# Acute bilateral knee pain with effusion
# Recent R pubic symphysis osteo/R adductor muscle abscess with Viridans strep, currently on ceftriaxone
# hx prostate ca s/p prostatectomy/XRT 2007; recurrence 3 yrs ago currently on Zytiga/low dose prednisone
# Urethral stricture, self-cath 2x/week to dilate
- COVID/Flu pending
- Blood cx's pending
- Picc site does not look infected
- Recommend Ortho consult - arthrocentesis of knees, r/o septic vs inflammatory arthritis
- Continue ceftriaxone for now pending cx data.
- Trend temps/wbc.
Care Review
Plan reviewed with: Other Provider
Total Time Spent with Patient (in minutes): RUDI Alvarez
[2025-04-03] MEDS: NSS 2700 ML IV (13:53)
[2025-04-03 14:08] LABS: ALT (SGPT) 15 U/L (0-50); AST (SGOT) 23 U/L (17-59); Albumin 3.7 g/dl (3.5-5.0); Alkaline Phosphatase 81 U/L (38-126); Blood Urea Nitrogen 13 mg/dl (9-20); Calcium 8.8 mg/dl (8.4-10.2); Carbon Dioxide 16 mmol/L (22-30); Chloride 102 mmol/L (98-107); Estimated Creatinine Clearance 59 ml/min; Glucose 189 mg/dl (70-99); Potassium 3.6 mmol/L (3.5-5.1); Sodium 132 mmol/L (135-145); Total Protein 7.1 g/dl (6.3-8.2); eGFR > 60.00
[2025-04-03 14:34] LABS: COVID-19 Antigen Negative (Negative)
[2025-04-03 14:46] LABS: C-Reactive Protein 175.50 mg/L (0.0-10.00)
[2025-04-03 14:53] LABS: Uric Acid 3.1 mg/dl (3.5-8.5)
[2025-04-03] MEDS: DILAUDID 1 MG IV (14:54)
--- NOTE | 2025-04-03 16:04 | HPS.HSE ---
Family Physician
-
Family Physician: Mane Simpson
Chief Complaint
-
Fever
History of Present Illness
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 He was DC'd home w PICC line on Rocephin 2 gms daily. Today he had bilateral knee pain and
swelling (began two days ago). Knee pain is 6/10 when still, 10/10 with any movement. He presents with fever 101.5
Pt states the site of the R abductor muscle abscess is not painful. No redness or swelling or pain at PICC site. He Denies n/v/d/c. Denies CP or SOB or abdominal pain. In the ED he had both knees aspirated. ID has seen the patient. The summary
for the recent admit is as follows:
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
WBC could not be calculated. Also febrile with elevated WBC count on admission so started on Ancef for septic arthritis, however Orthopedics consider it less likely, since patient recently increased weight baring on LLE due to R hip problems.
Followed in the [facility]. LAter found with abductor muscle abscess s/p IRAD drain with Cx growing strep Viridans, so ID recommended Ceftriaxone IV till 04/27/24. CM arranged home infusions and patient is medically stable for d/c home.'
Medical History
Past Medical History
Past Medical History: Reports Other
Additional Past Medical History:
Essential Hypertension
Hypothyroidism
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
prostate cancer status post prostatectomy and radiation 2007, with elevated PSA 3 years ago currently on Zytiga/low-dose prednisone
History of urethral implant/prostate sling procedure 2011
Urethral stricture requiring self catheterization twice a week for urethral dilation
HLD,
hypothyroid,
iatrogenic adrenal insufficiency,
chronic low-dose steroid therapy
Past Surgical History: Reports Other
Additional Past Surgical History:
See above
Social History
Tobacco: Non-smoker
Alcohol: Occasional
Drug: None
Personal:
Living: With Family
Family History
Family History: Not pertinent
Allergies / Home Medications
Allergies reflects when Allergies were last updated in [employer].
Home Medications with original date entered in [employer]
Allergy/Medication List:
Allergies
Allergy/AdvReac Type Severity Reaction Status Date / Time
No Known Allergies Allergy Verified 06/08/24 17:16
Home Medications
abiraterone 250 mg tablet (Zytiga) 1,000 mg PO DAILY@0600 Antiandrogen 01/03/23
levothyroxine 175 mcg tablet 175 mcg PO MOTUWETHFRSA@0600 Thyroid 01/03/23
lisinopril 40 mg tablet 40 mg PO DAILY Blood Pressure 01/03/23
prednisone 5 mg tablet 5 mg PO DAILY INFLAMMATION 01/03/23
simvastatin 20 mg tablet 20 mg PO QPM High Cholesterol 01/03/23
amlodipine 5 mg tablet 5 mg PO DAILY Blood Pressure 02/06/25
ceftriaxone 2 gram solution for injection 2,000 mg IV Q24H #0 ea 03/21/25
calcium carbonate 500 mg PO DAILY 04/03/25
Review of Systems
-
History Source: Patient
A 12 point ROS was completed and negative except as noted: Yes
Physical Exam
Vital Signs
Vital Signs
Temp Pulse Resp BP Pulse Ox
101.2 F H 87 16 114/62 95
04/03/25 13:55 04/03/25 14:45 04/03/25 14:45 04/03/25 15:00 04/03/25 14:45
Physical Exam
General: Well Developed, Well Nourished, No Apparent Distress, Comfortable and Conversant
HEENT: NormoCephalic, Moist mucous membranes, Nose Appears Normal and Ears Appear Normal
Respiratory: Clear
Cardiac: S1/S2, Regular Rhythm and Murmur ((not noted on recent physical exam))
GI: Soft, Non Tender and Non Distended
Musculoskeletal: No Clubbing, No Cyanosis and No Edema
Skin: Warm and Dry
Neuro: Awake, Alert, Oriented and AO x 3
Psych: Calm
Laboratory Results
-
04/03/25 11:39
04/03/25 11:38
Laboratory Results
Lactic Acid 2.7 mmol/L (0.7-2.0) H 04/03/25 11:38
Total Bilirubin 2.3 mg/dl (0.2-1.3) H 04/03/25 11:38
AST 23 U/L (17-59) 04/03/25 11:38
ALT 15 U/L (0-50) 04/03/25 11:38
Alkaline Phosphatase 81 U/L (38-126) 04/03/25 11:38
Data Reviewed
-
Lab Data: Labs Reviewed by me
Impression/Plan
-
IMPRESSION:
74 man with fever and swollen knees in setting of recent abscess that required long term care administrator IV antibiotics.
Important data:
WBC 18.1
Temp 101.2
Lactic acid 2.7
Uric acid 3.1
CRP 175.50
Covid neg
Cardiac Murmur on exam
PLAN:
1. Fever, increased WBC, lactic acidosis
30 ml/kg IV saline
IV abx per ID recommendation, ID consult stated:
- Continue ceftriaxone for now pending cx data.
- Trend temps/wbc.
New murmur on exam
Check echo
2. Chronic steroid dependence, no sign of adrenal insufficiency
No need for stress dose steroids at this time
Follow vitals closely
Full code
VCD for DVTp
[2025-04-03 16:46] LABS: Body Fluid Second Tech FB
[2025-04-03 17:29] LABS: Urine Character Clear (Clear)
[2025-04-03 17:44] LABS: Body Fluid Second Tech FB
[2025-04-03 17:50] LABS: Urine Squamous Cell 0-2 /LPF (Few)
[2025-04-03 17:51] LABS: Urine White Cell 50-60 /HPF (0-5)
--- NOTE | 2025-04-03 20:06 | PTCARENOTE ---
Pt arrived onto floor via stretcher. Pt AAOx3 and a bleach boiler puller to the bed. Pt with no complaints of SOB at this time. Pt oriented to room and call crawford; will continue to monitor
[2025-04-03] MEDS: DILAUDID 0.5 MG IV (20:10)
[2025-04-03] MEDS: STERILE WATER FOR INJECTION 20 ML IV (20:11)
[2025-04-03] MEDS: ROCEPHIN 2000 MG IV (20:11)
[2025-04-03] MEDS: NSS 1000 IV (20:11)
[2025-04-03] MEDS: LIPITOR 10 MG PO (20:11)
--- NOTE | 2025-04-03 21:22 | VATNOTE ---
PT admitted from home with Right Basilic SL PICC. Notified PCN Maciej that a CXR needs to be ordered to verify placement before use. R Picc line redressed by VAT per protocol.
[2025-04-04] MEDS: NSS 1000 IV ×2 (01:29→05:39)
[2025-04-04 04:49] LABS: Blood Urea Nitrogen 14 mg/dl (9-20); Calcium 7.6 mg/dl (8.4-10.2); Carbon Dioxide 23 mmol/L (22-30); Chloride 104 mmol/L (98-107); Estimated Creatinine Clearance 78 ml/min; Glucose 95 mg/dl (70-99); Magnesium 1.8 mg/dl (1.6-2.3); Potassium 3.2 mmol/L (3.5-5.1); Sodium 132 mmol/L (135-145); eGFR > 60.00
[2025-04-04] MEDS: DILAUDID 0.5 MG IV ×3 (05:39→13:52)
[2025-04-04] MEDS: SYNTHROID 175 MCG PO (05:39)
[2025-04-04] MEDS: NON-FORMULARY ITEM 1000 MG PO (05:40)
[2025-04-04 06:00] LABS: Hematocrit 28.2 % (39.0-52.0); Hemoglobin 9.3 g/dL (13.0-18.0); Mean Corp Hgb Conc. 33.0 g/dL (33.0-37.0); Mean Corpuscular Volume 81.7 fL (80.0-94.0); Platelet Count 186 10^3/uL (130-400); Red Cell Dist. Width 13.9 % (11.5-14.5)
--- NOTE | 2025-04-04 07:09 | W.PN.UPDATE ---
Update Note
Progress Note Update
The patient was seen and examined by Orthopedic surgery on rounds. He presented to the ED yesterday reporting bilateral knee pain and swelling. He was recently seen as an inpatient by our practice for his left knee; cultures from the left knee
aspiration were negative. 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 He was DC'd home with PICC line on Rocephin 2 g daily. He endorses R > L
knee pain with range of motion and weightbearing. Clinically, decreased range of motion bilaterally (right worse than left) with mild effusion and mild warmth; no erythema. ESR 61 04/03/2025; previously 76 03/14/2025. CRP 175.50 04/03/2025;
previously 48.70 03/14/2025. CBC with a WBC of 11.5 this AM, decreased from 18.1 on admission. He underwent right and left knee aspiration in the ED yesterday. Left knee aspirate with cell count 14,050, 94% PMN's, no crystals seen. Preliminary
Gram stain - moderate WBC; no organisms seen. Fluid culture pending. Right knee aspirate with cell count 36,900, 94.9% PMN's, no crystals seen. Preliminary Gram stain - white blood cells seen, no organisms seen. Fluid culture pending. Order
placed for right knee x-rays. Pain control per primary team. Ice and elevation for edema control. Continue treatment per primary team and ID recommendations. Orthopedic surgery will continue to follow.
[2025-04-04 07:23] VITALS: BP 150/75
[2025-04-04] MEDS: ZESTRIL 40 MG PO (08:04)
[2025-04-04] MEDS: DELTASONE 5 MG PO (08:04)
[2025-04-04] MEDS: NORVASC 5 MG PO (08:04)
[2025-04-04] MEDS: OSCAL CAL 500 500 MG PO (08:05)
--- NOTE | 2025-04-04 08:34 | VNURNOTE ---
Addendum entered by Talia Storm RN 04/04/25 13:31:
[facility] Resumption referral placed in [facility].
Original Note:
Chart reviewed. Patient is current with [facility]. Will continue to follow hospital course and DC plans.
[2025-04-04] MEDS: KCL 40 MEQ PO (09:28)
[2025-04-04 09:30] LABS: Total Iron Binding Capacity 177 ug/dl (261-462)
[2025-04-04 09:33] LABS: Iron < 20 ug/dl (49-181)
[2025-04-04 09:40] LABS: Vitamin D, 25-OH*** 30.1 ng/mL (30-80)
[2025-04-04 09:58] LABS: Ferritin 447.0 ng/ml (17.9-464.0)
[2025-04-04 10:13] LABS: Vitamin B12 < 159 pg/ml (239-931)
--- NOTE | 2025-04-04 12:09 | CM ---
CM reviewed chart, patient seen bedside with , initial assessment completed.
Patient resides with his in a ranch style home, two steps to enter.
Patient is current with [facility] for home infusion, current with [facility] for home therapy.
DME in home: RW
PCP Mane Simpson, Pharmacy [facility].
Will send updated referral to [facility].
CM will continue to follow.
Plan; home with , [facility], [facility]
--- NOTE | 2025-04-04 13:18 | W.PN.ID1 ---
Date of Service
Date of Service: April 04, 2025
Today's Communication
Await cx data.
Continue ceftriaxone.
Assessment / Plan
# Fever - trending down
# Leukocytosis- trending down
# Acute bilateral knee pain with effusion
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
# hx prostate ca s/p prostatectomy/XRT 2007; recurrence 3 yrs ago currently on Zytiga/low dose prednisone
# Urethral stricture, self-cath 2x/week to dilate
- COVID/Flu neg
- Blood cx's neg to date
- Picc site does not look infected
- Ortho following
- L knee synovial fluid: 14,050 WBC, 94%PMN, no crystals, cx neg to date
- R knee synovial fluid: 36,900 WBC, 95%PMN, no crystals, cx neg to date
- Continue ceftriaxone 2g IV q24h
- Trend temps/wbc.
Chief Complaint
-: Fever, Leukocytosis and Other (Bilateral knee pain)
Subjective / Review of Systems
Still with bilateral knee pain. Unable to bend.
Vital Signs / Physical Exam
Vital Signs
Vital Signs
Temp Pulse Resp BP Pulse Ox
100.0 F 88 12 150/75 96
04/04/25 07:23 04/04/25 07:23 04/04/25 07:23 04/04/25 07:23 04/04/25 07:23
Physical Exam
Constitutional: No Acute Distress
Eyes: No Conjunctival Hemorrhage and Sclera Anicteric
Cardiovascular: Regular Rate and S1/S2
Pulmonary: Clear
Gastrointestinal: Soft, Non Tender, Non Distended and Normal Bowel Sounds
Extremities: Edema (BLE); Negative Erythema
Musculoskeletal: Joint Effusion (R > L knee, no erythema)
Neurological: AO x 3
Lines: PICC (RUE no erythema)
Objective Data
Lab Data
Lab Results
04/04/25 03:44
04/04/25 03:44
ESR 61 mm/hour (0-20) H 04/03/25 11:39
Estimated Creat Clear 78 ml/min 04/04/25 03:44
Lactic Acid 0.7 mmol/L (0.7-2.0) 04/03/25 21:39
Total Bilirubin 2.3 mg/dl (0.2-1.3) H 04/03/25 11:38
AST 23 U/L (17-59) 04/03/25 11:38
ALT 15 U/L (0-50) 04/03/25 11:38
Alkaline Phosphatase 81 U/L (38-126) 04/03/25 11:38
C-Reactive Protein 175.50 mg/L (0.0-10.00) H 04/03/25 11:39
Most recent labs reviewed.
Micro Results:
04/03/25 16:51 Urine Culture - Final
Urine NO GROWTH
04/03/25 11:44 Blood Culture - Preliminary
Blood/Venous No Growth in 24 hours- Final report to follow
04/03/25 11:38 Blood Culture - Preliminary
Blood/Venous No Growth in 24 hours- Final report to follow
04/03/25 16:51 Body Fluid Culture - Preliminary
Joint Fluid No Growth After 18-24 Hours
Gram Stain - Preliminary
04/03/25 14:58 Body Fluid Culture - Preliminary
Joint Fluid No Growth After 18-24 Hours
Gram Stain - Preliminary
04/03/25 14:06 Influenza Types A & B (SULAIMAN) - Final
Nasal Swab Negative for Influenza A & B, NAAT
Negative results must be combined with clinical observations
and patient history.
Nucleic Acid Amplification test (NAAT)performed on the
[employer] platform.
04/04/25 R Knee xray: Large suprapatellar effusion. Moderate lateral joint space narrowing.
04/03/[address]: The previously seen right abductor musculature rim-enhancing collections are no longer visualized. There is persistent erosive changes of the pubic symphysis with mild adjacent soft tissue thickening on the right which is stable
from prior and likely related to the known osteomyelitis.
[2025-04-04] MEDS: STERILE WATER FOR INJECTION 20 ML IV (13:51)
[2025-04-04] MEDS: ROCEPHIN 2000 MG IV (13:51)
[2025-04-04 15:00] VITALS: BP 152/76
--- NOTE | 2025-04-04 15:39 | W.PN.HOSP.TC ---
Today's Communication/Plan
-
Get 1 set of blood cultures because of the fever now
Follow fluid cultures
Pain management for the knee
Assessment / Plan
Assessment / Plan
74-year-old male who was admitted from [facility] 01/12/2025 to 03/21/2025. He had acute left knee pain synovitic fluid was negative for culture and crystals. Outpatient MRI and inpatient CT abdomen pelvis showed 2 abscesses ( right
adductor musculature measuring up to 3.5 cm and 1.8 cm) in the right abductor muscle and osseous destructive changes in this symphysis pubis. IR aspirated the abscess-grew strep viridans. Patient was discharged with a PICC line and IV ceftriaxone.
Patient was doing well but on Thursday he started having bilateral knee pain. He also had his 85 pound dog jumped and landed on his left knee prior to the pain. Then he started having fevers and chills.Both knees were aspirated in the ER
Chest x-ray-right upper extremity PICC line. No pneumonia
CT pelvis-04/03/2025-previously seen right adductor musculature rim-enhancing collections are no longer visualized. Persistent erosive changes in the pubic symphysis with mild adjacent soft tissue thickening on the right which is stable from the
prior and likely related to known osteomyelitis.
Bilateral knees-difficulty moving because of pain
Cardiovascular system S1-S2 appreciated
Chest clear to auscultation
Abdomen soft and nontender
# Fever with leukocytosis
CRP elevated at 175.5
Acute bilateral knee pain with effusion
Recent right cyst pubic symphysis osteomyelitis and right adductor muscle abscess-was on ceftriaxone(cultures with Streptococcus viridans)
Bilateral arthrocentesis in the ER
Left knee-cell count 14,050, 94% PMN, no crystals, Gram stain-moderate WBC no organisms-culture pending
Right knee-cell count 36,900, 94% PMN, no crystal, Gram stain WBCs, no organisms-cultures pending
COVID and influenza negative
Lactic acidosis improved
Lyme serologies pending
Blood cultures pending
Continue ceftriaxone
Infectious disease and orthopedic consultations appreciated
Leukocytosis better
# Abnormal urinalysis- Patient does catheterize twice a week to dilate-prone for infections because of this-Cx no growth.
# Anemia-vitamin B12 and iron deficiency-replace both. Patient is aware about outpatient GI workup including endoscopy and colonoscopy
# Hypokalemia-replace
# Mild tldghyfaskke-lxiopf-mr. Stop IV fluids.
# History of urethral stricture with laser procedure/history of bladder sling procedure-patient catheterizes 2 times a week to dilate
# History of prostate cancer with prostatectomy and radiation 2007-recurrence 3 years ago-currently on Zytiga/prednisone
# Hypertension-continue amlodipine, lisinopril
# History of Graves' disease-now with hypothyroidism-continue levothyroxine
# Hyperlipidemia-continue simvastatin
# DVT prophylaxis-Lovenox
# Full code
Discussed with infectious disease
Part of this note was created using voice recognition system. Occasional wrong word or��sound alike� substitutions may have inadvertently occurred due to the inherent limitations of voice recognition software. If noted kindly bring it to my
attention for correction.
Anticipated Discharge: > 48 hours
Subjective/Interval History
-
Date of Service: April 04, 2025
Objective Data
-
Labs:
Laboratory Results
04/04/25
03:44
WBC 11.5 H
Hgb 9.3 L
Hct 28.2 L
Plt Count 186 D
Sodium 132 L
Potassium 3.2 L
Chloride 104
Carbon Dioxide 23
BUN 14
Creatinine 0.8
Glucose 95
Calcium 7.6 L
Vital Signs:
Vital Signs
Temp Pulse Resp BP Pulse Ox
100.0 F 88 12 150/75 96
04/04/25 07:23 04/04/25 07:23 04/04/25 07:23 04/04/25 07:23 04/04/25 07:23
I&O
04/03/25 04/04/25 04/05/25
06:59 06:59 06:59
Intake Total 1999 / 1999
Output Total 900 / 900
Balance 1100 / 1100
[2025-04-04] MEDS: LIDOCAINE 4% PATCH 2 PATCH TOPICAL (16:06)
[2025-04-04] MEDS: LOVENOX 40 MG SC (16:08)
[2025-04-04] MEDS: LIPITOR 10 MG PO ×2 (16:09→16:13)
[2025-04-04] MEDS: CYANOCOBALAMIN 1000 MCG IM (16:09)
[2025-04-04] MEDS: TYLENOL 650 MG PO (16:12)
[2025-04-04] MEDS: FERRLECIT 110 MG IV (16:13)
[2025-04-04] MEDS: ROXICODONE 5 MG PO ×2 (16:50→21:21)
[2025-04-04] MEDS: SENOKOT 17.2 MG PO (19:42)
[2025-04-04] MEDS: CELEBREX 100 MG PO (19:42)
[2025-04-04] MEDS: REMOVE LIDOCAINE PATCH 1 PATCH REMOVE (19:43)
[2025-04-04 22:50] VITALS: BP 137/64
[2025-04-05] MEDS: NON-FORMULARY ITEM 1000 MG PO (05:24)
[2025-04-05] MEDS: SYNTHROID 175 MCG PO (05:25)
[2025-04-05] MEDS: ROXICODONE 5 MG PO ×3 (05:25→14:27)
[2025-04-05 06:21] LABS: Hematocrit 28.1 % (39.0-52.0); Hemoglobin 9.4 g/dL (13.0-18.0); Mean Corp Hgb Conc. 33.5 g/dL (33.0-37.0); Mean Corpuscular Volume 82.6 fL (80.0-94.0); Nucleated Red Blood Cells % 0 % (-); Platelet Count 196 10^3/uL (130-400); Red Cell Dist. Width 13.5 % (11.5-14.5)
[2025-04-05 06:33] LABS: Blood Urea Nitrogen 13 mg/dl (9-20); Calcium 8.0 mg/dl (8.4-10.2); Carbon Dioxide 24 mmol/L (22-30); Chloride 104 mmol/L (98-107); Estimated Creatinine Clearance 78 ml/min; Glucose 99 mg/dl (70-99); Potassium 3.6 mmol/L (3.5-5.1); Sodium 134 mmol/L (135-145); eGFR > 60.00
[2025-04-05 07:00] VITALS: BP 116/57
[2025-04-05] MEDS: CYANOCOBALAMIN 1000 MCG IM (07:38)
[2025-04-05] MEDS: DELTASONE 5 MG PO (07:38)
[2025-04-05] MEDS: CELEBREX 100 MG PO ×2 (07:39→19:14)
[2025-04-05] MEDS: LIDOCAINE 4% PATCH 2 PATCH TOPICAL (07:39)
[2025-04-05] MEDS: OSCAL CAL 500 500 MG PO (07:40)
[2025-04-05] MEDS: SENOKOT 17.2 MG PO ×2 (07:41→19:11)
[2025-04-05] MEDS: NORVASC 5 MG PO (07:42)
[2025-04-05] MEDS: MIRALAX 17 GRAMS PO (07:42)
[2025-04-05] MEDS: ZESTRIL 40 MG PO (07:44)
[2025-04-05] MEDS: STERILE WATER FOR INJECTION 20 ML IV (11:51)
[2025-04-05] MEDS: ROCEPHIN 2000 MG IV (11:52)
--- NOTE | 2025-04-05 14:32 | W.PN.ID1 ---
Date of Service
Date of Service: April 05, 2025
Today's Communication
Continue ceftriaxone.
Assessment / Plan
# Fever - yesterday
# Leukocytosis- resolved
# Acute bilateral knee pain with effusion
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
# hx prostate ca s/p prostatectomy/XRT 2007; recurrence 3 yrs ago currently on Zytiga/low dose prednisone
# Urethral stricture, self-cath 2x/week to dilate
- COVID/Flu neg
- Blood cx's neg to date
- Picc site does not look infected
- Ortho following
- L knee synovial fluid: 14,050 WBC, 94%PMN, no crystals, cx neg x48h
- R knee synovial fluid: 36,900 WBC, 95%PMN, no crystals, cx neg x 48h
Continue supportive management of knees.
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
- Trend temp.
Chief Complaint
-: Fever and Other (Bilateral knee pain)
Subjective / Review of Systems
Knees are slowly better- able to bend more.
Did not notice fever yesterdat, until told.
Vital Signs / Physical Exam
Vital Signs
Vital Signs
Temp Pulse Resp BP Pulse Ox
99.6 F 76 18 116/57 96
04/05/25 07:00 04/05/25 07:00 04/05/25 07:00 04/05/25 07:00 04/05/25 07:00
Physical Exam
Constitutional: No Acute Distress and Comfortable
Eyes: No Conjunctival Hemorrhage and Sclera Anicteric
Cardiovascular: Regular Rate and S1/S2
Pulmonary: Clear
Gastrointestinal: Soft, Non Tender, Non Distended and Normal Bowel Sounds
Extremities: Edema (Decreased BLE)
Musculoskeletal: Joint Effusion (R>L knee improving)
Neurological: AO x 3
Lines: PICC (RUE intact)
Objective Data
Lab Data
Lab Results
04/05/25 05:47
04/05/25 05:47
ESR 61 mm/hour (0-20) H 04/03/25 11:39
Estimated Creat Clear 78 ml/min 04/05/25 05:47
Lactic Acid 0.7 mmol/L (0.7-2.0) 04/03/25 21:39
Total Bilirubin 2.3 mg/dl (0.2-1.3) H 04/03/25 11:38
AST 23 U/L (17-59) 04/03/25 11:38
ALT 15 U/L (0-50) 04/03/25 11:38
Alkaline Phosphatase 81 U/L (38-126) 04/03/25 11:38
C-Reactive Protein 175.50 mg/L (0.0-10.00) H 04/03/25 11:39
Most recent labs reviewed.
Micro Results:
04/03/25 14:58 Body Fluid Culture - Preliminary
Joint Fluid No Growth After 48 Hours
Gram Stain - Preliminary
04/03/25 16:51 Body Fluid Culture - Preliminary
Joint Fluid No Growth After 48 Hours
Gram Stain - Preliminary
04/03/25 11:44 Blood Culture - Preliminary
Blood/Venous No Growth in 48 hours- Final report to follow
04/03/25 11:38 Blood Culture - Preliminary
Blood/Venous No Growth in 48 hours- Final report to follow
04/04/25 15:59 Blood Culture - Pending
Blood/Venous
04/03/25 16:51 Urine Culture - Final
Urine NO GROWTH
04/03/25 14:06 Influenza Types A & B (SULAIMAN) - Final
Nasal Swab Negative for Influenza A & B, NAAT
Negative results must be combined with clinical observations
and patient history.
Nucleic Acid Amplification test (NAAT)performed on the
[employer] platform.
04/04/25 R Knee xray: Large suprapatellar effusion. Moderate lateral joint space narrowing.
04/03/[address]: The previously seen right abductor musculature rim-enhancing collections are no longer visualized. There is persistent erosive changes of the pubic symphysis with mild adjacent soft tissue thickening on the right which is stable
from prior and likely related to the known osteomyelitis.
--- NOTE | 2025-04-05 14:55 | W.PN.UPDATE ---
Update Note
Progress Note Update
Patient reports improvement in his level of right>left knee pain. Still with a persistent effusion of the right knee. Anxious to get up and OOB. He presented to the ED 03 April reporting bilateral knee pain and swelling. He was recently seen as
an inpatient by our practice for his left knee; cultures from the left knee aspiration were negative. 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
He was DC'd home with PICC line on Rocephin 2 g daily. Clinically, decreased range of motion bilaterally (right worse than left) with moderate effusion of the right knee and trace of the left. No erythema. Low grade 99.6. ESR 61 on Apr 13;
previously 76 on Mar 14. CRP 175.50 on Apr 13; previously 48.70 on Mar 14. CBC with a WBC of 10.4 this AM, decreased from 18.1 on admission. He underwent right and left knee aspiration in the ED Apr 13. Left knee aspirate with cell
count 14,050, 94% PMN's, no crystals seen. Preliminary Gram stain - moderate WBC; no organisms seen. Cx NTGD @ 48 hours. Right knee aspirate with cell count 36,900, 94.9% PMN's, no crystals seen. Preliminary Gram stain - white blood cells seen,
no organisms seen. Cx NGTD @ 48 hours. Xrays of the right knee reviewed- moderate lateral compartment disease. Nothing acute noted. Left knee xrays on Mar 14 with moderate to severe medial compartment disease. Pain control per primary team. Ice
and elevation for edema control. Continue treatment per primary team with ID recommendations. I did offer him a therapeutic aspiration of the right knee today, which he agreed to. Using betadine I sterially aspirated his right knee for 45cc
yellow, slightly cloudy, but reasonably benign appearing synovial fluid. Did not send to the lab. Will place a PT order. May be WBAT on device, which he is anxious to do. Continue following Cx date. Orthopedic surgery will follow.
[2025-04-05 15:00] VITALS: BP 133/63
[2025-04-05] MEDS: FERRLECIT 110 MG IV (15:01)
--- NOTE | 2025-04-05 17:33 | W.PN.HOSP.TC ---
Today's Communication/Plan
-
PT OT consultations
Continue antibiotics
Assessment / Plan
Assessment / Plan
74-year-old male who was admitted from [facility] 01/12/2025 to 03/21/2025. He had acute left knee pain synovitic fluid was negative for culture and crystals. Outpatient MRI and inpatient CT abdomen pelvis showed 2 abscesses ( right
adductor musculature measuring up to 3.5 cm and 1.8 cm) in the right abductor muscle and osseous destructive changes in this symphysis pubis. IR aspirated the abscess-grew strep viridans. Patient was discharged with a PICC line and IV ceftriaxone.
Patient was doing well but on Thursday he started having bilateral knee pain. He also had his 85 pound dog jumped and landed on his left knee prior to the pain. Then he started having fevers and chills.Both knees were aspirated in the ER
Chest x-ray-right upper extremity PICC line. No pneumonia
CT pelvis-04/03/2025-previously seen right adductor musculature rim-enhancing collections are no longer visualized. Persistent erosive changes in the pubic symphysis with mild adjacent soft tissue thickening on the right which is stable from the
prior and likely related to known osteomyelitis.
Bilateral knees-able to move better today
Cardiovascular system S1-S2 appreciated
Chest clear to auscultation
Abdomen soft and nontender
# Fever with leukocytosis
CRP elevated at 175.5
Acute bilateral knee pain with effusion
Recent right cyst pubic symphysis osteomyelitis and right adductor muscle abscess-was on ceftriaxone(cultures with Streptococcus viridans)
Bilateral arthrocentesis in the ER
Left knee-cell count 14,050, 94% PMN, no crystals, Gram stain-moderate WBC no organisms-culture pending-no growth so far
Right knee-cell count 36,900, 94% PMN, no crystal, Gram stain WBCs, no organisms-cultures pending-no growth so far
Another therapeutic arthrocentesis of the right knee on 04/05/2025, 45 mL of fluid removed-not sent for testing
COVID and influenza negative
Lactic acidosis improved
Lyme serologies pending
Blood cultures negative so far
Continue ceftriaxone
Infectious disease and orthopedic consultations appreciated
Leukocytosis better
Recent immunology studies noted negative rheumatoid factor, VENICE less than 1 : 80.
Complements added pending
# Abnormal urinalysis- Patient does catheterize twice a week to dilate-prone for infections because of this-Cx no growth.
# Anemia-vitamin B12 and iron deficiency-replace both. Patient is aware about outpatient GI workup including endoscopy and colonoscopy
# Hypokalemia-replaced
# Mild hyponatremia-improved
# History of urethral stricture with laser procedure/history of bladder sling procedure-patient catheterizes 2 times a week to dilate
# History of prostate cancer with prostatectomy and radiation 2007-recurrence 3 years ago-currently on Zytiga/prednisone
# Hypertension-continue amlodipine, lisinopril
# History of Graves' disease-now with hypothyroidism-continue levothyroxine
# Hyperlipidemia-continue simvastatin
# DVT prophylaxis-Lovenox
# Full code
Part of this note was created using voice recognition system. Occasional wrong word or��sound alike� substitutions may have inadvertently occurred due to the inherent limitations of voice recognition software. If noted kindly bring it to my
attention for correction.
Anticipated Discharge: 24 - 48 hours
Subjective/Interval History
-
Date of Service: April 05, 2025
Objective Data
-
Labs:
Laboratory Results
04/05/25
05:47
WBC 10.4
Hgb 9.4 L
Hct 28.1 L
Plt Count 196
Sodium 134 L
Potassium 3.6
Chloride 104
Carbon Dioxide 24
BUN 13
Creatinine 0.8
Glucose 99
Calcium 8.0 L
Vital Signs:
Vital Signs
Temp Pulse Resp BP Pulse Ox
99.9 F 75 18 133/63 96
04/05/25 15:00 04/05/25 15:00 04/05/25 15:00 04/05/25 15:00 04/05/25 15:00
I&O
04/04/25 04/05/25 04/06/25
06:59 06:59 06:59
Intake Total 1999 / 1999 960 / 960
Output Total 900 / 900 1715 / 1715
Balance 1100 / 1100 -755 / -755
[2025-04-05] MEDS: LOVENOX 40 MG SC (18:18)
[2025-04-05] MEDS: REMOVE LIDOCAINE PATCH 1 PATCH REMOVE (19:11)
[2025-04-05 23:00] VITALS: BP 119/61
[2025-04-06 05:10] LABS: Hematocrit 26.2 % (39.0-52.0); Hemoglobin 8.7 g/dL (13.0-18.0); Mean Corp Hgb Conc. 33.2 g/dL (33.0-37.0); Mean Corpuscular Volume 82.6 fL (80.0-94.0); Platelet Count 213 10^3/uL (130-400); Red Cell Dist. Width 13.4 % (11.5-14.5)
[2025-04-06 05:11] LABS: Blood Urea Nitrogen 13 mg/dl (9-20); Calcium 8.0 mg/dl (8.4-10.2); Carbon Dioxide 28 mmol/L (22-30); Chloride 103 mmol/L (98-107); Estimated Creatinine Clearance 70 ml/min; Glucose 89 mg/dl (70-99); Magnesium 1.9 mg/dl (1.6-2.3); Potassium 3.6 mmol/L (3.5-5.1); Sodium 134 mmol/L (135-145); eGFR > 60.00
[2025-04-06] MEDS: NON-FORMULARY ITEM 1000 MG PO (05:35)
[2025-04-06] MEDS: SYNTHROID 175 MCG PO (05:35)
--- NOTE | 2025-04-06 07:03 | W.PN.UPDATE ---
Update Note
Progress Note Update
The patient was seen and examined by Orthopedic surgery this morning on rounds. He endorses gradual improvements with his bilateral knee pain and reports that the right knee aspiration performed yesterday really alleviated a lot of discomfort.
Anxious to get up and OOB. He presented to the ED 03 April reporting bilateral knee pain and swelling. He was recently seen as an inpatient by our practice for his left knee; cultures from the left knee aspiration were negative. He was admitted
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 He was DC'd home with PICC line on Rocephin 2 g daily. Clinically, decreased range of motion bilaterally, however
improved from examination 2 days ago. Trace effusions bilaterally with no erythema. Temp 98.9 �F. ESR 61 on Apr 13; previously 76 on Mar 14. CRP 175.50 on Apr 13; previously 48.70 on Mar 14. CBC WBC downtrended. He underwent right
and left knee aspiration in the ED Apr 13. Left knee aspirate with cell count 14,050, 94% PMN's, no crystals seen. Preliminary Gram stain - moderate WBC; no organisms seen. Cx NTGD @ 48 hours. Right knee aspirate with cell count 36,900, 94.9%
PMN's, no crystals seen. Preliminary Gram stain - white blood cells seen, no organisms seen. Cx NGTD @ 48 hours. X-rays of the right knee reviewed- moderate lateral compartment disease. Nothing acute noted. Left knee x-rays on Mar 14 with
moderate to severe medial compartment disease. Pain control per primary team. Ice and elevation for edema control. Continue treatment per primary team with ID recommendations. PT/OT. WBAT B/L LE. Continue following Cx date. Orthopedic surgery
will follow.
[2025-04-06 07:20] VITALS: BP 136/46
[2025-04-06] MEDS: LIDOCAINE 4% PATCH 2 PATCH TOPICAL (08:35)
[2025-04-06] MEDS: MIRALAX 17 GRAMS PO (08:40)
[2025-04-06] MEDS: OSCAL CAL 500 500 MG PO (08:41)
[2025-04-06] MEDS: ZESTRIL 40 MG PO (08:41)
[2025-04-06] MEDS: SENOKOT 17.2 MG PO (08:42)
[2025-04-06] MEDS: CYANOCOBALAMIN 1000 MCG IM (08:42)
[2025-04-06] MEDS: CELEBREX 100 MG PO ×2 (08:43→19:26)
[2025-04-06] MEDS: DELTASONE 5 MG PO (08:43)
[2025-04-06] MEDS: NORVASC 5 MG PO (08:44)
[2025-04-06] MEDS: ROCEPHIN 2000 MG IV (11:30)
[2025-04-06] MEDS: STERILE WATER FOR INJECTION 20 ML IV (11:30)
[2025-04-06 11:34] VITALS: BP 139/73; PULSE 90; O2SAT 98
--- NOTE | 2025-04-06 11:44 | W.PN.ID1 ---
Date of Service
Date of Service: April 06, 2025
Today's Communication
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
Assessment / Plan
# Fever - resolved
# Leukocytosis- resolved
# Acute bilateral knee pain with effusion - probable musculoskeletal strain
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
# hx prostate ca s/p prostatectomy/XRT 2007; recurrence 3 yrs ago currently on Zytiga/low dose prednisone
# Urethral stricture, self-cath 2x/week to dilate
- COVID/Flu neg
- Blood cx's neg to date
- Picc site does not look infected
- L knee synovial fluid: 14,050 WBC, 94%PMN, no crystals, cx neg
- R knee synovial fluid: 36,900 WBC, 95%PMN, no crystals, cx neg
Continue supportive management of knees.
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
Chief Complaint
-: Fever and Other (Bilateral knee pain)
Subjective / Review of Systems
Knees continues to improve. PT in room.
Vital Signs / Physical Exam
Vital Signs
Vital Signs
Temp Pulse Resp BP Pulse Ox
99.0 F 76 18 136/46 96
04/06/25 07:20 04/06/25 07:20 04/06/25 07:20 04/06/25 07:20 04/06/25 07:20
Physical Exam
Constitutional: No Acute Distress and Comfortable
Eyes: No Conjunctival Hemorrhage and Sclera Anicteric
Cardiovascular: Regular Rate and S1/S2
Pulmonary: Clear
Gastrointestinal: Soft, Non Tender, Non Distended and Normal Bowel Sounds
Extremities: Edema (Decreased BLE)
Musculoskeletal: Joint Effusion (R>L knee improving)
Neurological: AO x 3
Lines: PICC (RUE intact)
Objective Data
Lab Data
Lab Results
04/06/25 04:23
04/06/25 04:23
ESR 61 mm/hour (0-20) H 04/03/25 11:39
Estimated Creat Clear 70 ml/min 04/06/25 04:23
Lactic Acid 0.7 mmol/L (0.7-2.0) 04/03/25 21:39
Total Bilirubin 2.3 mg/dl (0.2-1.3) H 04/03/25 11:38
AST 23 U/L (17-59) 04/03/25 11:38
ALT 15 U/L (0-50) 04/03/25 11:38
Alkaline Phosphatase 81 U/L (38-126) 04/03/25 11:38
C-Reactive Protein 175.50 mg/L (0.0-10.00) H 04/03/25 11:39
Most recent labs reviewed.
Micro Results:
04/03/25 11:38 Blood Culture - Preliminary
Blood/Venous No Growth in 72 hours- Final report to follow
04/03/25 14:58 Body Fluid Culture - Final
Joint Fluid No Growth After 72 Hours
Gram Stain - Final
04/03/25 16:51 Body Fluid Culture - Final
Joint Fluid No Growth After 72 Hours
Gram Stain - Preliminary
04/04/25 15:59 Blood Culture - Preliminary
Blood/Venous No Growth in 24 hours- Final report to follow
04/03/25 11:44 Blood Culture - Preliminary
Blood/Venous No Growth in 48 hours- Final report to follow
04/03/25 16:51 Urine Culture - Final
Urine NO GROWTH
04/03/25 14:06 Influenza Types A & B (SULAIMAN) - Final
Nasal Swab Negative for Influenza A & B, NAAT
Negative results must be combined with clinical observations
and patient history.
Nucleic Acid Amplification test (NAAT)performed on the
[employer] platform.
04/04/25 R Knee xray: Large suprapatellar effusion. Moderate lateral joint space narrowing.
04/03/[address]: The previously seen right abductor musculature rim-enhancing collections are no longer visualized. There is persistent erosive changes of the pubic symphysis with mild adjacent soft tissue thickening on the right which is stable
from prior and likely related to the known osteomyelitis.
[2025-04-06] MEDS: ROXICODONE 5 MG PO (12:12)
[2025-04-06] MEDS: FERRLECIT 110 MG IV (13:04)
--- NOTE | 2025-04-06 13:25 | CM ---
CM reviewed chart, reviewed with Hospitalist, plan for d/c tomorrow.
CM spoke with Kathryn, liaison at [facility], discussed discharge status. [facility] will need updated ID note, script stating patient will resume IV antibiotics prior to hospitalization- faxed to [phone].
Update to [facility] on dc status- patient requesting PT, Kayleigh, to continue working with pt.
Patient and seen bedside, no needs at this time.
CM will continue to follow for all d/c needs.
Plan[facility] res[facility]
[2025-04-06 13:42] LABS: Lyme Disease DNA by PCR Not Detected; Lyme Source Synovial fluid
--- NOTE | 2025-04-06 14:35 | W.PN.HOSP.TC ---
Today's Communication/Plan
-
Discharge planned for tomorrow per below discussions
Assessment / Plan
Assessment / Plan
74-year-old male who was admitted from [facility] 01/12/2025 to 03/21/2025. He had acute left knee pain synovitic fluid was negative for culture and crystals. Outpatient MRI and inpatient CT abdomen pelvis showed 2 abscesses ( right
adductor musculature measuring up to 3.5 cm and 1.8 cm) in the right abductor muscle and osseous destructive changes in this symphysis pubis. IR aspirated the abscess-grew strep viridans. Patient was discharged with a PICC line and IV ceftriaxone.
Patient was doing well but on Thursday he started having bilateral knee pain. He also had his 85 pound dog jumped and landed on his left knee prior to the pain. Then he started having fevers and chills.Both knees were aspirated in the ER
Chest x-ray-right upper extremity PICC line. No pneumonia
CT pelvis-04/03/2025-previously seen right adductor musculature rim-enhancing collections are no longer visualized. Persistent erosive changes in the pubic symphysis with mild adjacent soft tissue thickening on the right which is stable from the
prior and likely related to known osteomyelitis.
Bilateral knees-able to move better today
Cardiovascular system S1-S2 appreciated
Chest clear to auscultation
Abdomen soft and nontender
First time getting out of bed and sitting in a chair today
# Fever with leukocytosis
CRP elevated at 175.5
Acute bilateral knee pain with effusion
Recent right cyst pubic symphysis osteomyelitis and right adductor muscle abscess-was on ceftriaxone(cultures with Streptococcus viridans)
Bilateral arthrocentesis in the ER
Left knee-cell count 14,050, 94% PMN, no crystals, Gram stain-moderate WBC no organisms-culture pending-no growth so far
Right knee-cell count 36,900, 94% PMN, no crystal, Gram stain WBCs, no organisms-cultures pending-no growth so far
Another therapeutic arthrocentesis of the right knee on 04/05/2025, 45 mL of fluid removed-not sent for testing
COVID and influenza negative
Lactic acidosis improved
Lyme serologies negative
Blood cultures negative so far
Continue ceftriaxone till 04/27/2025
Infectious disease and orthopedic consultations appreciated
Leukocytosis better
Recent immunology studies noted negative rheumatoid factor, VENICE less than 1 : 80.
Complements unremarkable
# Abnormal urinalysis- Patient does catheterize twice a week to dilate-prone for infections because of this-Cx no growth.
# Anemia-vitamin B12 and iron deficiency-replace both. Patient is aware about outpatient GI workup including endoscopy and colonoscopy
# Hypokalemia-replaced
# Mild hyponatremia-improved
# History of urethral stricture with laser procedure/history of bladder sling procedure-patient catheterizes 2 times a week to dilate
# History of prostate cancer with prostatectomy and radiation 2007-recurrence 3 years ago-currently on Zytiga/prednisone
# Hypertension-continue amlodipine, lisinopril
# History of Graves' disease-now with hypothyroidism-continue levothyroxine
# Hyperlipidemia-continue simvastatin
# DVT prophylaxis-Lovenox
# Full code
Discussed with at bedside
Discussed with infectious disease and orthopedics
Discussed with case management
Home infusion can be reinstated
Part of this note was created using voice recognition system. Occasional wrong word or��sound alike� substitutions may have inadvertently occurred due to the inherent limitations of voice recognition software. If noted kindly bring it to my
attention for correction.
Anticipated Discharge: Within 24 hours
Subjective/Interval History
-
Date of Service: April 06, 2025
Objective Data
-
Labs:
Laboratory Results
04/06/25
04:23
WBC 8.9
Hgb 8.7 L
Hct 26.2 L
Plt Count 213
Sodium 134 L
Potassium 3.6
Chloride 103
Carbon Dioxide 28
BUN 13
Creatinine 0.9
Glucose 89
Calcium 8.0 L
Vital Signs:
Vital Signs
Temp Pulse Resp BP Pulse Ox
99.0 F 76 18 136/46 96
04/06/25 07:20 04/06/25 07:20 04/06/25 07:20 04/06/25 07:20 04/06/25 07:20
I&O
04/05/25 04/06/25 04/07/25
06:59 06:59 06:59
Intake Total 960 / 960 1440 / 1440
Output Total 1715 / 1715 1650 / 1650
Balance -755 / -755 -210 / -210
[2025-04-06 15:15] VITALS: BP 107/64
[2025-04-06] MEDS: LOVENOX 40 MG SC (16:30)
[2025-04-06] MEDS: LIPITOR 10 MG PO (16:31)
[2025-04-06] MEDS: MAALOX 30 ML PO (17:05)
[2025-04-06] MEDS: REMOVE LIDOCAINE PATCH 1 PATCH REMOVE (19:26)
[2025-04-06] MEDS: SENOKOT PO (19:29)
[2025-04-06 23:00] VITALS: BP 121/69
[2025-04-07] MEDS: NON-FORMULARY ITEM 1000 MG PO (05:05)
[2025-04-07] MEDS: SYNTHROID 175 MCG PO (05:05)
--- NOTE | 2025-04-07 07:20 | W.PN.UPDATE ---
Update Note
Progress Note Update
The patient was seen and examined by Orthopedic surgery this morning on rounds. He reports that he is feeling better. Fluid cultures from right and left knees finalized without growth after 72 hours. Pain control per primary team. Ice and
elevation for edema control. Continue treatment per primary team and ID. PT/OT. WBAT B/L LE. Orthopedic surgery will sign off at this time. Please re-engage with any further questions or concerns.
[2025-04-07 07:30] VITALS: BP 128/53
[2025-04-07] MEDS: SENOKOT PO ×2 (08:49→08:55)
[2025-04-07] MEDS: OSCAL CAL 500 500 MG PO (08:49)
[2025-04-07] MEDS: DELTASONE 5 MG PO (08:49)
[2025-04-07] MEDS: CELEBREX 100 MG PO (08:49)
[2025-04-07] MEDS: ZESTRIL 40 MG PO (08:49)
[2025-04-07] MEDS: NORVASC 5 MG PO (08:49)
[2025-04-07] MEDS: MIRALAX PO ×2 (08:49→08:56)
[2025-04-07] MEDS: CYANOCOBALAMIN 1000 MCG IM (08:50)
[2025-04-07] MEDS: LIDOCAINE 4% PATCH 2 PATCH TOPICAL (08:50)
[2025-04-07] MEDS: ROCEPHIN 2000 MG IV (11:03)
[2025-04-07] MEDS: STERILE WATER FOR INJECTION 20 ML IV (11:03)
--- NOTE | 2025-04-07 11:44 | W.DCSUMMARY ---
Addendum entered and electronically signed by Vin Barber MD 04/07/25 15:52:
acute pubic symphsis osteomyelitis
Original Note:
Discharge Summary
Discharge Data
Date of Admission: 04/03/25
Date of Discharge: 04/07/25
-
Pending Results: No
Hospital Course
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
Presented with bilateral knee pain and fever of 101.5. X-ray of the right knee demonstrated large suprapatellar effusion. Ortho evaluated. Underwent thoracentesis. Infectious diseases consulted. Recommended IV antibiotics. Fortunately,
arthrocentesis culture was negative. Orthopedic surgery then signed off and infectious diseases recommended to discharge home with continuation of IV antibiotics with Rocephin until April 27, 2025 for pelvic osteomyelitis.
Pelvis CT
IMPRESSION:
The previously seen right abductor musculature rim-enhancing collections are no longer visualized. There is persistent erosive changes of the pubic symphysis with mild adjacent soft tissue thickening on the right which is stable from prior and
likely related to the known osteomyelitis.
CXR
IMPRESSION:
Right upper extremity PICC with catheter tip projecting over the superior vena cava.
Knee Xray
IMPRESSION:
Large suprapatellar effusion. Moderate lateral joint space narrowing.
PICC line should be removed once antibiotic course is completed
Follow-up with your primary physician and a GI doctor for workup of iron deficiency and anemia.
Seen and examined on day of discharge which was 04/07/2025. No new complaints. No acute overnight events.
NAD, comfortable
So anicteric
Moist mucous membrane
CTA
S1-S2
Soft nontender nondistended
More than 30 minutes spent in discharge including
Final examination of the patient
Summarizing hospital stay
Instructions for continuing care to all relevant caregivers
Preparation of discharge records, prescriptions, and referral forms
Total time spent (in minutes): 33mins
Discharge Plan
-
Patient Disposition: Home with Home Care
Discharge Diagnosis/Procedures: Fever with leukocytosis
Pubic symphysis osteomyelitis on IV antibiotics
Right adductor muscle abscess
Knee pain with bilateral arthrocentesis
Vitamin B12 and iron deficiency
Hypokalemia
Hyponatremia
History of urethral stricture
History of prostate cancer with prostatectomy and radiation
Hypertension
History of Graves' disease with hypothyroidism now
Hyperlipidemia
Diet: As tolerated
Activity: As tolerated
Driving Restrictions: No driving until pain is completely better
Blood Work: CBC and BMP in 1 week .vitamin B12 within 1 month.
Other Services: VN, PT and OT
Activity Restrictions/Additional Instructions:
Presented with bilateral knee pain and fever of 101.5. X-ray of the right knee demonstrated large suprapatellar effusion. Ortho evaluated. Underwent thoracentesis. Infectious diseases consulted. Recommended IV antibiotics. Fortunately,
arthrocentesis culture was negative. Orthopedic surgery then signed off and infectious diseases recommended to discharge home with continuation of IV antibiotics with Rocephin until April 27, 2025 for pelvic osteomyelitis.
Pelvis CT
IMPRESSION:
The previously seen right abductor musculature rim-enhancing collections are no longer visualized. There is persistent erosive changes of the pubic symphysis with mild adjacent soft tissue thickening on the right which is stable from prior and
likely related to the known osteomyelitis.
CXR
IMPRESSION:
Right upper extremity PICC with catheter tip projecting over the superior vena cava.
Knee Xray
IMPRESSION:
Large suprapatellar effusion. Moderate lateral joint space narrowing.
PICC line should be removed once antibiotic course is completed
Follow-up with your primary physician and a GI doctor for workup of iron deficiency and anemia.
Referrals:
Mane Simpson MD [Family Provider, Family Practice]
Vijay Diaz MD [Active, Orthopedics]
Prescriptions:
New
lidocaine 4 % Adhesive Patch,Medicated
2 patch topical DAILY Qty: 0 0RF
ferrous sulfate 325 mg (65 mg iron) tablet
325 mg PO DAILY Qty: 30 0RF
cyanocobalamin (vitamin B-12) 1,000 mcg capsule
1,000 mcg PO DAILY Qty: 30 0RF
Continued
levothyroxine 175 mcg tablet
175 mcg PO MOTUWETHFRSA@0600
prednisone 5 mg tablet
5 mg PO DAILY
simvastatin 20 mg tablet
20 mg PO QPM
lisinopril 40 mg tablet
40 mg PO DAILY
abiraterone [Zytiga] 250 mg Tablet
1,000 mg PO DAILY@0600
Rx Instructions:
must be taken on empty stomach, at least 1 hr before or 2 hrs after a meal/food. takes at 6am
patient can take his own med
amlodipine 5 mg tablet
5 mg PO DAILY
calcium carbonate 500 mg calcium (1,250 mg) Tablet
500 mg PO DAILY
ceftriaxone 2 gram Recon Soln
2,000 mg IV Q24H Qty: 0 0RF
Rx Instructions:
for 7 days starting 04/03/25
Discharge Orders:
Discharge Patient (As Directed); Ordered 04/07/25
Ordered By: Vin Barber
Discharge Date and Time
Print Language: ESTONIAN
--- NOTE | 2025-04-07 13:06 | CM ---
CM reviewed chart, patient seen bedside.
Patient for d/c today, update to [facility].
[facility] following patient, will resume services upon d.c.
IMM verbally reviewed, provided with copy, placed in chart.
to transport home.
CM will continue to follow.
Plan; home with [facility], [facility] Resumption of Services
[facility]
--- NOTE | 2025-04-07 14:37 | W.PN.ID1 ---
Date of Service
Date of Service: April 07, 2025
Today's Communication
DC home.
Assessment / Plan
# Fever - resolved
# Leukocytosis- resolved
# Acute bilateral knee pain with effusion - probable musculoskeletal strain
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
# hx prostate ca s/p prostatectomy/XRT 2007; recurrence 3 yrs ago currently on Zytiga/low dose prednisone
# Urethral stricture, self-cath 2x/week to dilate
- COVID/Flu neg
- Blood cx's neg to date
- Picc site does not look infected
- L knee synovial fluid: 14,050 WBC, 94%PMN, no crystals, cx neg
- R knee synovial fluid: 36,900 WBC, 95%PMN, no crystals, cx neg
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
- DC home today.
Chief Complaint
-: Other (Bilateral knee pain)
Subjective / Review of Systems
Waiting to go home.
Knees continue to improve.
Vital Signs / Physical Exam
Vital Signs
Vital Signs
Temp Pulse Resp BP Pulse Ox
97.4 F 58 16 128/53 100
04/07/25 07:30 04/07/25 07:30 04/07/25 07:30 04/07/25 07:30 04/07/25 07:30
Physical Exam
Constitutional: No Acute Distress and Comfortable
Eyes: No Conjunctival Hemorrhage and Sclera Anicteric
Cardiovascular: Regular Rate and S1/S2
Pulmonary: Clear
Gastrointestinal: Soft, Non Tender, Non Distended and Normal Bowel Sounds
Extremities: Edema (Decreased BLE)
Musculoskeletal: Joint Effusion (R>L knee improving)
Neurological: AO x 3
Lines: PICC (RUE intact)
Objective Data
Lab Data
Lab Results
04/06/25 04:23
04/06/25 04:23
ESR 61 mm/hour (0-20) H 04/03/25 11:39
Estimated Creat Clear 70 ml/min 04/06/25 04:23
Lactic Acid 0.7 mmol/L (0.7-2.0) 04/03/25 21:39
Total Bilirubin 2.3 mg/dl (0.2-1.3) H 04/03/25 11:38
AST 23 U/L (17-59) 04/03/25 11:38
ALT 15 U/L (0-50) 04/03/25 11:38
Alkaline Phosphatase 81 U/L (38-126) 04/03/25 11:38
C-Reactive Protein 175.50 mg/L (0.0-10.00) H 04/03/25 11:39
Most recent labs reviewed.
Micro Results:
04/03/25 11:44 Blood Culture - Preliminary
Blood/Venous No Growth in 4 days- Final report to follow
04/03/25 11:38 Blood Culture - Preliminary
Blood/Venous No Growth in 4 days- Final report to follow
04/04/25 15:59 Blood Culture - Preliminary
Blood/Venous No Growth in 48 hours- Final report to follow
04/03/25 16:51 Body Fluid Culture - Final
Joint Fluid No Growth After 72 Hours
Gram Stain - Final
04/03/25 14:58 Body Fluid Culture - Final
Joint Fluid No Growth After 72 Hours
Gram Stain - Final
04/03/25 16:51 Urine Culture - Final
Urine NO GROWTH
04/03/25 14:06 Influenza Types A & B ([facility]) - Final
Nasal Swab Negative for Influenza A & B, NAAT
Negative results must be combined with clinical observations
and patient history.
Nucleic Acid Amplification test (NAAT)performed on the
[employer] ID NOW platform.
04/04/25 R Knee xray: Large suprapatellar effusion. Moderate lateral joint space narrowing.
04/03/[address]: The previously seen right abductor musculature rim-enhancing collections are no longer visualized. There is persistent erosive changes of the pubic symphysis with mild adjacent soft tissue thickening on the right which is stable
from prior and likely related to the known osteomyelitis.
--- NOTE | 2025-04-07 15:05 | PN.CDI ---
CDI
- -
CDI:
Physician Documentation Request
Admit Date: 04/03/25 17:18
Dear Doctor Sunil,
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
Please clarify which of the following accurately represents the acuity of the osteomyelitis:
____ Acute
Chronic
____ Other
Use of terms such as suspected, likely, concern for, or probable (associated with a specific diagnosis that is being evaluated, monitored, or treated as if it exists) are acceptable and can be coded in the inpatient setting, when documented at the
time of discharge.
Thank you,
Shanna Johnson RN BSN
CDI Specialist
tiger text
Please use your independent medical judgment in providing your response.
== END 2025-04-07 15:54 | disposition home health service (06) | DRG 565 ==
LOC: 4 WEST ACU 17:18
PROVIDERS: Hospitalist; Nurse Practitioner Family; Registered Nurse; ADMITTING PHYSICIAN Internal Medicine; ATTENDING PHYSICIAN Hospitalist; CONSULT PHYSICIAN Internal Medicine Infectious Disease; EMERGENCY PHYSICIAN Student in an Organized Health Care Education/Training Program; FAMILY PHYSICIAN Family Medicine
PROC: 0S9D3ZZ Drainage of Left Knee Joint, Percutaneous Approach (ICD-10-PCS; 2025-04-03)
DX: M25.462 Effusion, left knee (principal); D84.9 Immunodeficiency, unspecified; E27.3 Drug-induced adrenocortical insufficiency; M86.18 Other acute osteomyelitis, other site; E87.20 Acidosis, unspecified; E87.1 Hypo-osmolality and hyponatremia; M60.051 Infective myositis, right thigh; M25.461 Effusion, right knee; I10 Essential (primary) hypertension; N35.919 Unspecified urethral stricture, male, unspecified site; E03.9 Hypothyroidism, unspecified; E78.00 Pure hypercholesterolemia, unspecified; E53.8 Deficiency of other specified B group vitamins; E61.1 Iron deficiency; R50.9 Fever, unspecified; E87.6 Hypokalemia; Z79.52 Long term (current) use of systemic steroids; Z90.79 Acquired absence of other genital organ(s); Z85.46 Personal history of malignant neoplasm of prostate; Z92.21 Personal history of antineoplastic chemotherapy; Z11.52 Encounter for screening for COVID-19; Z92.3 Personal history of irradiation; Z79.890 Hormone replacement therapy
CPT/HCPCS: 20610; 71045; 72193; 73564; 80048; 80053; 81003; 81015; 82306; 82607; 82728; 83540; 83550; 83605; 83735; 84550; 85025; 85027; 85652; 86140; 86160; 87015; 87040; 87070; 87086; 87205; 87476; 87502; 87811; 89051; 89060; 93306; 96374; 97163; 97166; 97167; 97530; 99285; J2916; Q9967